=== PATIENT | female | born 1955 | race Caucasian/White ===

== ENCOUNTER 2017-08-27 10:32 | Emergency (ER) | payer OTHER ==
[2017-08-27] MEDS ORDERED: methylPREDNISolone Sod Succ/PF 125 MG/2 ML VIAL ONE (11:00)
[2017-08-27] MEDS ORDERED: Magnesium 2 GM/NS 0.9% 50 ML 2 GM in Premix Bag 1 BAG IVPB SCH (11:15)
== END 2017-08-27 12:55 | disposition home or self-care (01) ==
LOC: ERS 10:32
DX: J44.1 Chronic obstructive pulmonary disease with (acute) exacerbation (principal); E11.9 Type 2 diabetes mellitus without complications; I10 Essential (primary) hypertension; J45.909 Unspecified asthma, uncomplicated; F41.9 Anxiety disorder, unspecified; F17.210 Nicotine dependence, cigarettes, uncomplicated; Z79.4 Long term (current) use of insulin; Z79.899 Other long term (current) drug therapy
CPT/HCPCS: 96365; 96375; J2930; J3475

== ENCOUNTER 2018-01-10 09:31 | Inpatient (IN) | payer OTHER ==
--- NOTE | 2018-01-10 10:15 | RAD ---
PORTABLE CHEST: Date: 01/10/18 PROVIDED CLINICAL HISTORY: Cough. FINDINGS: Comparison with 03/10/16. Cardiac silhouette appears enlarged, which may be at least partially on the basis of portable techniq ue. Prominence of the pulmonary interstitium is redemonstrated. No definite focal consolidation, pleu ral fluid, or pneumothorax apparent. Evaluation is limited by patient body habitus. IMPRESSION: No definite evidence for an acute cardiopulmonary process. If there is persistent clinical concern, f ollow-up PA and lateral views of the chest are recommended. POS: [facility]
[2018-01-10 10:19] LABS: #Lymphocytes 0.7 thou/uL (1.20-3.40); #Monocytes 0.9 thou/uL (0.11-0.59); #Neutrophils 8.5 thou/uL (1.40-6.50); %Basophils 0.2 % (0.0-1.0); %Eosinophils 0.2 % (0.0-10.0); %Lymphocytes 6.5 % (21.0-51.0); %Monocytes 8.6 % (0.0-10.0); %Neutrophils 84.6 % (42.0-75.0); Hemoglobin 10.9 g/dL (12.0-16.0); Mean Corpuscular HGB CONC 32.1 g/dL (32.0-36.0); Mean Corpuscular Hemoglobin 29.1 pg (27.0-31.0); Mean Corpuscular Volume 90.6 fl (81.0-99.0); Mean Platelet Volume 7.8 fL (7.4-10.4); Platelet Count 239 thou/uL (130-400); RBC Distribution Width 17.4 % (11.5-14.5); Red Blood Cell (RBC) Count 3.75 mill/uL (4.20-5.40)
[2018-01-10 10:23] LABS: ALT (SGPT) Less than 7 U/L (8-55); AST (SGOT) 11 U/L (5-34); Albumin 3.7 g/dL (3.4-4.8); Alkaline Phosphatase 76 U/L (40-150); Anion Gap 12 mmol/L (10-20); BUN (Urea Nitrogen) 10 mg/dL (9.8-20.1); Bilirubin, Total 0.7 mg/dL (0.2-1.2); Calc. Creatinine Clearance 0 mL/min (70-130); Calcium 10.6 mg/dL (7.8-10.44); Carbon Dioxide 27 mmol/L (23-31); Chloride 96 mmol/L (98-107); Estimated GFR-MDRD Greater than 90; Glucose 169 mg/dL (80-115); Protein, Total 7.7 g/dL (6.0-8.3); Sodium 131 mmol/L (136-145)
[2018-01-10] MEDS ORDERED: Acetaminophen 500 MG TAB ONE (10:26)
[2018-01-10 10:33] LABS: CKMB 0.7 ng/mL (0-6.6); Troponin I Less than 0.010 ng/mL (< 0.028)
[2018-01-10] MEDS ORDERED: Azithromycin 500 MG VIAL ONE (10:51)
--- NOTE | 2018-01-10 12:18 | PDOC.FPRHP ---
- History of Present Illness Chief Complaint: COPD exacerbation History of Present Illness: This stable 62yo F is being admitted for treatment of COPD exacerbation. She has a pertinent PMH including COPD, autoimmune hepatitis,, tobacco abuse ( stopped 2 weeks ago), and DM. She is complaining of fever, cough, and body aches. This started about 6 days ago. She has been feeling weak overall during this time. She has been coughing up yellow sputum. She has a bipap machine at home which she normally uses only at night but she has been wearing it all day for the last few days. She was evaluated in clinic 3 days ago and was prescribed levoquin and prednisone but was not able to pick them up from the pharmacy because her car broke down and she had no one who could help her pick them up. She also complains of sore throat and ear pain. ED Course: steroids, rocephin, azithromycin, bipap cultures taken admitted to IMCU 2/2 sepsis and bipap requirement - Allergies/Adverse Reactions Allergies Allergy/AdvReac Type Severity Reaction Status Date / Time surgical steel Allergy Uncoded 01/10/18 12:35 - Home Medications Medication Instructions Recorded Confirmed Type Acetaminophen [Acetaminophen Extra 1,000 mg PO Q6HR PRN 01/10/18 01/10/18 History Strength] Acetaminophen [Acetaminophen Extra 500 mg PO Q6HR PRN 01/10/18 01/10/18 History Strength] Budesonide-Formoterol [Symbicort 1 puff INH BID 01/10/18 01/10/18 History 160-4.5] Cetirizine HCl [Zyrtec] 10 mg PO DAILY 01/10/18 01/10/18 History DULoxetine HCl 60 mg PO DAILY 01/10/18 01/10/18 History Fluticasone Propionate [Flonase 1 spray EA NARE DAILY 01/10/18 01/10/18 History Allergy Relief] Insulin Detemir 100 UNITS/ML 40 unit SQ QAM 01/10/18 01/10/18 History [Levemir] Lisinopril 10 mg PO DAILY 01/10/18 01/10/18 History Ondansetron [Zofran ODT] 4 mg PO Q6HR PRN 01/10/18 01/10/18 History Pantoprazole [Protonix] 40 mg PO BID 01/10/18 01/10/18 History Tiotropium [Spiriva Handihaler] 18 mcg INH DAILY 01/10/18 01/10/18 History azaTHIOprine [Azasan] 100 mg PO DAILY 01/10/18 01/10/18 History metFORMIN HCl 1,000 mg PO BID-WM 01/10/18 01/10/18 History - History PMHx: COPD, autoimmune hepatitis, PTSD, MDS, incontinence, tobacco abuse ( stopped 2 weeks ago), fibromyalgia, GERD, and DM PSHx: bowel resection, total hysterectomy FHx: patient adopted Social: 1/2 ppd smoker for 52 years, stopped 2 weeks ago - Review of Systems General: reports: fever/chills, fatigue. denies: weight/appetite/sleep changes Eyes: denies: eye pain, vision changes ENT: reports: nasal congestion, rhinorrhea Respiratory: reports: cough, congestion, shortness of breath Cardiovascular: denies: chest pain, palpitation, edema Gastrointestinal: denies: nausea, vomiting, diarrhea Genitourinary: reports: incontinence. denies: dysuria, polyuria Skin: denies: rashes, itching Musculoskeletal: denies: pain, arthritis/arthralgias Neurological: denies: numbness, weakness Psychological: denies: anxiety, depression - Vital signs BP: [144/88] HR: [105] RR: [34] Tmax: [100.7] Pox: [95]% on [bipap] Wt: [94.57 ] - Physical Exam Constitutional: NAD, awake, alert and oriented HEENT: normocephalic and atraumatic, PERRLA, TM's clear and intact (clear fluid behind TM), MMM Neck: supple, FROM Heart: RRR, normal S1/S2 -Lungs: inspiratory and expiratory wheezes throughout, good air movement, crackles at bases bilaterally Abdomen: soft, non-tender, bowel sounds present Musculoskeletal: normal structure, ROM grossly normal Neurological: no focal deficit, CN II-XII intact Skin: no rash/lesions, capillary refill <2 seconds Heme/Lymphatic: no unusual bruising or bleeding Psychiatric: normal mood and affect, good judgment and insight FMR H&P: Results - Labs Result Diagrams: 01/11/18 04:02 01/11/18 04:02 Lab results: WBC 10.0 thou/uL (4.8-10.8) 01/10/18 09:57 Hgb 10.9 g/dL (12.0-16.0) L 01/10/18 09:57 Hct 34.0 % (36.0-47.0) L 01/10/18 09:57 MCV 90.6 fl (81.0-99.0) 01/10/18 09:57 Plt Count 239 thou/uL (130-400) 01/10/18 09:57 Neutrophils % 84.6 % (42.0-75.0) H 01/10/18 09:57 Sodium 131 mmol/L (136-145) L 01/10/18 09:57 Potassium 4.0 mmol/L (3.5-5.1) 01/10/18 09:57 Chloride 96 mmol/L (98-107) L 01/10/18 09:57 Carbon Dioxide 27 mmol/L (23-31) 01/10/18 09:57 BUN 10 mg/dL (9.8-20.1) 01/10/18 09:57 Creatinine 0.64 mg/dL (0.6-1.1) 01/10/18 09:57 Glucose 169 mg/dL (80-115) H 01/10/18 09:57 Lactic Acid 1.6 mmol/L (0.5-2.2) 01/10/18 09:57 Calcium 10.6 mg/dL (7.8-10.44) H 01/10/18 09:57 Total Bilirubin 0.7 mg/dL (0.2-1.2) 01/10/18 09:57 AST 11 U/L (5-34) 01/10/18 09:57 ALT Less than 7 U/L (8-55) L 01/10/18 09:57 Alkaline Phosphatase 76 U/L (40-150) 01/10/18 09:57 CK-MB (CK-2) 0.7 ng/mL (0-6.6) 01/10/18 10:01 Serum Total Protein 7.7 g/dL (6.0-8.3) 01/10/18 09:57 Albumin 3.7 g/dL (3.4-4.8) 01/10/18 09:57 FMR H&P: A/P - Problem List (1) Acute respiratory failure with hypoxia Current Visit: No Status: Acute Code(s): J96.01 - ACUTE RESPIRATORY FAILURE WITH HYPOXIA (2) COPD with exacerbation Current Visit: No Status: Acute Code(s): J44.1 - CHRONIC OBSTRUCTIVE PULMONARY DISEASE W (ACUTE) EXACERBATION (3) Autoimmune hepatitis Current Visit: No Status: Chronic Code(s): K75.4 - AUTOIMMUNE HEPATITIS (4) Diabetes mellitus type 2 in obese Current Visit: No Status: Chronic Code(s): E11.9 - TYPE 2 DIABETES MELLITUS WITHOUT COMPLICATIONS; E66.9 - OBESITY, UNSPECIFIED (5) GERD (gastroesophageal reflux disease) Current Visit: No Status: Chronic Code(s): K21.9 - GASTRO-ESOPHAGEAL REFLUX DISEASE WITHOUT ESOPHAGITIS (6) HTN (hypertension) Current Visit: No Status: Chronic Code(s): I10 - ESSENTIAL (PRIMARY) HYPERTENSION (7) Tobacco abuse Current Visit: No Status: Chronic Code(s): Z72.0 - TOBACCO USE - Plan Stable 62 yo F w/ long smoking history admitted for COPD exacerbation # COPD exacerbation - yehuda sears in ED - levoquin, prednisone, duoneb - Bipap, wean as tolerated - blood cultures - meets sepsis criteria 2/2 tachycardia, fever, increased RR on presentation - CXR not convincing for PNA, f/u PA and lateral in AM # Autoimmune Hepatitis - cont home azathriopine - transaminases WNL # MDS - home meds # GERD - home meds # DM - home insulin regimen per patient - 40 U levemir AM - 20U humalog 75/25 w/ meals - accuchecks with meals & 0200, SSI # GERD - home meds # PPx - lovenox, SCDS # Code - full Dispo: 2-3 days pending improvement in resp status FMR H&P: Upper Level - Pertinent history Pt is a 62yo CF with PMHx COPD with a 25+ pack yr tobacco hx presents with a 5 day history of cough, fever (Tmax 100.7), sob and malaise. Also endorses increase in sputum production, yellow to green in color with inc need for duoneb treatment at home. 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 Pt did not start home meds as prescribed due to transportation difficulties. States she felt worse over the weekend, trying her home CPAP throughout the day to improve symptoms with minimal relief, therefore called EMS this am for progressive SOB. Her COPD hx is significant for multiple prior hospitalizations requiring BIPAP tx and abx, but has never been intubated. At baseline, pt endorses "good control " of COPD sxs with daily spiriva and duonebs. Not on supplemental O2 at home. PMHx also significant for DM2, autoimmune hepatitis, HTN, SHEBA on CPAP qhs. - Pertinent findings Pertinent findings include: Satting well on Bipap, but initially hypoxic at 85% on room air after duoneb. Febrile to 100.7. Appears mildly dehydrated/dry mucus membranes. Mild respiratory distress with bilateral insp/exp ronchi in both lung echeverria and exp wheezes. No peripheral edema, pulses intact. Soft abd with hepatomegaly. WBC 10 w/ left shift, chronic stable anemia, no BERENICE, mild hyponatremia to 131. CXR- diffuse peribronchial cuffing and perihilar increased markings diffusely. no focal consolidation or lobar infiltrate. - Plan Date/Time: 01/10/18 1217 62yo CF with PMHx DM2, autoimmune hepatitis, HTN, SHEBA and COPD p/w- 1) acute on chronic COPD- levaquin + steroids + duonebs scheduled & prn. continue bipap until able to wean to O2 by nasal cannula. given immunocompromising rx for authoimmune hepatitis tx, low threshold to expand abx coverage. no lactic acid and no wbc at this time. will monitor for clinical improvement and adjust therapy as indicated. 2) DM2- anticipate worsening with steroids given for COPD. Continue home insulin dose and add sliding scale. DM diet. 3) HTN- home rx 4) SHEBA- currently on Bipap. wean as tolerated and transition to cpap qhs. I, [Iman Blanca], have evaluated this patient and agree with findings/plan as outlined by above wireless internet installer resident. Pertinent changes/additions are listed in my assessment & plan. Attending Addendum - Attending Addendum Date/Time: 01/11/18 [id number] I personally evaluated the patient and discussed the management with Dr. Santoro at the time of admission yesterday, 01/10/2018. I agree with the History, Examination, Assessment and Plan documented above with any addition or exceptions noted below.
[2018-01-10 12:28] LABS: Bilirubin Moderate (Negative); Blood, Urine Moderate (Negative); Clarity TURBID (Clear); Glucose, Urine (Dipstick) Negative (Negative); Leukocyte Small (Negative); Nitrite Negative (Negative); Protein, Urine (Dipstick) 300 mg/dL (Neg-Trace)
[2018-01-10 12:31] LABS: Bacteria/HPF 4+ HPF (None Seen)
[2018-01-10] MEDS ORDERED: Sodium Chloride 0.9% 1,000 ML IV SCH (12:31)
[2018-01-10] MEDS ORDERED: Bisacodyl 5 MG TAB PO PRN (12:31)
[2018-01-10] MEDS ORDERED: Enoxaparin Sodium 30 MG/0.3 ML SYRINGE SC SCH (12:31)
[2018-01-10] MEDS ORDERED: Ondansetron ODT 4 MG TAB PO PRN (12:31)
[2018-01-10] MEDS ORDERED: cefTRIAXone\\ROCEPHIN 1 GM in Sodium Chloride 0.9% 100 ML IVPB SCH (12:31)
[2018-01-10 12:32] LABS: Pathc Cast-AUWi Flag 10.71 (0-2.49)
[2018-01-10 12:42] LABS: Crystals/HPF 2+ AMORPH URATES HPF (Negative); Hyaline Casts/LPF 0-3 HYALINE CAST LPF (0-3 Hyaline); RBC/HPF 0-3 HPF (0-3)
[2018-01-10 12:43] VITALS: BMI 40.7
[2018-01-10 12:43] LABS: Other Casts/LPF 0-3 COARSE GRAN LPF (0-3 Hyaline)
[2018-01-10] MEDS ORDERED: Ipratropium Bromide 2.5 ml Neb NEB PRN (12:47)
[2018-01-10] MEDS ORDERED: Magnesium Sulfate 3 GM, Admixture Fee 1 EACH in Sodium Chloride 0.9% 100 ML IVPB SCH (14:00)
[2018-01-10] MEDS ORDERED: Dextrose 50% Abboject 50 ML SYRINGE SLOW IVP PRN (14:41)
[2018-01-10] MEDS ORDERED: Dextrose 5% in Water 1,000 ML IV PRN (14:41)
[2018-01-10] MEDS: Sodium Chloride 0.9% 1,000 ML IV SCH ×2 (16:34→23:18)
[2018-01-10] MEDS ORDERED: Insulin NPH/Reg Insulin Hm 300 UNITS/3 ML VIAL SC SCH (17:00)
[2018-01-10] MEDS ORDERED: HumaLOG 300 UNITS/3 ML VIAL SC SCH ×2 (17:00→21:00)
--- NOTE | 2018-01-10 17:04 | CON ---
DATE OF CONSULTATION: 01/10/2018 HISTORY OF PRESENT ILLNESS: Ms. Can is a 62-year-old female. She tells me she has been followed by Dr. Bolton [facility]. She is followed by [facility]. She was admitted to the intermediate care unit on BiPAP. I was consulted. She has a prior history of chronic obstructive pulmonary disease. I do not find an y pulmonary function test in the records. She was admitted in 03/2016 here and what was felt to be C OPD exacerbation. She apparently has been hospitalized across town as well with this. She presented this morning with complaints of shortness of breath and has been admitted on BiPAP. PAST MEDICAL HISTORY: Remarkable for, 1. Autoimmune hepatitis on Imuran. 2. History of tobacco use. 3. Diabetes. 4. History of anxiety. 5. History of stress urinary incontinence. 6. History of chronic pain. 7. History of hypertension. 8. History of rhinitis. 9. History of reflux disease. 10. History of coronary disease. 11. History of treated hepatitis C. 12. History of a colectomy, it is not clear to me what the reason was. 13. History of foot surgery. 14. History of cholecystectomy. 15. History of herniorrhaphy. 16. History of hysterectomy. 17. History of cervical spine fusion. FAMILY HISTORY: There is no family history since she is adopted. SOCIAL HISTORY: She was a smoker up until 2 weeks ago. She is not a daily drinker. She does not us e drugs. CURRENT MEDICATIONS: Have been reviewed. REVIEW OF SYSTEMS: Twelve point is otherwise negative. She has had a cough, but no hemoptysis. PHYSICAL EXAMINATION: VITAL SIGNS: Temperature 99.2, heart rate 89, respiratory rate is 20, oximetry is 98% on BiPAP and b lood pressure 141/89. HEENT: Pupils are equal. Sclerae is anicteric. NECK: Supple, no lymphadenopathy. LUNGS: Clear and distant. HEART: Regular rhythm, no S3. ABDOMEN: Soft and nontender. EXTREMITIES: Without clubbing, cyanosis, or edema. NEUROLOGIC: Nonfocal. IMAGING DATA: Chest radiograph shows no alveolar infiltrates, reviewed by me. LABORATORY DATA: White count 10, hemoglobin 10.9, platelets 239. Sodium 131, potassium 4, chloride 96, bicarbonate 27, BUN 10, creatinine 0.64, glucose 169, calcium 1 0.6, and globulin is 4.0. IMPRESSION: 1. Acute on chronic respiratory failure secondary to chronic obstructive pulmonary disease exacerbat ion with hypoxemia. 2. Chronic obstructive pulmonary disease exacerbation with smoking use until 2 weeks ago. 3. Autoimmune hepatitis on Imuran. 4. Obesity? coexistent sleep apnea. 5. History of chronic pain. I do not feel she needs BiPAP. I reexamined her after BiPAP was removed and she was sitting on the s zhao of the bed using no accessory muscles and not in distress. We will continue with IV steroids, ne bulized treatments, and IV fluids. She could be switched to p.o. antibiotics since there is no clini balwinder evidence that she has pneumonia. This is a 70-minute consult in which 50% of the time was spent coordinating care on the unit.
[2018-01-10] MEDS: Insulin Regular 300 UNITS/3 ML VIAL SC PRN ×2 (18:27→20:16)
[2018-01-10] MEDS: Mometasone/Formoterol 120 PUFF INHALER INH SCH (18:38)
[2018-01-10] MEDS: Famotidine 20 MG TAB PO SCH (20:15)
[2018-01-10] MEDS: Docusate 100 MG CAP PO SCH (20:15)
[2018-01-10] MEDS ORDERED: Non-Formulary Item 1 EACH (Budesonide-Formoterol [Symbicort 80-4.5] 2 PUFF) INH SCH (21:00)
[2018-01-11 04:14] LABS: #Eosinphils 0.1 thou/uL (0.0-0.7); #Lymphocytes 0.2 thou/uL (1.20-3.40); #Monocytes 0.1 thou/uL (0.11-0.59); #Neutrophils 3.9 thou/uL (1.40-6.50); %Basophils 0.2 % (0.0-1.0); %Eosinophils 1.4 % (0.0-10.0); %Lymphocytes 5.1 % (21.0-51.0); %Monocytes 1.9 % (0.0-10.0); %Neutrophils 91.5 % (42.0-75.0); Hemoglobin 9.8 g/dL (12.0-16.0); Mean Corpuscular HGB CONC 32.1 g/dL (32.0-36.0); Mean Corpuscular Hemoglobin 29.3 pg (27.0-31.0); Platelet Count 191 thou/uL (130-400); RBC Distribution Width 16.8 % (11.5-14.5); Red Blood Cell (RBC) Count 3.36 mill/uL (4.20-5.40); White Blood Cell (WBC) Count 4.3 thou/uL (4.8-10.8)
[2018-01-11 04:29] LABS: ALT (SGPT) Less than 7 U/L (8-55); AST (SGOT) 11 U/L (5-34); Albumin 3.3 g/dL (3.4-4.8); Alkaline Phosphatase 65 U/L (40-150); Anion Gap 10 mmol/L (10-20); BUN (Urea Nitrogen) 11 mg/dL (9.8-20.1); Bilirubin, Total 0.2 mg/dL (0.2-1.2); Calc. Creatinine Clearance 143 mL/min (70-130); Carbon Dioxide 26 mmol/L (23-31); Chloride 104 mmol/L (98-107); Estimated GFR-MDRD Greater than 90; Globulin 3.7 g/dL (2.4-3.5); Glucose 253 mg/dL (80-115); Potassium 4.4 mmol/L (3.5-5.1); Sodium 136 mmol/L (136-145)
[2018-01-11] MEDS: Insulin Regular 300 UNITS/3 ML VIAL SC PRN (05:43)
[2018-01-11] MEDS: Sodium Chloride 0.9% 1,000 ML IV SCH (05:46)
--- NOTE | 2018-01-11 06:14 | PDOC.FM ---
- Subjective Subjective: Patient states that breathing has improved compared to yesterday. She has not required BiPAP since yesterday. - Objective MAR Reviewed: Yes Vital Signs & Weight: Vital Signs (12 hours) Temp Pulse Resp BP Pulse Ox 01/11/18 03:51 96.3 F L 77 22 H 116/59 L 96 01/11/18 02:01 63 18 99 01/10/18 23:58 96.5 F L 73 24 H 125/62 94 L 01/10/18 21:43 77 01/10/18 21:42 78 23 H 99 01/10/18 20:00 96.7 F L 86 18 95 01/10/18 19:34 96.7 F L 86 18 141/76 H 95 01/10/18 18:36 83 16 94 L Weight Weight 95.935 kg I&O: 01/09/18 01/10/18 01/11/18 05:59 06:59 06:59 Intake Total 3710 Output Total 1500 Balance 2210 Result Diagrams: 01/11/18 04:02 01/11/18 04:02 <Kaylin Wright - Last Filed: 01/11/18 08:26> - Objective Vital Signs & Weight: Vital Signs (12 hours) Temp Pulse Pulse Pulse Resp BP BP 01/11/18 11:11 98.1 F 96 18 01/11/18 10:01 133/74 01/11/18 09:50 79 76 133/74 01/11/18 09:31 72 18 01/11/18 07:53 97.0 F L 72 24 H 01/11/18 07:52 97.0 F L 72 24 H 01/11/18 03:51 96.3 F L 77 22 H 01/11/18 02:01 63 18 01/10/18 23:58 96.5 F L 73 24 H BP BP Pulse Ox Pulse Ox Pulse Ox 01/11/18 11:11 135/70 89 L 01/11/18 10:01 01/11/18 09:50 139/86 95 95 01/11/18 09:31 89 L 01/11/18 07:53 96 01/11/18 07:52 143/77 H 96 01/11/18 03:51 116/59 L 96 01/11/18 02:01 99 01/10/18 23:58 125/62 94 L Weight Weight 95.935 kg I&O: 01/10/18 01/11/18 01/12/18 06:59 06:59 06:59 Intake Total 3710 240 Output Total 1500 Balance 2210 240 Result Diagrams: 01/11/18 04:02 01/11/18 04:02 <Abner Williamson - Last Filed: 01/11/18 11:48> Phys Exam - Physical Examination Constitutional: NAD Respiratory: wheezing present Cardiovascular: RRR Gastrointestinal: soft RUQ tenderness to palpation Musculoskeletal: no edema Neurological: moves all 4 limbs Psychiatric: A&O x 3 <Kaylin Wright - Last Filed: 01/11/18 08:26> Dx/Plan (1) COPD with exacerbation Code(s): J44.1 - CHRONIC OBSTRUCTIVE PULMONARY DISEASE W (ACUTE) EXACERBATION Status: Acute Plan: - Switch IV to PO Levaquin. - Continue Q4 Duonebs with Q2 PRN - Continue Spiriva and Dulera. -consider changing IV steroids to PO. - antitussive added. - repeat CXR pending. (2) Normocytic anemia Code(s): D64.9 - ANEMIA, UNSPECIFIED Status: Acute Plan: -Possibly iron deficiency vs. anemia of chronic disease. - iron studies pending (3) Diabetes mellitus type 2 in obese Code(s): E11.9 - TYPE 2 DIABETES MELLITUS WITHOUT COMPLICATIONS; E66.9 - OBESITY , UNSPECIFIED Status: Chronic Plan: Levemir 40 units qhs. Diabetic diet added. Changed from mild to moderate SSI. Continue AC/HS accuchecks (4) GERD (gastroesophageal reflux disease) Code(s): K21.9 - GASTRO-ESOPHAGEAL REFLUX DISEASE WITHOUT ESOPHAGITIS Status: Chronic Plan: Continue Pepcid (5) HTN (hypertension) Code(s): I10 - ESSENTIAL (PRIMARY) HYPERTENSION Status: Chronic Plan: Continue Lisinopril. (6) Tobacco abuse Code(s): Z72.0 - TOBACCO USE Status: Chronic Plan: Counseling provided. (7) Autoimmune hepatitis Code(s): K75.4 - AUTOIMMUNE HEPATITIS Status: Chronic Plan: Azathioprine held on admission due to infection. - Plan Plan: Disposition: Improving, transfer to Medical floor. <Kaylin Wright - Last Filed: 01/11/18 08:26> Attending Addendum - Attending Addendum Date/Time: 01/11/18 1147 I personally evaluated the patient and discussed the management with Dr. Wright. I agree with and repeated the History, Examination, Assessment and Plan documented above with any addition or exceptions noted below. Improving. ROS: no f/c, no cp/palps. Diffuse wheezes, but moving air and no accessory use. COPD exac, continue current treatment. <Abner Williamson - Last Filed: 01/11/18 11:48>
[2018-01-11] MEDS ORDERED: Spiriva 18 MCG CAP (Box of 5 Caps) INH SCH ×2 (07:00)
[2018-01-11] MEDS ORDERED: predniSONE 20 MG TAB PO SCH (08:00)
[2018-01-11] MEDS ORDERED: guaiFENesin/Dextromethorphan 10 ML UDCUP PO PRN (08:26)
[2018-01-11] MEDS ORDERED: Lisinopril 5 MG TAB PO SCH (09:00)
[2018-01-11] MEDS ORDERED: Insulin Detemir 100 UNITS/ML 45 UNITS in Pre-Filled Syringe 1 EACH SC SCH (09:00)
[2018-01-11] MEDS ORDERED: Insulin Detemir 100 UNITS/ML 40 UNITS in Pre-Filled Syringe 1 EACH SC SCH (09:00)
[2018-01-11] MEDS ORDERED: azaTHIOprine 50 MG TAB PO SCH (09:00)
--- NOTE | 2018-01-11 09:28 | RAD ---
CHEST 2 VIEWS: HISTORY: COPD. COMPARISON: 01/10/18. FINDINGS: Cardiac silhouette and pulmonary vasculature are unremarkable. Mediastinum is midline. Lungs are hy perinflated. There is no confluent airspace consolidation, pneumothorax, or pleural fluid. Calcifie d granulomata are consistent with healed granulomatous disease. Degenerative changes of each shoulde r. route carrier leads overlie the chest. IMPRESSION: Chronic obstructive pulmonary disease. POS: [facility]
[2018-01-11 09:30] LABS: Iron 20 ug/dL (50-170); Iron Binding Capacity, Total 345 mcg/dL (265-497)
[2018-01-11] MEDS: Mometasone/Formoterol 120 PUFF INHALER INH SCH ×2 (09:32→19:48)
[2018-01-11] MEDS: Enoxaparin Sodium 40 MG/0.4 ML SYRINGE SC SCH (10:00)
[2018-01-11] MEDS: Famotidine 20 MG TAB PO SCH ×2 (10:01→20:33)
[2018-01-11] MEDS: Lisinopril 10 MG TAB PO SCH (10:01)
[2018-01-11] MEDS: Docusate 100 MG CAP PO SCH ×2 (10:01→20:33)
[2018-01-11] MEDS: Citalopram 20 MG TAB PO SCH (10:01)
[2018-01-11] MEDS ORDERED: cefTRIAXone\\ROCEPHIN 1 GM, Syringe 0.4 ML in Sterile Water 9.6 ML SLOW IVP SCH (11:00)
[2018-01-11] MEDS: HumaLOG 300 UNITS/3 ML VIAL SC PRN ×3 (11:17→20:44)
--- NOTE | 2018-01-11 12:47 | PRG ---
DATE OF SERVICE: 01/11/2018 Ms. Can is still wheezing. PHYSICAL EXAMINATION: VITAL SIGNS: She is afebrile, heart rate 96, respiratory rate is 18, oximetry is 89 on room air, blo od pressure 135/70. LUNGS: Lungs are remarkable for very coarse wheezes diffusely posteriorly and anteriorly. HEART: Regular rhythm. ABDOMEN: Soft. LABORATORY DATA: White count 4.3, hemoglobin 9.8, platelets 191,000. Sodium 136, potassium 4.4, chloride 104, bicarbonate 26, BUN 11, creatinine 0.6. She was taken to Radiology for a 2-view chest. Nothing new seen on her chest radiograph. IMPRESSION: Chronic obstructive pulmonary disease exacerbation. PLAN: Nebulized treatments, steroid treatments. She will be switched to p.o. antibiotics. She will probably be switched to p.o. steroids in the morning if she continues to improve. She should contin ue to be hydrated either p.o. or intravenously.
[2018-01-11] MEDS: Acetaminophen 325 MG TAB PO PRN (13:14)
--- NOTE | 2018-01-11 14:18 | PQF ---
DATE: 01-11-18 ATTN: DR. CHIQUI DESAI Please exercise your independent, professional judgment in responding to the clarification form. Clinical indicators are provided on the bottom of this form for your review Please check appropriate box(s) to clarify if the following diagnosis has been ruled in or ruled out: SEPSIS [ x ] Ruled in diagnosis [ ] Continue to treat [ x ] Resolved [ ] Ruled out diagnosis [ ] Other diagnosis [ ] Unable to determine In addition, please specify: Present on Admission (POA): [ x ] Yes [ ] No [ ] Unable to determine For continuity of documentation, please document condition throughout progress notes and discharge summary. Thank You. CLINICAL INDICATORS - SIGNS / SYMPTOMS / LABS H&P: ADMITTED TO [facility] 2/2 SEPSIS AND BIPAP REQUIREMENT, MEETS SEPSIS CRITERIA 2/2 TACHYCARDIA, FEVER, INCREASED RR ON PRESENTATION H&P: ACUTE COPD EXACERBATION WBC: 01-11-18: 4.2 RR: 34 TEMP: 100.7 HR: 105, 109 RISK FACTORS: ER DOCUMENTATION: SOB, HX OF COPD, FEVER, COUGH, PREVIOUS SMOKER, DM 2 TREATMENTS: (MAR) LEVAQUIN, IVF (This form is maintained as a part of the permanent medical record) 2014 [employer] All Rights Reserved [email or web address] Office: [phone] [facility] HOSPITALJoanie
[2018-01-11] MEDS ORDERED: Guaifenesin DM 100-10/5 ML UDCUP PO PRN (20:15)
[2018-01-11] MEDS: Nicotine 7 MG PATCH TD SCH (21:45)
[2018-01-11] MEDS ORDERED: Sterile Water 10 ML ONE (23:20)
[2018-01-12] MEDS ORDERED: HumaLOG 300 UNITS/3 ML VIAL SC PRN (02:50)
[2018-01-12] MEDS: HumaLOG 300 UNITS/3 ML VIAL SC PRN ×3 (05:57→18:20)
[2018-01-12] MEDS: Mometasone/Formoterol 120 PUFF INHALER INH SCH ×2 (05:59→19:15)
[2018-01-12] MEDS ORDERED: Spiriva 18 MCG CAP (Box of 5 Caps) INH SCH (07:00)
[2018-01-12] MEDS: Citalopram 20 MG TAB PO SCH (09:49)
[2018-01-12] MEDS: Docusate 100 MG CAP PO SCH ×2 (09:49→21:50)
[2018-01-12] MEDS: Lisinopril 10 MG TAB PO SCH (09:49)
[2018-01-12] MEDS: Famotidine 20 MG TAB PO SCH ×2 (09:50→21:50)
[2018-01-12] MEDS: Enoxaparin Sodium 40 MG/0.4 ML SYRINGE SC SCH (09:50)
[2018-01-12] MEDS: Insulin Detemir 100 UNITS/ML 50 UNITS in Pre-Filled Syringe 1 EACH SC SCH (09:50)
--- NOTE | 2018-01-12 12:05 | PDOC.FM ---
- Subjective Subjective: Patient states that her symptoms have not improved compared to yesterday. She continues to complain of productive cough and dyspnea worse without oxygen. - Objective Vital Signs & Weight: Vital Signs (12 hours) Temp Pulse Resp BP BP Pulse Ox 01/12/18 09:49 135/74 01/12/18 08:00 98.0 F 69 20 135/74 97 01/12/18 02:29 12 Weight Weight 95.935 kg I&O: 01/11/18 01/12/18 01/13/18 06:59 06:59 06:59 Intake Total 3710 480 Output Total 1500 Balance 2210 480 Result Diagrams: 01/11/18 04:02 01/11/18 04:02 <Kaylin Wright - Last Filed: 01/12/18 12:04> - Objective Vital Signs & Weight: Vital Signs (12 hours) Temp Pulse Resp BP BP Pulse Ox 01/12/18 09:49 135/74 01/12/18 08:00 98.0 F 69 20 135/74 97 01/12/18 02:29 12 Weight Weight 95.935 kg I&O: 01/11/18 01/12/18 01/13/18 06:59 06:59 06:59 Intake Total 3710 480 Output Total 1500 Balance 2210 480 Result Diagrams: 01/11/18 04:02 01/11/18 04:02 <Abner Williamson - Last Filed: 01/12/18 12:12> Phys Exam - Physical Examination Constitutional: NAD HEENT: PERRLA Respiratory: wheezing present Cardiovascular: RRR Musculoskeletal: no edema, pulses present Neurological: moves all 4 limbs Psychiatric: normal affect, A&O x 3 <Kaylin Wright - Last Filed: 01/12/18 12:04> Dx/Plan (1) COPD with exacerbation Code(s): J44.1 - CHRONIC OBSTRUCTIVE PULMONARY DISEASE W (ACUTE) EXACERBATION Status: Acute Plan: - Continue PO Levaquin. - Continue Q4 Duonebs with Q2 PRN - Continue Spiriva and Dulera. -continue PO steroids. - antitussive added. - Incentive spirometry; increase activity as tolerated. - possible d/c today (2) Normocytic anemia Code(s): D64.9 - ANEMIA, UNSPECIFIED Status: Acute Plan: - low Fe. - will begin supplemental Fe. (3) Diabetes mellitus type 2 in obese Code(s): E11.9 - TYPE 2 DIABETES MELLITUS WITHOUT COMPLICATIONS; E66.9 - OBESITY , UNSPECIFIED Status: Chronic Plan: Will increase long-acting insulin and add on mealtime insulin as well. Continue SSI (4) GERD (gastroesophageal reflux disease) Code(s): K21.9 - GASTRO-ESOPHAGEAL REFLUX DISEASE WITHOUT ESOPHAGITIS Status: Chronic Plan: Continue Pepcid (5) HTN (hypertension) Code(s): I10 - ESSENTIAL (PRIMARY) HYPERTENSION Status: Chronic Plan: Continue Lisinopril. (6) Tobacco abuse Code(s): Z72.0 - TOBACCO USE Status: Chronic Plan: Counseling provided. (7) Autoimmune hepatitis Code(s): K75.4 - AUTOIMMUNE HEPATITIS Status: Chronic Plan: Azathioprine held on admission due to infection. - Plan Plan: Disposition: stable, possible discharge tomorrow. <Kaylin Wright - Last Filed: 01/12/18 12:04> Attending Addendum - Attending Addendum Date/Time: 01/12/18 1211 I personally evaluated the patient and discussed the management with Dr. Wright. I agree with and repeated the History, Examination, Assessment and Plan documented above with any addition or exceptions noted below. ROS: no fever, chills; +cough and sputum production and shortness of breath No increased wob, exp wheezes, good air movement Continue nebs, steroids Increase insulin DVT/gi ppx - anticipate discharge tomorrow or the next day <Abner Williamson - Last Filed: 01/12/18 12:12>
[2018-01-12] MEDS: HumaLOG 300 UNITS/3 ML VIAL SC SCH ×2 (12:27→18:20)
[2018-01-12] MEDS ORDERED: Benzonatate 100 MG CAP PO SCH (15:00)
--- NOTE | 2018-01-12 19:58 | PRG ---
DATE OF SERVICE: 01/12/2018 SERVICE: Pulmonary Medicine. INTERVAL HISTORY: The patient is really doing quite well. She indicates she is 75% back to baseline , but is suggesting that she needs to be 98% back to baseline before should consider going home. She continues to have some dyspnea on exertion. She denies any chest pain, fevers, or chills. She is c oughing. The cough is becoming less productive, but she feels that there is still step down that she is having a hard time liberating. Otherwise, there were no overnight events. PHYSICAL EXAMINATION: VITAL SIGNS: Afebrile, pulse 68, blood pressure 138/84, respirations 20, saturation 94% on room air. GENERAL: The patient is awake, alert, no apparent distress. LUNGS: Decent air entry. There is a prolonged expiratory phase with polyphonic wheeze. There is al so large airway wheezing on inspiration and expiration. Dependent crackles are minimal throughout, b ibasilar regions. HEART: Normal rate, regular. ABDOMEN: Soft, nontender, nondistended. Bowel sounds are positive. MUSCULOSKELETAL: There is no cyanosis or clubbing. There is no pitting. GENITOURINARY: No Hong. NEUROLOGIC: Grossly nonfocal. ASSESSMENT: 1. Acute on chronic hypoxic respiratory failure. 2. Chronic obstructive pulmonary disease with acute exacerbation. DISCUSSION AND PLAN: We will continue antibiotics, nebulized medications and steroids. We will swit ch over to p.o. steroids. IV fluids will be interrupted. I will continue our Mucinex, but I will ge t rid of anything going to suppress her cough. If she continues to make progress and is ready to go home by tomorrow, I think this would be perfectly reasonable. She will need to complete a 10-day cou rse of prednisone, and a 7-day course of antibiotics.
[2018-01-12] MEDS: Nicotine 7 MG PATCH TD SCH (21:51)
[2018-01-13] MEDS: Acetaminophen 325 MG TAB PO PRN (03:56)
[2018-01-13] MEDS: Mometasone/Formoterol 120 PUFF INHALER INH SCH ×2 (06:32→19:07)
--- NOTE | 2018-01-13 06:48 | PDOC.FM ---
- Subjective Subjective: Pt states she feels better with CPAP last night. Walking and off and on O2. Not on home O2. Admits to wheezing but state she is much improved. - Objective Vital Signs & Weight: Vital Signs (12 hours) Temp Pulse Resp BP Pulse Ox 01/13/18 06:29 69 16 91 L 01/13/18 04:00 94 L 01/12/18 22:02 60 16 01/12/18 20:00 98.3 F 60 16 139/75 95 01/12/18 19:17 96 20 96 01/12/18 19:15 68 16 95 Weight Weight 95.935 kg I&O: 01/11/18 01/12/18 01/13/18 06:59 06:59 06:59 Intake Total 3710 480 Output Total 1500 Balance 2210 480 Result Diagrams: 01/11/18 04:02 01/11/18 04:02 <Kevin Ibrahim - Last Filed: 01/13/18 08:52> - Objective Vital Signs & Weight: Vital Signs (12 hours) Temp Pulse Resp BP BP BP Pulse Ox 01/13/18 09:52 85 18 93 L 01/13/18 08:56 142/76 H 01/13/18 08:00 98.2 F 67 20 142/76 H 93 L 01/13/18 06:29 69 16 91 L 01/13/18 04:00 94 L 01/13/18 03:45 79 131/77 94 L Weight Weight 95.935 kg I&O: 01/12/18 01/13/18 01/14/18 06:59 06:59 06:59 Intake Total 480 Balance 480 Result Diagrams: 01/11/18 04:02 01/11/18 04:02 <Abner Williamson - Last Filed: 01/13/18 11:20> Phys Exam - Physical Examination HEENT: PERRLA, moist MMs Neck: no nodes, no JVD Respiratory: wheezing present (diffuse b/l mostly expiratory) Cardiovascular: RRR, no significant murmur, no rub Gastrointestinal: soft, non-tender, no distention Musculoskeletal: no edema, pulses present Neurological: non-focal, normal sensation Psychiatric: normal affect, A&O x 3 <Kevin Ibrahim - Last Filed: 01/13/18 08:52> Dx/Plan (1) Normocytic anemia Code(s): D64.9 - ANEMIA, UNSPECIFIED Status: Acute (2) COPD with exacerbation Code(s): J44.1 - CHRONIC OBSTRUCTIVE PULMONARY DISEASE W (ACUTE) EXACERBATION Status: Acute (3) Hepatitis C Code(s): B19.20 - UNSPECIFIED VIRAL HEPATITIS C WITHOUT HEPATIC COMA Status: Acute (4) Diabetes mellitus type 2 in obese Code(s): E11.9 - TYPE 2 DIABETES MELLITUS WITHOUT COMPLICATIONS; E66.9 - OBESITY , UNSPECIFIED Status: Chronic (5) GERD (gastroesophageal reflux disease) Code(s): K21.9 - GASTRO-ESOPHAGEAL REFLUX DISEASE WITHOUT ESOPHAGITIS Status: Chronic (6) HTN (hypertension) Code(s): I10 - ESSENTIAL (PRIMARY) HYPERTENSION Status: Chronic (7) Tobacco abuse Code(s): Z72.0 - TOBACCO USE Status: Chronic (8) SHEBA (obstructive sleep apnea) Code(s): G47.33 - OBSTRUCTIVE SLEEP APNEA (ADULT) (PEDIATRIC) Status: Acute - Plan Plan: COPD Exacerbation: Continue prednisone, scheduled & PRN Albert Watts. On RA in room and now using CPAP at night. Continue to monitor respiratory status and maintain sats >88% Anemia: (Normocytic) - stable, continue Iron therapy. T2DM: BG now controlledon Levamir, mealtime insulin and SSI. On prednisone. GERD: Continue Pepcid OSAL CPAP nightly HTN: Controlled on Lisinopril Autoimmune Hepatitis: Holding medications currently. LFT's WNL. <Kevin Ibrahim - Last Filed: 01/13/18 08:52> Attending Addendum - Attending Addendum Date/Time: 01/13/18 1118 I personally evaluated the patient and discussed the management with Dr. Rowley. I agree with and repeated the History, Examination, Assessment and Plan documented above with any addition or exceptions noted below. Pt doing better. Improved cough/shortness of breath. Now with back pain x 3 days (had not told us about previously). No numbness, tingling, difficulty urinating. Will order x-rays. <Abner Williamson - Last Filed: 01/13/18 11:20>
--- NOTE | 2018-01-13 08:00 | PRG ---
DATE OF SERVICE: 01/13/2018 SERVICE: Pulmonary Medicine. INTERVAL HISTORY: The patient is doing really well from a respiratory standpoint. She got an excell ent night of sleep, because she was using her BiPAP. She continues to feel congested. She has a sobia d time getting the mucus up. Outside of this, there has been no interval change to her condition, an d she is actually pretty pleased with the progress she is making. PHYSICAL EXAMINATION: VITAL SIGNS: Afebrile, pulse 69, blood pressure 131/77, respirations 16, saturation 91% on room air with her home BiPAP. HEENT: Normocephalic, atraumatic. Sclerae are white. Conjunctivae pink. Oral and nasal mucosa is moist without lesions. LUNGS: Decent air entry. There is a prolonged expiratory phase. Rhonchi are extensive throughout b ilateral lung echeverria. They change with cough, but do not clear. No crackles. HEART: Normal rate, regular. ABDOMEN: Soft, nontender, nondistended. Bowel sounds are positive. MUSCULOSKELETAL: No cyanosis or clubbing. There is no pitting. : No Hong. LABORATORY DATA: Blood cultures negative x2. Urine culture is negative. ASSESSMENT: 1. Acute on chronic hypoxic respiratory failure, resolved to baseline. 2. Chronic obstructive pulmonary disease with acute exacerbation. PLAN: We will continue supportive care including antibiotics, nebulized medications, and steroids. When the patient is ready, she is prepared for transition out of the hospital. We will continue our mucolytics. Pulmonary Critical Care will continue to follow if she remains in-house. Ultimately, kota herrera will require a 10-day course of prednisone and a 7-day course of antibiotic.
[2018-01-13] MEDS: predniSONE 20 MG TAB PO SCH (08:54)
[2018-01-13] MEDS: guaiFENesin ER 600 MG TAB PO SCH ×2 (08:54→20:35)
[2018-01-13] MEDS: Citalopram 20 MG TAB PO SCH (08:54)
[2018-01-13] MEDS: Famotidine 20 MG TAB PO SCH ×2 (08:56→20:35)
[2018-01-13] MEDS: Lisinopril 10 MG TAB PO SCH (08:56)
[2018-01-13] MEDS: Docusate 100 MG CAP PO SCH ×2 (08:56→20:35)
[2018-01-13] MEDS: Insulin Detemir 100 UNITS/ML 50 UNITS in Pre-Filled Syringe 1 EACH SC SCH (08:56)
[2018-01-13] MEDS: HumaLOG 300 UNITS/3 ML VIAL SC SCH ×3 (08:57→16:57)
[2018-01-13] MEDS: Enoxaparin Sodium 40 MG/0.4 ML SYRINGE SC SCH (08:58)
--- NOTE | 2018-01-13 12:20 | RAD ---
LUMBAR SPINE THREE VIEWS: History: 62-year-old female with history of new onset low back pain. FINDINGS: There is multilevel disc osteophytosis and facet arthrosis. Vascular calcifications are noted. There is a small punctate calcification adjacent to the right L2 transverse process which appears to be sta ble when compared to a prior CT scan, 01-12-15. IMPRESSION: Lumbar spine spondylosis. No acute fracture or dislocation. POS: [facility]
[2018-01-13] MEDS: HumaLOG 300 UNITS/3 ML VIAL SC PRN ×2 (12:31→16:57)
[2018-01-13] MEDS: Nicotine 7 MG PATCH TD SCH (20:36)
[2018-01-14] MEDS: Mometasone/Formoterol 120 PUFF INHALER INH SCH (05:56)
--- NOTE | 2018-01-14 06:06 | PDOC.FM ---
- Subjective Subjective: Patient complains of continue back pain not worsening from yesterday. States respiratory sx are improving. sleeping well and exercisig, but states she is still very weak. - Objective Vital Signs & Weight: Vital Signs (12 hours) Temp Pulse Resp BP Pulse Ox 01/14/18 05:56 66 16 92 L 01/14/18 05:55 66 14 92 L 01/14/18 02:17 67 16 92 L 01/13/18 22:00 65 16 95 01/13/18 20:00 98.0 F 66 18 144/78 H 92 L 01/13/18 19:07 64 16 96 01/13/18 19:05 65 16 96 Weight Weight 95.935 kg I&O: 01/12/18 01/13/18 01/14/18 06:59 06:59 06:59 Intake Total 480 Balance 480 Result Diagrams: 01/11/18 04:02 01/11/18 04:02 <Kevin Ibrahim - Last Filed: 01/14/18 08:05> - Objective Vital Signs & Weight: Vital Signs (12 hours) Temp Pulse Resp BP BP Pulse Ox 01/14/18 09:39 62 16 93 L 01/14/18 09:05 134/77 01/14/18 08:00 98.1 F 65 20 134/77 93 L 01/14/18 05:56 66 16 92 L 01/14/18 05:55 66 14 92 L 01/14/18 02:17 67 16 92 L 01/13/18 22:00 65 16 95 Weight Weight 95.935 kg Result Diagrams: 01/11/18 04:02 01/11/18 04:02 <Abner Williamson - Last Filed: 01/14/18 09:42> Phys Exam - Physical Examination Constitutional: NAD HEENT: PERRLA, moist MMs Neck: no nodes, no JVD Respiratory: wheezing present (mild diffuse expiratory with ronchi b/l) Cardiovascular: RRR, no significant murmur Gastrointestinal: soft, non-tender Musculoskeletal: no edema, pulses present Neurological: non-focal, normal sensation (LE exam normal sensation, strength and ROM) Lymphatic: no nodes Psychiatric: normal affect Skin: no rash, normal turgor <Kevin Ibrahim - Last Filed: 01/14/18 08:05> Dx/Plan (1) Normocytic anemia Code(s): D64.9 - ANEMIA, UNSPECIFIED Status: Acute (2) COPD with exacerbation Code(s): J44.1 - CHRONIC OBSTRUCTIVE PULMONARY DISEASE W (ACUTE) EXACERBATION Status: Acute (3) Hepatitis C Code(s): B19.20 - UNSPECIFIED VIRAL HEPATITIS C WITHOUT HEPATIC COMA Status: Acute (4) Diabetes mellitus type 2 in obese Code(s): E11.9 - TYPE 2 DIABETES MELLITUS WITHOUT COMPLICATIONS; E66.9 - OBESITY , UNSPECIFIED Status: Chronic (5) GERD (gastroesophageal reflux disease) Code(s): K21.9 - GASTRO-ESOPHAGEAL REFLUX DISEASE WITHOUT ESOPHAGITIS Status: Chronic (6) HTN (hypertension) Code(s): I10 - ESSENTIAL (PRIMARY) HYPERTENSION Status: Chronic (7) Tobacco abuse Code(s): Z72.0 - TOBACCO USE Status: Chronic (8) SHEBA (obstructive sleep apnea) Code(s): G47.33 - OBSTRUCTIVE SLEEP APNEA (ADULT) (PEDIATRIC) Status: Acute - Plan Plan: Acute COPD Exacerbation: Much improved and now on RA with sats >90%, but still fatigued. When patient is discharged, plan 10d Prednisone course along with 7d antibiotic course. Continue to monitor respiratory status and maintain sats >88% . Pulm following. PT/OT Acute on chronic Respiratory Failure: Improving Anemia: (Normocytic) - stable, continue Iron therapy. T2DM: BG now controlled on Levamir, mealtime insulin and SSI. On prednisone. continue Metformin upon discharge. GERD: Continue Pepcid SHEBA: BiPAP nightly Chronic HTN: Controlled on Lisinopril. Slightly elevated- will monitor. Autoimmune Hepatitis: Stable, AZT re-started yesterday. LFT's WNL. <Kevin Ibrahim - Last Filed: 01/14/18 08:05> Attending Addendum - Attending Addendum Date/Time: 01/14/18 5540 I personally evaluated the patient and discussed the management with Dr. Ibrahim. I agree with and repeated the History, Examination, Assessment and Plan documented above with any addition or exceptions noted below. ROS: no fever/chills, no chest pain, no n/v Exam continues to improve with decreased wheezing and improved air movement labs and imaging reviewed. COPD exacerbation improved, anticipate discharge later today vs tomorrow Back pain stable/improved. Continue PRNs, no evident of fracture DVT/gi ppx <Abner Williamson - Last Filed: 01/14/18 09:42>
[2018-01-14] MEDS ORDERED: azaTHIOprine 50 MG TAB PO SCH (09:00)
[2018-01-14] MEDS: guaiFENesin ER 600 MG TAB PO SCH (09:03)
[2018-01-14] MEDS: predniSONE 20 MG TAB PO SCH (09:03)
[2018-01-14] MEDS: Citalopram 20 MG TAB PO SCH (09:04)
[2018-01-14] MEDS: Lisinopril 10 MG TAB PO SCH (09:05)
[2018-01-14] MEDS: Docusate 100 MG CAP PO SCH (09:05)
[2018-01-14] MEDS: HumaLOG 300 UNITS/3 ML VIAL SC SCH ×2 (09:05→12:26)
[2018-01-14] MEDS: Enoxaparin Sodium 40 MG/0.4 ML SYRINGE SC SCH (09:08)
[2018-01-14] MEDS: Insulin Detemir 100 UNITS/ML 50 UNITS in Pre-Filled Syringe 1 EACH SC SCH (09:18)
[2018-01-14] MEDS: Famotidine 20 MG TAB PO SCH (09:19)
[2018-01-14 15:59] VITALS: BP 144/79; TEMP 98
--- NOTE | 2018-01-14 16:59 | PRG ---
DATE OF SERVICE: 01/14/2018 SERVICE: Pulmonary Medicine. INTERVAL HISTORY: The patient is doing outstanding from a cardiovascular and respiratory standpoint. She denies any current chest pain, shortness of breath, fevers or chills. Otherwise, there has bee n no interval change to her condition. She has essentially returned to her usual state of health. S he was up walking around the [place] on two separate occasions today and she has been out of bed to sit into a chair 3 times daily. PHYSICAL EXAMINATION: VITAL SIGNS: Afebrile, pulse 71, blood pressure 144/79, respirations 18, saturation 94% on room air. GENERAL: The patient is awake, alert, no apparent distress. LUNGS: Excellent air entry with no prolonged expiratory phase, wheezing, rhonchi or crackles. HEART: Normal rate, regular. ABDOMEN: Soft, nontender, nondistended. Bowel sounds are positive. MUSCULOSKELETAL: No cyanosis or clubbing. No pitting in the bilateral lower extremities. NEUROLOGIC: Grossly nonfocal. ASSESSMENT: 1. Acute hypoxic respiratory failure, resolved. 2. Chronic obstructive pulmonary disease with acute exacerbation, resolving. PLAN: The patient is doing fantastic from a respiratory perspective. She is stable for transition h ome today or tomorrow. She will need a 10-day course of prednisone and 7-day course of antibiotic. She can follow up in the outpatient setting with Dr. Carbajal.
--- NOTE | 2018-01-14 22:14 | DIS-2 ---
DATE OF ADMISSION: 01/10/2018 DATE OF DISCHARGE: 01/14/2018 CONSULTS: Pulmonology did follow the patient throughout her stay. PROCEDURES: On 01/13/2018, she underwent an x-ray of her lumbar spine to evaluate for potential comp ression fracture and was negative. She also received a chest x-ray on 01/11/2018, which showed COPD. ADMISSION DIAGNOSES: Chronic obstructive pulmonary disease exacerbation, acute on chronic respirator y failure. SECONDARY DIAGNOSES: Community-acquired pneumonia, autoimmune hepatitis, type 2 diabetes, hypertensi on, gastroesophageal reflux disease, Gaytan's esophagus, [id number] smoking history. DISCHARGE DIAGNOSES: Chronic obstructive pulmonary disease exacerbation. DISCHARGE MEDICATIONS: She will be discharged home on a prednisone taper 40 mg for 2 days, 20 mg mina ly for 3 days, 10 mg daily for 3 days, then 5 mg daily for 2 days. She will be discharged on Levaqui n 500 mg daily for 7 days, discharged with lisinopril 10 mg daily, Insulin Detemir 40 units q.a.m., m etformin 1000 p.o. b.i.d., pantoprazole 40 p.o. b.i.d. Cetirizine 10 mg p.o. daily, azathioprine 100 mg p.o. daily, Flonase 1 spray daily in the nostril, Duloxetine 60 mg p.o. daily, Tiotropium 18 mcg i nhalation daily, Symbicort 1 puff b.i.d. HOSPITAL COURSE: The patient is a 62-year-old female with COPD, who presenting with chills and short ness of breath for 3 days. She was initially admitted to the ICU with breathing BiPAP intervention, but quickly improved and was transferred to the floor. Her respiratory status improved throughout he r stay, on steroids and albuterol inhalers scheduled. She was also given Levaquin as she presented w ith a fever also. The patient is not on home oxygen, but does use BiPAP nightly and during the day a s needed. She was able to exercise with physical therapy and maintained her saturations above 88% on room air. Also, during the stay, she was evaluated for her compression fracture of her lumbar spine . X-rays were negative, only showing spondylosis and degenerative changes. She does suffer from chr onic pain secondary to this cause. Azathioprine was restarted during her stay for her autoimmune hep atitis. Patient will be discharged home with follow up with Dr. Kaylin Wright within 1 week. DISPOSITION: Stable. DISCHARGE INSTRUCTIONS: 1. Location: Home. 2. Diet: Regular. 3. Activity: As tolerated. 4. Followup: Follow up with Dr. Wright in 7 days.
--- NOTE | 2018-01-16 13:12 | EKG ---
Test Reason : Blood Pressure : / mmHG Vent. Rate : 101 BPM Atrial Rate : 101 BPM P-R Int : 162 ms QRS Dur : 068 ms QT Int : 326 ms P-R-T Axes : 000 083 060 degrees QTc Int : 422 ms Sinus tachycardia Septal infarct , age undetermined Abnormal ECG Confirmed by DIRK LEE ([id number]), editorial manager WALTER TARANGO ([id number]) on 01/16/2018 1:12:00 PM Referred By: Confirmed By:DIRK LEE
== END 2018-01-14 16:00 | disposition home or self-care (01) | DRG 871 ==
LOC: ERS 09:31 → IMCU/EMU 12:25 → T4-B 01-11 14:02
PROVIDERS: ADMIT Family Medicine; ATTEND Family Medicine
DX: A41.9 Sepsis, unspecified organism (principal); J96.21 Acute and chronic respiratory failure with hypoxia; J18.9 Pneumonia, unspecified organism; B17.10 Acute hepatitis C without hepatic coma; K75.4 Autoimmune hepatitis; J44.1 Chronic obstructive pulmonary disease with (acute) exacerbation; E87.1 Hypo-osmolality and hyponatremia; Z68.41 Body mass index [BMI] 40.0-44.9, adult; D64.9 Anemia, unspecified; E11.9 Type 2 diabetes mellitus without complications; E66.9 Obesity, unspecified; K21.9 Gastro-esophageal reflux disease without esophagitis; I10 Essential (primary) hypertension; G47.33 Obstructive sleep apnea (adult) (pediatric); F43.10 Post-traumatic stress disorder, unspecified; Z87.891 Personal history of nicotine dependence; K22.70 Barrett's esophagus without dysplasia
CPT/HCPCS: 36415; 36416; 71045; 71046; 72100; 80053; 81003; 81015; 82553; 82728; 83540; 83550; 83605; 84484; 85025; 87040; 87086; 93005; 94640; 94660; 94760; 96365; 96375; A4216; G8978-GP-CK; G8979-GP-CJ; G8987-GO-CI; G8988-GO-CI; G8989-GO-CI; J0456; J0696; J1650; J1815; J1956; J2920; J3475; J7050; J7500; J7506; J7620

== ENCOUNTER 2018-02-18 07:24 | Outpatient (CLI) | payer OTHER ==
[2018-02-18] MEDS ORDERED: Iopamidol 370 76% 100 ML VIAL ONE (09:00)
[2018-02-18 09:19] LABS: Estimated GFR-MDRD - POC Greater than 90
--- NOTE | 2018-02-18 11:37 | CT ---
CT ABDOMEN WITH CONTRAST: Date: 02/18/18 HISTORY: Abdominal pain. COMPARISON: CT dated 01/12/15. FINDINGS: In the right lung base, there is a triangular-shaped opacity measuring 2.0 x 1.3 x 5.5 cm. Adjacent p leura is not specifically thickened. There is lipomatous hypertrophy of the interatrial septum. No pe ricardial effusion. There are multiple cystic structures throughout both kidneys. Largest cyst in the right kidney measur es up to 6.1 cm, increased in size from comparison examination. Increased from prior exam is parapelv ic cyst in the left kidney. Size increased hypodensity within medulla of superior pole left kidney, m easuring fluid attenuation also likely a cyst. Mild reservoir effect intrahepatic and extrahepatic biliary system. Very mild nodularity to the contour of the liver. Aortoiliac contour is normal. No adenopathy. Spleen is unremarkable. No significant evidence of variceal development. Small sliding hiatal hernia. Moderate degenerative disease of L5-S1. IMPRESSION: 1. Focal area of triangular mass-like density in the right lung base. This may be sequelae of mass, consolidation, or atelectasis. A follow-up CT of the chest in 2 weeks is recommended. 2. Bilateral renal cysts, slight increase in size since comparison exam. 3. Slight nodular appearance to liver consistent with cirrhosis. 4. Mild lipomatous hypertrophy inter atrial septum. 5. Of note that this is only a CT abdomen and not a CT abdomen/pelvis; therefore, pelvic structures are not interrogated. CODE: T POS: [facility]
== END 2018-02-18 07:25 | disposition home or self-care (01) ==
LOC: SCSCT 07:24
PROVIDERS: ATTEND Internal Medicine Gastroenterology
DX: R10.31 Right lower quadrant pain (principal); N28.1 Cyst of kidney, acquired; D17.79 Benign lipomatous neoplasm of other sites
CPT/HCPCS: 74160; 82565

== ENCOUNTER 2018-03-12 07:30 | Outpatient (CLI) | payer OTHER ==
[2018-03-12] MEDS ORDERED: ISOVUE-370 76%-LOCM 1 ML ONE (13:05)
== END 2018-03-12 07:31 | disposition home or self-care (01) ==
LOC: BICCT 07:30
PROVIDERS: ATTEND Internal Medicine Hematology & Oncology
DX: R91.8 Other nonspecific abnormal finding of lung field (principal); D53.8 Other specified nutritional anemias; J98.4 Other disorders of lung
CPT/HCPCS: 71260

== ENCOUNTER 2018-03-25 13:05 | Day surgery (SDC) | payer OTHER ==
[2018-03-25] MEDS ORDERED: Sodium Chloride 0.9% 20 ML ONE (13:17)
[2018-03-25 13:23] VITALS: BP 151/77; TEMP 98.7
[2018-03-25] MEDS ORDERED: Ferumoxytol (NON ERSD) 510 MG in Sodium Chloride 0.9% 250 ML 150 ML IVPB SCH (13:30)
[2018-03-25 14:20] LABS: #Lymphocytes 1.1 thou/uL (1.20-3.40); #Monocytes 0.3 thou/uL (0.11-0.59); #Neutrophils 2.4 thou/uL (1.40-6.50); %Basophils 0.3 % (0.0-1.0); %Monocytes 7.5 % (0.0-10.0); %Neutrophils 63.2 % (42.0-75.0); Hemoglobin 8.9 g/dL (12.0-16.0); Mean Corpuscular Hemoglobin 25.1 pg (27.0-31.0); Mean Corpuscular Volume 81.1 fl (81.0-99.0); Mean Platelet Volume 9.2 fL (7.4-10.4); Platelet Count 202 thou/uL (130-400); RBC Distribution Width 17.4 % (11.5-14.5); Red Blood Cell (RBC) Count 3.56 mill/uL (4.20-5.40); White Blood Cell (WBC) Count 3.8 thou/uL (4.8-10.8)
== END 2018-03-25 15:28 | disposition home or self-care (01) ==
LOC: ONC/OP 13:05
PROVIDERS: ATTEND Nurse Practitioner Acute Care
DX: D53.8 Other specified nutritional anemias (principal)
CPT/HCPCS: 85025; 96365; A4216; J7050; Q0138

== ENCOUNTER 2018-04-01 12:55 | Day surgery (SDC) | payer OTHER ==
[2018-04-01] MEDS ORDERED: Ferumoxytol (ERSD) 510 MG in Sodium Chloride 0.9% 250 ML 150 ML IV SCH (13:30)
[2018-04-01 14:04] VITALS: BP 163/76; TEMP 97.8
== END 2018-04-01 14:51 | disposition home or self-care (01) ==
LOC: ONC/OP 12:55
PROVIDERS: ATTEND Internal Medicine Hematology & Oncology
DX: D53.8 Other specified nutritional anemias (principal)
CPT/HCPCS: 96365; J7050; Q0139

== ENCOUNTER 2018-04-08 13:03 | Day surgery (SDC) | payer OTHER ==
[2018-04-08] MEDS ORDERED: Ferumoxytol (ERSD) 510 MG in Sodium Chloride 0.9% 250 ML 150 ML IV SCH (13:15)
[2018-04-08 14:46] VITALS: BP 133/63; TEMP 98.9
== END 2018-04-08 15:47 | disposition home or self-care (01) ==
LOC: ONC/OP 13:03
PROVIDERS: ATTEND Internal Medicine Hematology & Oncology
DX: D53.8 Other specified nutritional anemias (principal)
CPT/HCPCS: 96365; J7050; Q0139

== ENCOUNTER 2018-08-13 11:36 | Day surgery (SDC) | payer OTHER ==
[2018-08-13] MEDS ORDERED: Ferumoxytol (NON ERSD) 510 MG in Sodium Chloride 0.9% 150 ML IVPB SCH (12:00)
[2018-08-13] MEDS ORDERED: Sodium Chloride 0.9% 20 ML ONE (12:57)
[2018-08-13 13:30] VITALS: BP 162/84; TEMP 98.3
[2018-08-13] MEDS ORDERED: Prevnar 13-Val Conj/PF 0.5 ML SYRINGE IM ONE (16:00)
== END 2018-08-13 14:51 | disposition home or self-care (01) ==
LOC: ONC/OP 11:36
PROVIDERS: ATTEND Internal Medicine Hematology & Oncology
DX: D53.8 Other specified nutritional anemias (principal); Z79.4 Long term (current) use of insulin; Z79.51 Long term (current) use of inhaled steroids; Z79.52 Long term (current) use of systemic steroids; Z79.899 Other long term (current) drug therapy; Z91.048 Other nonmedicinal substance allergy status
CPT/HCPCS: 96365; J7050; Q0138

== ENCOUNTER 2018-08-25 08:15 | Day surgery (SDC) | payer OTHER ==
[2018-08-25] MEDS ORDERED: Sodium Chloride 0.9% 20 ML ONE (08:33)
[2018-08-25] MEDS ORDERED: Ferumoxytol (NON ERSD) 510 MG in Sodium Chloride 0.9% 250 ML 150 ML IVPB SCH (09:00)
== END 2018-08-25 10:32 | disposition home or self-care (01) ==
LOC: ONC/OP 08:15
PROVIDERS: ATTEND Internal Medicine Hematology & Oncology
DX: D53.8 Other specified nutritional anemias (principal)
CPT/HCPCS: 96365; J7050; Q0138

== ENCOUNTER 2018-10-22 08:25 | Outpatient (CLI) | payer OTHER ==
--- NOTE | 2018-10-22 10:40 | ULT ---
HEPATIC DOPPLER ULTRASOUND: HISTORY: Autoimmune hepatitis. COMPARISON: CT examination from 02/18/2018. FINDINGS: The visualized portions of the aorta, IVC, and pancreas are unremarkable. The liver is enlarged, yuly suring 22 cm in length. No mass. Prior cholecystectomy. The common bile duct measures 8 mm. There is increased hepatic echotexture. The portal vein is patent with antegrade flow. There is normal phasicity of the hepatic and portal veins. The spleen measures 10.5 cm in length. T he splenic artery and veins are patent. There is a large cyst in the right kidney. IMPRESSION: 1. Hepatomegaly with increased echotexture, suggesting underlying hepatocellular disease. 2. Normal directional flow of the hepatic vessels. POS: [facility]
== END 2018-10-22 08:26 | disposition home or self-care (01) ==
LOC: BICULT 08:25
PROVIDERS: ATTEND Physician Assistant Medical
DX: K75.4 Autoimmune hepatitis (principal); D50.9 Iron deficiency anemia, unspecified; K52.9 Noninfective gastroenteritis and colitis, unspecified; R14.3 Flatulence; K22.70 Barrett's esophagus without dysplasia; R16.0 Hepatomegaly, not elsewhere classified; R93.2 Abnormal findings on diagnostic imaging of liver and biliary tract
CPT/HCPCS: 76705

== ENCOUNTER 2019-01-26 18:24 | Emergency (ER) | payer OTHER ==
[2019-01-26] MEDS ORDERED: HYDROcodone/Acetaminophen 5/325 mg Tablet ONE (19:24)
--- NOTE | 2019-01-26 19:28 | RAD ---
LEFT ANKLE THREE VIEWS: 01/26/19 HISTORY: Left ankle injury. FINDINGS: Ankle mortise and talar dome are intact. Soft tissue swelling of the lateral malleolus. No acute frac ture or dislocation. IMPRESSION: No acute osseous abnormalities are demonstrated. POS: [facility]
--- NOTE | 2019-01-26 19:29 | RAD ---
LEFT HIP TWO VIEWS: 01/26/19 HISTORY: Fall. Left hip pain. FINDINGS: Mild joint space narrowing, osteophytosis, and subchondral sclerosis. Ring artifact accounts for scle rotic density across the femoral neck on the frontal view. No acute fracture, dislocation or aggressi ve osseous erosions. Calcification over the arterial structures. Phleboliths and hemostasis clips ove rlie the pelvis. IMPRESSION: Prominent osteoarthritic changes left hip. Atherosclerosis. POS: [facility]
--- NOTE | 2019-01-26 19:34 | RAD ---
LEFT FOOT THREE VIEWS: 01/26/19 HISTORY: Left foot injury. FINDINGS: Lisfranc joint alignment is anatomic. Plantar arch is maintained. Moderate osteophytosis throughout t he foot. Plantar enthesophyte at the inferior aspect of the calcaneus. IMPRESSION: Mild degenerative changes. No acute osseous abnormalities are demonstrated. Plantar heel spur. POS: [facility]
== END 2019-01-26 19:48 | disposition home or self-care (01) ==
LOC: ERS 18:24
DX: S93.402A Sprain of unspecified ligament of left ankle, initial encounter (principal); E11.9 Type 2 diabetes mellitus without complications; I10 Essential (primary) hypertension; J45.909 Unspecified asthma, uncomplicated; F41.9 Anxiety disorder, unspecified; F17.210 Nicotine dependence, cigarettes, uncomplicated; Z79.899 Other long term (current) drug therapy; Z79.51 Long term (current) use of inhaled steroids; Z79.4 Long term (current) use of insulin; X50.9XXA Other and unspecified overexertion or strenuous movements or postures, initial encounter
CPT/HCPCS: 36415; 82728

== ENCOUNTER 2019-02-15 11:40 | Day surgery (SDC) | payer OTHER ==
[2019-02-15] MEDS: Ferumoxytol (ERSD) 510 MG in Sodium Chloride 0.9% 250 ML 150 ML IVPB SCH ×2 (11:51→12:02)
[2019-02-15 12:08] VITALS: BP 132/80; TEMP 99
== END 2019-02-15 12:38 | disposition home or self-care (01) ==
LOC: ONC/OP 11:40
PROVIDERS: ATTEND Internal Medicine Hematology & Oncology
DX: D53.8 Other specified nutritional anemias (principal); Z91.048 Other nonmedicinal substance allergy status
CPT/HCPCS: 96365; J7050; Q0139

== ENCOUNTER 2019-02-21 13:41 | Emergency (ER) | payer OTHER ==
[2019-02-21 14:47] LABS: #Lymphocytes 0.9 thou/uL (1.20-3.40); #Monocytes 0.2 thou/uL (0.11-0.59); #Neutrophils 3.9 thou/uL (1.40-6.50); %Basophils 0.5 % (0.0-1.0); %Eosinophils 0.9 % (0.0-10.0); %Lymphocytes 18.2 % (21.0-51.0); %Monocytes 4.4 % (0.0-10.0); Hemoglobin 13.2 g/dL (12.0-16.0); Mean Corpuscular HGB CONC 33.2 g/dL (32.0-36.0); Mean Corpuscular Hemoglobin 33.2 pg (27.0-31.0); Platelet Count 187 thou/uL (130-400); RBC Distribution Width 14.8 % (11.5-14.5); Red Blood Cell (RBC) Count 3.98 mill/uL (4.20-5.40); White Blood Cell (WBC) Count 5.1 thou/uL (4.8-10.8)
--- NOTE | 2019-02-21 14:54 | RAD ---
EXAM: Two views chest PROVIDED CLINICAL HISTORY: Lower back pain. COMPARISON: 01/11/2018 FINDINGS: Cardiac silhouette and pulmonary vasculature are within normal limits. The lungs are clear. The osse ous structures have a normal appearance. IMPRESSION: No acute cardiopulmonary process.
[2019-02-21 15:00] LABS: ALT (SGPT) 7 U/L (8-55); AST (SGOT) 13 U/L (5-34); Albumin 3.9 g/dL (3.4-4.8); Alkaline Phosphatase 73 U/L (40-150); Anion Gap 13 mmol/L (10-20); BUN (Urea Nitrogen) 9 mg/dL (9.8-20.1); Bilirubin, Total 0.3 mg/dL (0.2-1.2); CK (CPK) 55 U/L (29-168); Calc. Creatinine Clearance 0 mL/min (70-130); Calcium 9.8 mg/dL (7.8-10.44); Carbon Dioxide 28 mmol/L (23-31); Chloride 100 mmol/L (98-107); Estimated GFR-MDRD 90; Globulin 3.5 g/dL (2.4-3.5); Glucose 104 mg/dL (80-115); Potassium 4.5 mmol/L (3.5-5.1); Protein, Total 7.4 g/dL (6.0-8.3); Sodium 136 mmol/L (136-145)
--- NOTE | 2019-02-21 15:22 | CT ---
CT lumbar spine without IV contrast INDICATION: 63-year-old female with lumbar back pain and sciatic pain Comparison: None FINDINGS: Bones: No acute fracture evident. Spinal alignment within normal limits. Disc spaces: There is advanced disc degenerative disease at L5-S1 with vacuum disc phenomenon. There is mild multilevel disc degenerative disease of the lumbar spine. Osseous central canal and neural foramina: There is mild osseous neural foraminal narrowing at L4-5. There is moderate to severe left osseous neural foraminal narrowing at L5-S1. There is suggestion of at least [id number] central canal narrowing at L2-3. There is suggestion of mild central can al narrowing at L3-4 and L4-5. Retroperitoneum and paravertebral soft tissues: There are scattered vascular calcifications. IMPRESSION: 1. No acute fracture or subluxation. 2. Moderate spondylosis of the lumbar spine with findings suggesting central canal and neural foramin al narrowing. Nonemergent MR the lumbar spine may be helpful for improved characterization.
[2019-02-21] MEDS ORDERED: HYDROcodone/Acetaminophen 5/325 mg Tablet ONE (15:23)
[2019-02-21] MEDS ORDERED: Ketorolac Tromethamine 60 MG/2 ML VIAL ONE (15:23)
--- NOTE | 2019-02-21 15:23 | CT ---
EXAM: CT Pelvis WO Con PROVIDED CLINICAL HISTORY: Low back and pelvic pain. Patient states pain is different than typical sciatic type pain. COMPARISON: None available. FINDINGS: There is bilateral hip osteoarthritis. Degenerative changes are seen in the lower lumbar spine and in volving the pubic symphysis. Small sclerotic density most compatible with a bone island is seen in the posterior left acetabulum. No additional lytic or sclerotic osseous lesions are seen. Vascular calcifications are seen in the visualized infrarenal abdominal aorta and involving the iliac arteries. Postsurgical changes related to hysterectomy are noted. Multiple phleboliths are seen in the pelvis. There are postsurgical changes seen involving the ascending colon. No free fluid or fluid collection is seen in the abdomen or pelvis. There is no lymphadenopathy. Small fat-containing umbilical hernia is noted. The pelvic soft tissues demonstrate a grossly normal appearance. IMPRESSION: 1. Mild bilateral hip osteoarthritis with degenerative changes in lower lumbar spine. No acute osseou s abnormality is seen. 2. Vascular calcifications. 3. Hysterectomy.
== END 2019-02-21 17:33 | disposition home or self-care (01) ==
LOC: ERS 13:41
DX: M51.16 Intervertebral disc disorders with radiculopathy, lumbar region (principal); E11.9 Type 2 diabetes mellitus without complications; I10 Essential (primary) hypertension; J45.909 Unspecified asthma, uncomplicated; F41.9 Anxiety disorder, unspecified; F43.10 Post-traumatic stress disorder, unspecified; F17.210 Nicotine dependence, cigarettes, uncomplicated; Z79.899 Other long term (current) drug therapy; Z79.4 Long term (current) use of insulin
CPT/HCPCS: 36415; 71046; 72131; 72192; 80053; 82550; 83605; 84484; 85025; 87804; 93005; 94640; 94760; 96372; J1885; J7620

== ENCOUNTER 2019-02-22 11:25 | Day surgery (SDC) | payer OTHER ==
[2019-02-22] MEDS ORDERED: Sodium Chloride 0.9% 20 ML ONE (11:38)
[2019-02-22] MEDS ORDERED: Ferumoxytol (NON ERSD) 510 MG in Sodium Chloride 0.9% 150 ML IVPB SCH (11:45)
[2019-02-22 13:02] VITALS: BP 138/63; TEMP 99
== END 2019-02-22 13:02 | disposition home or self-care (01) ==
LOC: ONC/OP 11:25
PROVIDERS: ATTEND Internal Medicine Hematology & Oncology
DX: D53.8 Other specified nutritional anemias (principal)
CPT/HCPCS: 96365; J3490; Q0138

== ENCOUNTER 2019-03-01 10:48 | Day surgery (SDC) | payer OTHER ==
[2019-03-01] MEDS ORDERED: Ferumoxytol (ERSD) 510 MG in Sodium Chloride 0.9% 250 ML 150 ML IVPB SCH (11:15)
[2019-03-01 11:19] VITALS: BP 177/80; TEMP 97.7
== END 2019-03-01 12:39 | disposition home or self-care (01) ==
LOC: ONC/OP 10:48
PROVIDERS: ATTEND Nurse Practitioner Acute Care
DX: D53.8 Other specified nutritional anemias (principal); Z91.048 Other nonmedicinal substance allergy status
CPT/HCPCS: 96365; J7050; Q0139

== ENCOUNTER 2019-05-06 06:49 | Day surgery (SDC) | payer OTHER ==
[2019-05-04 15:38] VITALS: BMI 43.9
[2019-05-06] MEDS ORDERED: HYDROcodone/Acetaminophen 5/325 mg Tablet ONE ×2 (09:01→09:31)
--- NOTE | 2019-05-06 09:50 | CT ---
Lumbar spine CT scan post myelogram contrast: HISTORY: Lumbar spondylosis with myelopathy. Examination was performed following a lumbar myelogram. FINDINGS: There are some linear and interstitial parenchymal changes in the left lower lobe with minimal bronch iectasis evidence for chronic lung disease. There are generalized disc desiccation changes and ligament and facet hypertrophic changes. Generalized disc osteophytosis at T11-T12 and T12-L1 and L1-L2. At L2-L3 there is severe central spinal canal stenosis from diffuse disc osteophytosis and ligament a nd facet hypertrophic change. Moderate foraminal stenosis bilaterally. At L3-L4 there is moderate to severe central canal and lateral recess stenosis with moderate foramina l stenosis. At L4-L5 very severe central canal and lateral recess stenosis and moderate bilateral foraminal steno sis. At L5-S1 diffuse disc osteophytosis without significant central fecal sac compression with moderate t o severe bilateral foraminal stenosis. IMPRESSION: Multilevel up to severe canal, lateral recess, and foraminal stenosis, most marked at L2-L3.
--- NOTE | 2019-05-06 09:58 | CT ---
Exam: Cervical spine CT scan with post myelographic contrast: FINDINGS: Postlaminectomy at C4-C7 with with dorsal internal fixation screws and farooq stabilization from C4 thro ugh C7. Extensive generalized disc osteophytosis. C2-C3: Unremarkable C3-C4: Moderate bilateral recess stenosis and mild bilateral foraminal stenosis. C4-C5: Mild lateral recess stenosis C5-C6: Mild left ventral lateral recess stenosis with moderate to severe bilateral foraminal stenosis . C6-C7: Mild bilateral lateral recess stenosis and moderate to severe bilateral foraminal stenosis. C7-T1: Moderate central canal stenosis with mild bilateral foraminal stenosis. IMPRESSION: Laminectomy and dorsal internal fixation screw and farooq stabilization from C4 through C5. Stenotic jeremias nges as above.
--- NOTE | 2019-05-06 10:11 | RAD ---
Myelogram, 2 more regions: Cervical myelogram: Lumbar myelogram: Fluoroscopy time 4.6 minutes with 13 portable fluoroscopic spot images. Dose: 4091.7 uGym^2 PROCEDURE: Informed consent was obtained. Risks discussed with the patient included that of infection, contrast allergy, worsening neurologic symptoms including pain, numbness, tingling, and weakness, headache. A 22-gauge 5 inch needle was introduced into the thecal sac at L1-L2. Colorless spinal fluid was obta ined. The patient was injected with approximately 14 cc of 300 M contrast. Spot films were obtained of the lumbar spine initially semiupright as well as upright. Following this the patient was placed in a head down position and contrast media collected in the cervical spine with AP and crosstable lateral views of the cervical spine be performed. FINDINGS: Lumbar myelogram: Marked ventral and dorsal extradural changes are noted at L2-L3 resulting in severe stenosis. Moderat e dorsal and ventral extradural changes are noted at L3-L4 resulting in moderate stenosis. Moderate to severe lateral recess stenosis noted at L4-L5 with incomplete filling of the right and left latera l nerve roots at this level. Unremarkable L5-S1 level. Mild ventral extradural changes at L1-L2 and T12-L1. IMPRESSION: Multilevel variable severity stenosis with dorsal and ventral extradural defects, most marked at L2-L 3. Cervical myelogram: Following the lumbar myelogram, the patient was placed in a head down position and contrast media col lected in the cervical spine subarachnoid space. Extensive laminectomy and dorsal fusion changes noted at C4-C7. Contrast media density is somewhat suboptimal for good plain film evaluation. No evid ence for overt stenosis. IMPRESSION: Laminectomy and dorsal fusion changes at C4-C7. No significant stenosis.
[2019-05-06 10:30] VITALS: BP 141/85; TEMP 97.6
[2019-05-06] MEDS ORDERED: Iopamidol-M 300 61% 15 ML VIAL ONE (12:30)
== END 2019-05-06 10:20 | disposition home or self-care (01) ==
LOC: RAD 06:49
PROVIDERS: ATTEND Neurological Surgery
PROC: B01B1ZZ Fluoroscopy of Spinal Cord using Low Osmolar Contrast (ICD-10-PCS; principal; 2019-05-06)
DX: M48.061 Spinal stenosis, lumbar region without neurogenic claudication (principal); M48.02 Spinal stenosis, cervical region; M48.03 Spinal stenosis, cervicothoracic region; M48.07 Spinal stenosis, lumbosacral region; M47.16 Other spondylosis with myelopathy, lumbar region; Z91.048 Other nonmedicinal substance allergy status; Z79.51 Long term (current) use of inhaled steroids; Z79.4 Long term (current) use of insulin; Z79.899 Other long term (current) drug therapy
CPT/HCPCS: 62305; 72126; 72132

== ENCOUNTER 2019-05-27 10:54 | Day surgery (SDC) | payer OTHER ==
[~2019-05-27 10:54] MED LIST: Ferumoxytol (NON ERSD) 510 MG in Sodium Chloride 0.9% 250 ML 150 ML IVPB SCH
[2019-05-27 11:48] VITALS: BP 125/67; TEMP 98.8
== END 2019-05-27 12:53 | disposition home or self-care (01) ==
LOC: ONC/OP 10:54
PROVIDERS: ATTEND Nurse Practitioner Acute Care
DX: D53.8 Other specified nutritional anemias (principal)
CPT/HCPCS: 96365; J7050; Q0138

== ENCOUNTER 2019-06-17 10:15 | Outpatient (CLI) | payer OTHER ==
--- NOTE | 2019-06-17 11:58 | ULT ---
Sonogram abdomen complete hepatitis. Cirrhosis. FINDINGS: Gallbladder surgically absent. Common duct is 1.0 cm. Liver heterogeneous without focal mas s or intrahepatic biliary dilatation. It measures up to 20.2 cm. Spleen is 14.3 cm without focal abnormality. Cysts arise from the cortex of each kidney, measuring up to 8.0 cm on the right with a septation and up to 3.0 cm on the left. No hydronephrosis. Visualized portions of the abdominal aorta, IVC, and pancreas have a normal sonographic appearance. IMPRESSION: Status post cholecystectomy. No evidence of acute biliary obstruction. Hepatosplenomegaly. Bilateral renal cysts.
== END 2019-06-17 10:16 | disposition home or self-care (01) ==
LOC: BICULT 10:15
PROVIDERS: ATTEND Internal Medicine
DX: K75.4 Autoimmune hepatitis (principal); K22.70 Barrett's esophagus without dysplasia; K21.9 Gastro-esophageal reflux disease without esophagitis; Z90.49 Acquired absence of other specified parts of digestive tract; R16.0 Hepatomegaly, not elsewhere classified; N28.1 Cyst of kidney, acquired
CPT/HCPCS: 76700

== ENCOUNTER 2019-07-14 10:05 | Outpatient (CLI) | payer OTHER ==
--- NOTE | 2019-07-14 10:28 | RAD ---
XR Chest Pa Lat @ P[facility] HISTORY: Dyspnea COMPARISON: 02/21/2019 exam. FINDINGS: Heart size is borderline. Some mild chronic interstitial lung changes are seen. Postoperati ve changes of the cervical spine are present. IMPRESSION: Chronic appearing lung change. Stable chest.
== END 2019-07-14 10:06 | disposition home or self-care (01) ==
LOC: RAD 10:05
PROVIDERS: ATTEND Internal Medicine Critical Care Medicine
DX: R06.00 Dyspnea, unspecified (principal); R91.8 Other nonspecific abnormal finding of lung field
CPT/HCPCS: 71046

== ENCOUNTER 2019-08-08 06:57 | Inpatient (IN) | payer OTHER ==
[2019-08-08 08:23] LABS: #Eosinphils 0.1 thou/uL (0.0-0.7); #Monocytes 0.3 thou/uL (0.11-0.59); #Neutrophils 4.4 thou/uL (1.40-6.50); %Basophils 0.4 % (0.0-1.0); %Eosinophils 1.4 % (0.0-10.0); %Lymphocytes 17.9 % (21.0-51.0); %Monocytes 5.5 % (0.0-10.0); %Neutrophils 74.7 % (42.0-75.0); Hemoglobin 13.1 g/dL (12.0-16.0); Mean Corpuscular HGB CONC 34.4 g/dL (32.0-36.0); Mean Corpuscular Hemoglobin 33.5 pg (27.0-31.0); Mean Corpuscular Volume 97.6 fL (78.0-98.0); Mean Platelet Volume 7.1 fL (7.4-10.4); Platelet Count 171 thou/uL (130-400); RBC Distribution Width 14.7 % (11.5-14.5); Red Blood Cell (RBC) Count 3.91 mill/uL (4.20-5.40); White Blood Cell (WBC) Count 5.8 thou/uL (4.8-10.8)
[2019-08-08 08:41] LABS: Anion Gap 12 mmol/L (10-20); BUN (Urea Nitrogen) 10 mg/dL (9.8-20.1); Calc. Creatinine Clearance 134 mL/min (70-130); Calcium 9.6 mg/dL (7.8-10.44); Carbon Dioxide 25 mmol/L (23-31); Chloride 104 mmol/L (98-107); Estimated GFR-MDRD 84; Glucose 136 mg/dL (80-115); Potassium 3.8 mmol/L (3.5-5.1); Sodium 137 mmol/L (136-145)
[2019-08-08] MEDS ORDERED: Sodium Chloride 0.9% 10 ML ONE (08:41)
[2019-08-08] MEDS ORDERED: Fentanyl 100 MCG/2 ML VIAL ONE ×3 (08:59→12:09)
[2019-08-08] MEDS ORDERED: HYDROmorphone 2 MG/ML VIAL SLOW IVP PRN (10:45)
[2019-08-08] MEDS ORDERED: Promethazine HCl 25 MG/ML VIAL SLOW IVP PRN (10:45)
[2019-08-08] MEDS ORDERED: Promethazine HCl 25 MG/ML VIAL IM PRN ×2 (10:45→14:01)
[2019-08-08] MEDS ORDERED: Ondansetron HCl/PF 4 MG/2 ML Vial IVP PRN (10:45)
[2019-08-08] MEDS ORDERED: HYDROmorphone 2 MG/ML VIAL ONE (11:11)
[2019-08-08] MEDS ORDERED: Lidocaine 1% PF 5 ML VIAL ONE (12:56)
[2019-08-08] MEDS ORDERED: Dexamethasone 20 MG/5 ML VIAL ONE (12:56)
[2019-08-08] MEDS ORDERED: Ondansetron PF 4 MG/2 ML Vial ONE (12:56)
[2019-08-08] MEDS ORDERED: PROPOFOL 200 MG/20 ML VIAL ONE (12:56)
[2019-08-08] MEDS ORDERED: Rocuronium Bromide 10 MG/ML (10ML VIAL) ONE (12:56)
[2019-08-08] MEDS ORDERED: Labetalol HCl 100 MG/20 ML VIAL ONE (12:56)
[2019-08-08] MEDS ORDERED: Glycopyrrolate 0.2 MG/ML 5 ML SYRINGE ONE (12:56)
[2019-08-08] MEDS ORDERED: Temazepam 15 MG CAP PO PRN (13:31)
[2019-08-08] MEDS ORDERED: Ondansetron ODT 4 MG TAB PO PRN (13:31)
[2019-08-08] MEDS ORDERED: traMADol HCl 50 MG TAB PO PRN ×3 (13:32→14:01)
[2019-08-08 13:34] VITALS: BMI 47.0
[2019-08-08] MEDS ORDERED: Acetaminophen 500 MG TAB PO PRN (13:35)
[2019-08-08] MEDS ORDERED: Loratadine 10 MG TAB PO PRN ×2 (13:36→18:00)
[2019-08-08] MEDS ORDERED: Albuterol Sulfate 2.5 mg/3 ml Neb NEB PRN ×2 (13:45→17:48)
[2019-08-08] MEDS ORDERED: Promethazine HCl 12.5 MG SUPP PR PRN (14:01)
[2019-08-08] MEDS ORDERED: Morphine 4 MG/ML VIAL SLOW IVP PRN (14:01)
[2019-08-08] MEDS ORDERED: diphenhydrAMINE 25 MG CAP PO PRN (14:01)
[2019-08-08] MEDS ORDERED: Mag-Al 1200 mg/1200 mg/30 ML UDCUP PO PRN (14:01)
[2019-08-08] MEDS ORDERED: Promethazine 25 MG TAB PO PRN (14:01)
[2019-08-08] MEDS ORDERED: diphenhydrAMINE 50 MG/ML VIAL IVP PRN (14:01)
[2019-08-08] MEDS ORDERED: HYDROcodone/Acetaminophen 10/325 mg Tablet PO PRN (14:01)
[2019-08-08] MEDS ORDERED: Ondansetron PF 4 MG/2 ML Vial IM PRN (14:01)
[2019-08-08] MEDS: Sodium Chloride 0.9% 1,000 ML IV SCH (14:30)
[2019-08-08] MEDS: HYDROcodone/Acetaminophen 10/325 mg Tablet PO PRN ×2 (15:26→20:19)
--- NOTE | 2019-08-08 16:23 | OP ---
DATE OF PROCEDURE: 08/08/2019 INTEGRITY MANAGER: Marco A Salinas MD PROCEDURES PERFORMED: L2-L3 laminectomy, posterolateral arthrodesis, pedicle screw instrumentation right L2 and right L3, demineralized bone matrix, and local morselized autograft. DESCRIPTION OF PROCEDURE: The patient was brought to the operating room and intubated. She was rolled in a prone position on gel-filled chest rolls. An incision was made exposing L2 and L3 and the level was confirmed by x-ray. We performed complete L3 and inferior L2 laminectomies, completely decompressing the neural elements. We then placed pedicle screws at right L2 and right L3 using lateral fluoroscopic guidance. The bone was found to be quite soft and vascular. The farooq was secured between the screws, connected by nuts, which were final tightened. The wound was extensively irrigated. MAC hemostasis was secured. A combination of demineralized bone matrix, local morselized autograft was laid over the lamina and posterolateral surfaces for the purpose of arthrodesis. Vancomycin powder was applied, and the wound was then closed in anatomic layers. Job ID: [id number]
[2019-08-08] MEDS: CEFAZOLIN 2 GM in Premix Bag 1 BAG IVPB SCH (17:32)
[2019-08-08] MEDS: tiZANidine HCl 4 MG TAB PO PRN ×2 (17:39→23:09)
[2019-08-08] MEDS ORDERED: Dextrose 5% in Water 1,000 ML IV PRN (17:53)
[2019-08-08] MEDS ORDERED: Dextrose 50% Abboject 50 ML SYRINGE SLOW IVP PRN (17:53)
[2019-08-08] MEDS ORDERED: HumaLOG 300 UNITS/3 ML VIAL SC PRN (17:53)
--- NOTE | 2019-08-08 18:20 | PDOC.EVN ---
Event Note - Event Note Event Note: Went to patient's room, but she was outside smoking. Will follow up tomorrow. Discussed with nurse. Accuchecks ordered AC and HS with SSI.
[2019-08-08] MEDS: Ipratropium Bromide 2.5 ml Neb NEB SCH (19:01)
[2019-08-08] MEDS: Mometasone/Formoterol 120 PUFF INHALER INH SCH ×2 (19:07)
[2019-08-08] MEDS: Fluticasone Propionate Nasal Spray 16 gm Bottle NASAL SCH (20:19)
[2019-08-08] MEDS: DULoxetine 30 MG CAP PO SCH (20:19)
[2019-08-08] MEDS ORDERED: Non-Formulary Item 1 EACH (Fluticasone Propionate [Flonase Allergy Relief] 1 SPRAY) EA NARE SCH (21:00)
[2019-08-08] MEDS ORDERED: DULoxetine 60 MG CAP PO SCH (21:00)
[2019-08-09] MEDS: Ipratropium Bromide 2.5 ml Neb NEB SCH ×2 (00:43→06:43)
[2019-08-09] MEDS: CEFAZOLIN 2 GM in Premix Bag 1 BAG IVPB SCH ×3 (03:03→17:40)
[2019-08-09] MEDS: Morphine 2 MG/ML SYRINGE SLOW IVP PRN ×2 (03:05→17:46)
[2019-08-09] MEDS: HYDROcodone/Acetaminophen 10/325 mg Tablet PO PRN ×2 (04:20→09:39)
[2019-08-09] MEDS: Sodium Chloride 0.9% 1,000 ML IV SCH ×2 (04:25→15:51)
--- NOTE | 2019-08-09 05:57 | PRG ---
DATE OF SERVICE: 08/09/2019 SUBJECTIVE: Patient is a 63-year-old female, status post L2-L3 decompression and fusion. Following the surgery, she was transitioned to the Med/Surg floor. She is currently postoperative day #1. She reports her pain has been well-controlled with p.o. medications, she is tolerating regular diet. She is voiding appropriately. She is ambulating short distances back and forth to the bathroom with her walker. She did have a PADMINI drain placed intraoperatively and had 150 mL out overnight. OBJECTIVE: On exam this morning, the patient is awake, alert, in no acute distress. She has free active range of motion of all extremities. No focal motor weakness. Her incision is clean, dry, and intact. There is some dark red blood in the PADMINI bulb. PLAN: We will continue to monitor PADMINI output. I anticipate that it maybe able to be removed in the next day or two. We will continue to mobilize appropriately and I anticipate back to assisted living in the next few days. Job ID: [id number]
[2019-08-09] MEDS: Mometasone/Formoterol 120 PUFF INHALER INH SCH ×4 (06:37→19:16)
[2019-08-09] MEDS: Pregabalin 50 MG CAP PO SCH (08:31)
[2019-08-09] MEDS: DULoxetine 30 MG CAP PO SCH ×2 (08:33→19:52)
[2019-08-09] MEDS: azaTHIOprine 50 MG TAB PO SCH (08:33)
[2019-08-09] MEDS: Lisinopril 20 MG TAB PO SCH (08:34)
[2019-08-09] MEDS: Furosemide 20 MG TAB PO SCH (08:34)
[2019-08-09] MEDS: Insulin Glargine 25 UNITS in Pre-Filled Syringe 1 EACH SC SCH (08:35)
[2019-08-09] MEDS: Fluticasone Propionate Nasal Spray 16 gm Bottle NASAL SCH ×2 (08:36→19:56)
[2019-08-09] MEDS ORDERED: Lisinopril 10 MG TAB PO SCH (09:00)
[2019-08-09] MEDS ORDERED: Non-Formulary Item 1 EACH (Insulin Detemir 100 Units/Ml [Levemir] 25 UNIT) SQ SCH (09:00)
[2019-08-09] MEDS ORDERED: AZATHIOPRINE 100 MG PO SCH (09:00)
[2019-08-09] MEDS ORDERED: Pregabalin 50 MG CAP PO SCH (09:00)
[2019-08-09] MEDS ORDERED: Furosemide 20 MG TAB PO SCH (09:00)
--- NOTE | 2019-08-09 12:01 | PDOC.HOSPP ---
- Subjective Encounter Date: 08/09/19 Encounter Time: 10:00 Subjective: feels better, has back pain mobilizes using her walker - Objective Vital Signs & Weight: Vital Signs (12 hours) Temp Pulse Resp BP BP Pulse Ox 08/09/19 11:38 99.1 F 69 18 148/80 H 94 L 08/09/19 08:34 144/68 H 08/09/19 08:00 98.3 F 71 18 144/68 H 92 L 08/09/19 06:40 71 16 91 L 08/09/19 06:37 71 16 91 L 08/09/19 03:08 98.2 F 68 16 127/66 94 L Weight Weight 240 lb 8 oz I&O: 08/08/19 08/09/19 08/10/19 06:59 06:59 06:59 Intake Total 2565 Output Total 215 Balance 2350 Result Diagrams: 08/08/19 08:15 08/08/19 08:15 Additional Labs: Accuchecks 08/09/19 08/09/19 08/08/19 11:24 05:09 20:58 POC Glucose 132 H 136 H 192 H Hospitalist ROS - Medication Medications: Active Medications Generic Name Dose Route Start Last Admin Trade Name Freq PRN Reason Stop Dose Admin Hydrocodone Bitart/Acetaminophen 2 tab 08/08/19 14:01 08/09/19 09:39 [place] 10/325 PO 2 tab Q4H PRN Administration PAIN (4-6) Albuterol/Ipratropium 3 ml 08/08/19 19:00 08/09/19 06:40 Duoneb NEB 3 ml F2OC-IP MONICA Administration Azathioprine 100 mg 08/09/19 09:00 08/09/19 08:33 Imuran PO 100 mg DAILY MONICA Administration Duloxetine HCl 30 mg 08/08/19 21:00 08/09/19 08:33 Cymbalta PO 30 mg BID MONICA Administration Fluticasone Propionate 0 gm 08/08/19 21:00 08/09/19 08:36 Flonase Nasal [place] NASAL 1 spr BID MONICA Administration Furosemide 20 mg 08/09/19 09:00 08/09/19 08:34 Lasix PO 20 mg DAILY MONICA Administration Insulin Glargine 25 units/ 0.25 mls @ 0 mls/hr 08/09/19 09:00 08/09/19 08:35 Miscellaneous Medication SC 0.25 mls QAM MONICA Administration Sodium Chloride 1,000 mls @ 75 mls/hr 08/08/19 14:01 08/09/19 04:25 Normal Saline 0.9% IV Not Given .[id number] MONICA Cefazolin Sodium/Dextrose 2 gm 50 mls @ 100 mls/hr 08/08/19 18:00 08/09/19 09 :38 / Device IVPB 50 mls Q8H MONICA Administration Insulin Human Lispro 0 units 08/08/19 17:53 08/08/19 23:09 Humalog SC 2 units .MILD SLIDING SCALE PRN Administration Mild Correctional Scale Lisinopril 20 mg 08/09/19 09:00 08/09/19 08:34 Zestril PO 20 mg DAILY MONICA Administration Mometasone Furoate/Formoterol Fumar 2 puff 08/08/19 18:30 08/09/19 06:37 Dulera 200 Mcg/5 Mcg Inhaler INH 2 puff BID-RT MONICA Administration Mometasone Furoate/Formoterol Fumar 2 puff 08/08/19 18:30 08/09/19 06:42 Dulera 200 Mcg/5 Mcg Inhaler INH Not Given BID-RT MONICA Morphine Sulfate 2 mg 08/08/19 14:03 08/09/19 03:05 Morphine SLOW IVP 2 mg Q1H PRN Administration MODERATE BREAKTHROUGH PAIN Pantoprazole Sodium 40 mg 08/08/19 21:00 08/09/19 08:34 Protonix PO 40 mg BID MONICA Administration Pregabalin 100 mg 08/09/19 09:00 08/09/19 08:31 Lyrica PO 100 mg DAILY MONICA Administration Sodium Chloride 10 ml 08/08/19 21:00 08/09/19 09:38 Flush - Normal Saline IVF 10 ml Q12HR MONICA Administration Tizanidine HCl 4 mg 08/08/19 14:01 08/08/19 23:09 Zanaflex PO 4 mg Q6H PRN Administration MUSCLE SPASM - Exam General Appearance: NAD, awake alert Eye: PERRL, anicteric sclera ENT: no oropharyngeal lesions, dry oral mucosa Neck: supple, no JVD Heart: RRR, no murmur Respiratory: no wheezes, no rales, rhonchi Gastrointestinal: soft, non-tender, non-distended, normal bowel sounds Extremities: no cyanosis, 1+ LE edema Skin: normal turgor, no lesions Neurological: cranial nerve grossly intact, no focal deficits Psychiatric: normal affect, A&O x 3 Hosp A/P (1) COPD (chronic obstructive pulmonary disease) Status: Chronic Qualifiers: COPD type: chronic bronchitis Chronic bronchitis type: simple Qualified Code(s): J41.0 - Simple chronic bronchitis (2) s/p lumbar lamincectomy Status: Acute Plan: L2-3, 08/08/2019 (3) Hepatitis C Code(s): B19.20 - UNSPECIFIED VIRAL HEPATITIS C WITHOUT HEPATIC COMA Status: Chronic Qualifiers: Viral hepatitis chronicity: chronic Hepatic coma status: without hepatic coma Qualified Code(s): B18.2 - Chronic viral hepatitis C (4) Normocytic anemia Code(s): D64.9 - ANEMIA, UNSPECIFIED Status: Chronic (5) SHEBA (obstructive sleep apnea) Code(s): G47.33 - OBSTRUCTIVE SLEEP APNEA (ADULT) (PEDIATRIC) Status: Chronic (6) Autoimmune hepatitis Code(s): K75.4 - AUTOIMMUNE HEPATITIS Status: Chronic (7) Diabetes mellitus type 2 in obese Code(s): E11.9 - TYPE 2 DIABETES MELLITUS WITHOUT COMPLICATIONS; E66.9 - OBESITY , UNSPECIFIED Status: Chronic (8) GERD (gastroesophageal reflux disease) Code(s): K21.9 - GASTRO-ESOPHAGEAL REFLUX DISEASE WITHOUT ESOPHAGITIS Status: Chronic Qualifiers: Esophagitis presence: esophagitis presence not specified Qualified Code(s) : K21.9 - Gastro-esophageal reflux disease without esophagitis (9) HTN (hypertension) Code(s): I10 - ESSENTIAL (PRIMARY) HYPERTENSION Status: Chronic Qualifiers: Hypertension type: essential hypertension Qualified Code(s): I10 - Essential (primary) hypertension (10) Tobacco abuse Code(s): Z72.0 - TOBACCO USE Status: Chronic - Plan continue duonebs, counselled to quit smoking on imuran for AI hepatitis, lantus, lisinopril, lyrica, dulera, cymbalta, lasix , protonix. morphine, tizanidine, ultram prn for pain dc plan likely in am once her drain is removed hemostable
[2019-08-09] MEDS: tiZANidine HCl 4 MG TAB PO PRN ×2 (13:48→19:56)
[2019-08-10] MEDS: CEFAZOLIN 2 GM in Premix Bag 1 BAG IVPB SCH (02:53)
[2019-08-10] MEDS: HYDROcodone/Acetaminophen 10/325 mg Tablet PO PRN ×3 (03:52→15:50)
[2019-08-10] MEDS: tiZANidine HCl 4 MG TAB PO PRN ×2 (03:53→14:52)
[2019-08-10] MEDS: Mometasone/Formoterol 120 PUFF INHALER INH SCH (07:09)
--- NOTE | 2019-08-10 07:21 | PRG ---
DATE OF SERVICE: 08/10/2019 SUBJECTIVE: The patient is a 63-year-old female, who is postoperative day #2, status post L2-L3 decompression and fusion. Overnight, her PADMINI drain output continued to trend downward with 50 mL out overnight. The patient reports she has been slow to mobilize and she is requiring assistance for getting out of bed. She is requesting possible admission to the retirement unit, which is attached to her assisted living facility in [place]. OBJECTIVE: On exam this morning, the patient is awake, alert, in no acute distress. She has free active range of motion of all extremities. No focal motor weakness. Incision is clean, dry, and intact. There is a small amount of serosanguineous fluid in the PADMINI bulb. PLAN: We will continue to mobilize appropriately with the assistance of PT. I will discuss with Case Management possibility of the patient transitioning from inpatient to retirement facility within her assisted living facility. Job ID: [id number]
[2019-08-10] MEDS: azaTHIOprine 50 MG TAB PO SCH (09:01)
[2019-08-10] MEDS: Pregabalin 50 MG CAP PO SCH (09:01)
[2019-08-10] MEDS: Lisinopril 20 MG TAB PO SCH (09:02)
[2019-08-10] MEDS: Furosemide 20 MG TAB PO SCH (09:07)
[2019-08-10] MEDS: Cephalexin 250 MG CAP PO SCH ×2 (09:07→14:40)
[2019-08-10] MEDS: DULoxetine 30 MG CAP PO SCH (09:07)
[2019-08-10] MEDS: Fluticasone Propionate Nasal Spray 16 gm Bottle NASAL SCH (09:08)
[2019-08-10] MEDS: Insulin Glargine 25 UNITS in Pre-Filled Syringe 1 EACH SC SCH (09:15)
[2019-08-10] MEDS: Sodium Chloride 0.9% 1,000 ML IV SCH (11:29)
[2019-08-10 16:11] VITALS: BP 130/88; TEMP 98.5
--- NOTE | 2019-08-11 15:09 | DIS ---
DATE OF ADMISSION: 08/08/2019 DATE OF DISCHARGE: 08/10/2019 HOSPITAL COURSE: The patient is a 63-year-old female, who was recently evaluated in our office for progressive back and leg pain, who underwent L2-L3 decompression and fusion for lumbar stenosis. Following the surgery, she was transitioned to the Med/Surg floor. She initially had pain control issues, but this improved during her admission course. She was ambulating slowly and short distances with her walker. She was urinating appropriately and tolerating a regular diet. Her PADMINI drain was removed on postoperative day number 2. OBJECTIVE: GENERAL: On exam, the patient appeared comfortable, in no acute distress. EXTREMITIES: She had free active range of motion of all extremities. No focal motor weakness. Her incision remained clean, dry, and intact. The patient was previously living in assisted living. However, considering her recent surgeries and need for continued therapy, we felt it would be best she transition to the long term facility in her facility at discharge. She was transitioned to long term at discharge. I will follow up with the patient in 2 weeks. I have discussed home care precautions. Job ID: [id number]
--- NOTE | 2019-08-11 22:52 | EKG ---
Test Reason : PREOP Blood Pressure : / mmHG Vent. Rate : 065 BPM Atrial Rate : 065 BPM P-R Int : 228 ms QRS Dur : 080 ms QT Int : 416 ms P-R-T Axes : 085 067 056 degrees QTc Int : 432 ms Sinus rhythm with 1st degree A-V block Otherwise normal ECG When compared with ECG of 21-FEB-2019 14:22, Criteria for Septal infarct are no longer Present Confirmed by Chencho BERNSTEIN ([id number]) on 08/11/2019 10:52:05 PM Referred By: LYNNE Confirmed By:Chencho BERNSTEIN
== END 2019-08-10 16:35 | DRG 460 ==
LOC: SURG A 06:57 → EDSTATUS 17:09
PROVIDERS: ADMIT Neurological Surgery; ATTEND Neurological Surgery
PROC: 0SG0071 Fusion of Lumbar Vertebral Joint with Autologous Tissue Substitute, Posterior Approach, Posterior Column, Open Approach (ICD-10-PCS; principal; 2019-08-08)
DX: M48.062 Spinal stenosis, lumbar region with neurogenic claudication (principal); Z68.42 Body mass index [BMI] 45.0-49.9, adult; J41.0 Simple chronic bronchitis; B19.20 Unspecified viral hepatitis C without hepatic coma; D64.9 Anemia, unspecified; G47.33 Obstructive sleep apnea (adult) (pediatric); K75.4 Autoimmune hepatitis; K21.9 Gastro-esophageal reflux disease without esophagitis; E66.9 Obesity, unspecified; F17.200 Nicotine dependence, unspecified, uncomplicated; Z79.899 Other long term (current) drug therapy
CPT/HCPCS: 36415; 36416; 76000; 80048; 85025; 93005; 93010; 94640; C1713; C1768; J0131; J0690; J1100; J1170; J1815; J2001; J2270; J2405; J2704; J3010; J3370; J3490; J7500; J7620

== ENCOUNTER 2019-08-23 14:50 | Outpatient (CLI) | payer OTHER ==
--- NOTE | 2019-08-23 15:06 | RAD ---
TWO VIEWS LUMBAR SPINE: COMPARISON: 01/13/2018. FINDINGS: Five lumbar-type vertebrae. Laminectomy defect at L3. Unilateral right-sided transpedicular screw at L2 and L3. Lumbar spine vertebral body height is obtained. No fracture. Stable degenerative changes of the lumba r spine. Spondylolisthesis: 1.6 mm of retrolisthesis of L2 upon L3 and 1.5 mm of retrolisthesis of L3 upon L4. IMPRESSION: Lumbar fusion as above. Transcribed Date/Time: 08/23/2019 3:09 PM
== END 2019-08-23 14:51 | disposition home or self-care (01) ==
LOC: BICRAD 14:50
PROVIDERS: ATTEND Neurological Surgery
DX: M48.062 Spinal stenosis, lumbar region with neurogenic claudication (principal); Z98.1 Arthrodesis status
CPT/HCPCS: 72100

== ENCOUNTER 2019-10-06 12:48 | Outpatient (CLI) | payer OTHER ==
--- NOTE | 2019-10-06 13:09 | RAD ---
XR Lumbar Spine 2 Or 3 View: 10/06/2019 12:00 AM Postop COMPARISON: Prior exam dated August 23, 2019 FINDINGS: Fracture: None. Alignment: Mild retrolisthesis of L3 on L4 and L2 on L3 is stable. Degenerative Change: Mild spondylosis is stable Soft tissues: Pedicle screws with interconnecting farooq on the right at L2-3 is stable. Laminectomy jeremias nges at L3 is stable. IMPRESSION: Stable postoperative lumbar spine
== END 2019-10-06 12:49 | disposition home or self-care (01) ==
LOC: TBSIIMAG 12:48
PROVIDERS: ATTEND Neurological Surgery
DX: M48.061 Spinal stenosis, lumbar region without neurogenic claudication (principal); Z98.890 Other specified postprocedural states
CPT/HCPCS: 72100

== ENCOUNTER 2019-11-14 10:52 | Day surgery (SDC) | payer MEDICARE, MEDICAID ==
[2019-11-14] MEDS ORDERED: Sodium Chloride 0.9% 20 ML ONE (11:38)
[2019-11-14 12:04] VITALS: BP 141/69; TEMP 98.5
== END 2019-11-14 14:35 | disposition home or self-care (01) ==
LOC: ONC/OP 10:52
PROVIDERS: ATTEND Internal Medicine Hematology & Oncology
DX: D53.8 Other specified nutritional anemias (principal); Z91.048 Other nonmedicinal substance allergy status
CPT/HCPCS: 96365; J7050; Q0138

== ENCOUNTER 2019-12-23 09:25 | Outpatient (CLI) | payer MEDICARE, MEDICAID ==
[2019-12-23] MEDS ORDERED: Magnevist 469MG/ML 20 ML VIAL ONE (11:19)
--- NOTE | 2019-12-23 13:44 | MRI ---
MRI ABDOMEN WITH AND WITHOUT IV CONTRAST: Date: 12/23/2019 HISTORY: Generalized abdominal pain. FINDINGS: The patient is post cholecystectomy. No abnormal biliary or pancreatic ductal dilatation is seen. The pancreas and adrenal glands are normal. The spleen is enlarged, measuring 14.5 cm in length. There a re multiple bilateral renal cysts, the largest is in the anterior aspect of the right kidney measurin g 8.8 cm. There are a couple of tiny cysts in the right lobe of the liver. IMPRESSION: 1. Liver and renal cysts. 2. Splenomegaly. POS: MARNIE
== END 2019-12-23 09:26 | disposition home or self-care (01) ==
LOC: BICMRI 09:25
PROVIDERS: ATTEND Internal Medicine
DX: K75.4 Autoimmune hepatitis (principal); R10.84 Generalized abdominal pain; R14.0 Abdominal distension (gaseous); R19.7 Diarrhea, unspecified; K74.69 Other cirrhosis of liver; N28.1 Cyst of kidney, acquired; K76.89 Other specified diseases of liver; R16.1 Splenomegaly, not elsewhere classified
CPT/HCPCS: 74183; A9579

== ENCOUNTER 2020-04-06 13:56 | Outpatient (CLI) | payer MEDICARE, OTHER ==
--- NOTE | 2020-04-06 15:21 | MMO ---
Bilateral MAMMO Bilat Diag [facility]. CLINICAL HISTORY: Patient is 64 years old and is seen for diagnostic exam and palpable abnormality in the left breast. The patient family history of breast cancer is unknown. The patient has no personal history of cancer. VIEWS: The views performed were: bilateral craniocaudal with tomosynthesis; bilateral mediolateral oblique with tomosynthesis; and bilateral mediolateral with tomosynthesis. FILMS COMPARED: The present examination has been compared to prior imaging studies performed at [facility] on 10/03/2015, 10/04/2015 and 04/06/2020. This study has been interpreted with the assistance of computer-aided detection. MAMMOGRAM FINDINGS: The breasts are almost entirely fat. The nodule at 8:00 left breast is solid on US and should be biopsied. Benign calcifications are noted bilaterally. In the right breast, there are no suspicious masses, calcifications or areas of architectural distortion. IMPRESSION: FINDING IN THE LEFT BREAST IS SUSPICIOUS. AN ULTRASOUND-GUIDED BREAST BIOPSY IS RECOMMENDED. THE RESULTS OF THIS EXAM WERE SENT TO THE PATIENT. ACR BI-RADS Category 4 - Suspicious abnormality - biopsy should be considered MAMMOGRAPHY NOTE: 1. A negative mammogram report should not delay a biopsy if a dominant of clinically suspicious mass is present. 2. Approximately 10% to 15% of breast cancers are not detected by mammography. 3. Adenosis and dense breasts may obscure an underlying neoplasm. Reported by: DIMITRI KELLY MD Electonically Signed: [id number]
--- NOTE | 2020-04-06 15:30 | ULT ---
LEFT BREAST ULTRASOUND: HISTORY: Palpable mass in the retroareolar region of the left breast. CORRELATION: Correlation is made with mammogram of the same date. FINDINGS: Sonographic evaluation of the region of palpable concern at the 8 o'clock position of the retroareola r region of the left breast demonstrates a well-circumscribed nonshadowing 7 x 8 x 5 mm well-circumsc ribed nonshadowing solid mass likely corresponding to the mammographic finding. Also noted is a dila fannie duct in the retroareolar region. The patient also complained of a mass in the left axilla. Sonographic evaluation of the left axilla demonstrates a 6 mm well-circumscribed nodule in the skin. The deep portions of the axilla demonstra te no mass. IMPRESSION: BIRADS category 4 - suspicious abnormality. Recommend ultrasound-guided biopsy of the 7 x 8 x 5 mm s olid nodule at the 8 o'clock position of the left retroareolar breast. Discussed in person with the patient at 3:05 p.m. Discussed over the telephone with Dr. Kaylin tovar at 3:19 p.m. SORAYA GRACE
== END 2020-04-06 13:57 | disposition home or self-care (01) ==
LOC: BICMAMMO 13:56
PROVIDERS: ATTEND Family Medicine
DX: N63.20 Unspecified lump in the left breast, unspecified quadrant (principal); N63.24 Unspecified lump in the left breast, lower inner quadrant
CPT/HCPCS: 76642; 77066; G0279

== ENCOUNTER → 2020-04-12 | Day surgery (SDC) | payer MEDICARE, OTHER ==
--- NOTE | 2020-04-12 18:41 | ULT ---
ULTRASOUND GUIDED BIOPSY LEFT BREAST MASS: 04/12/20 HISTORY: Superficial heterogeneously hypoechoic lesion noted at the 8 o'clock position of the left breast. FINDINGS: Informed consent obtained prior to the procedure. Preprocedural imaging demonstrates a complex heterogeneously hypoechoic lesion at the 8 o'clock posit ion of the left breast measuring approximately 7 x 5 x 10 mm. Skin overlying this lesion was prepped and draped in the normal sterile fashion and anesthetized with 1% buffered lidocaine. With direct sonographic guidance, an 18 gauge spinal needle was advanced into the lesion. Aspiration yields small volume fluid but a significant hypoechoic residual component is present. Thus, three 14 gauge core biopsies were obtained of the lesion. Post biopsy clip was placed and confirmed to be in p bear location on postprocedural mammography. The patient tolerated the procedure well. IMPRESSION: Fine needle aspiration and ultrasound guided 18 gauge core biopsy of complex hypoechoic lesion at the 8 o'clock position of the left breast. POS: [facility]
--- NOTE | 2020-04-13 08:22 | MMO ---
FILMS COMPARED: The present examination has been compared to prior imaging studies performed at [facility] on 10/03/2015, 10/04/2015 and 04/06/2020. MAMMOGRAM FINDINGS: The breasts are almost entirely fat. There is a biopsy clip seen in the left breast. In the right breast, there are no suspicious masses, calcifications or areas of architectural distortion. IMPRESSION: BIOPSY CLIP IN THE LEFT BREAST IS CONFIRMED UTILIZING POST PROCEDURE MAMMOGRAM. Reported by: JULIETA HOLGUIN MD Electonically Signed: [id number]
== END ==
LOC: BICULT 12:35
PROVIDERS: ATTEND Family Medicine
PROC: 0H9U3ZX Drainage of Left Breast, Percutaneous Approach, Diagnostic (ICD-10-PCS; principal; 2020-04-12)
DX: D24.2 Benign neoplasm of left breast (principal); Z91.048 Other nonmedicinal substance allergy status
CPT/HCPCS: 19083; 88305; 88341; 88342

== ENCOUNTER 2020-07-12 14:40 | Day surgery (SDC) | payer MEDICARE, MEDICAID ==
[2020-07-12] MEDS ORDERED: Ferumoxytol (ERSD) 510 MG in Sodium Chloride 0.9% 250 ML 150 ML IVPB SCH (15:00)
[2020-07-12 15:16] VITALS: BP 119/56
== END 2020-07-12 16:01 | disposition home or self-care (01) ==
LOC: ONC/OP 14:40
PROVIDERS: ATTEND Internal Medicine Hematology & Oncology
DX: D53.8 Other specified nutritional anemias (principal); Z91.040 Latex allergy status; Z91.048 Other nonmedicinal substance allergy status
CPT/HCPCS: 96365; J7050; Q0139

== ENCOUNTER 2020-08-07 07:24 | Outpatient (CLI) | payer MEDICARE, MEDICAID, OTHER ==
[2020-08-07 14:13] LABS: #Eosinphils 0.1 thou/uL (0.0-0.7); #Lymphocytes 0.9 thou/uL (1.20-3.40); #Monocytes 0.3 thou/uL (0.11-0.59); %Basophils 0.1 % (0.0-1.0); %Eosinophils 0.7 % (0.0-10.0); %Neutrophils 83.2 % (42.0-75.0); Hemoglobin 13.7 g/dL (12.0-16.0); Mean Corpuscular HGB CONC 33.4 g/dL (32.0-36.0); Mean Corpuscular Volume 98.8 fL (78.0-98.0); Mean Platelet Volume 7.6 fL (7.4-10.4); Platelet Count 198 thou/uL (130-400); Red Blood Cell (RBC) Count 4.15 mill/uL (4.20-5.40); White Blood Cell (WBC) Count 7.2 thou/uL (4.8-10.8)
[2020-08-07 15:01] LABS: Anion Gap 15 mmol/L (10-20); BUN (Urea Nitrogen) 10 mg/dL (9.8-20.1); Calc. Creatinine Clearance 0 mL/min (70-130); Calcium 9.7 mg/dL (7.8-10.44); Carbon Dioxide 26 mmol/L (23-31); Chloride 100 mmol/L (98-107); Estimated GFR-MDRD 78; Glucose 90 mg/dL (80-115); Potassium 4.5 mmol/L (3.5-5.1); Sodium 136 mmol/L (136-145)
--- NOTE | 2020-08-08 07:07 | EKG ---
Test Reason : Blood Pressure : / mmHG Vent. Rate : 073 BPM Atrial Rate : 073 BPM P-R Int : 210 ms QRS Dur : 074 ms QT Int : 408 ms P-R-T Axes : 034 095 075 degrees QTc Int : 449 ms Sinus rhythm with 1st degree A-V block Rightward axis Low voltage QRS Confirmed by DR. Toyin GLASS ([id number]) on 08/08/2020 7:07:27 AM Referred By: DERICK Confirmed By:DR. Toyin GLASS
[2020-08-08 11:54] LABS: SARS-CoV-2 MS2 Positive; SARS-CoV-2 N Gene Negative; SARS-CoV-2 S Gene Negative; SARS-CoV-2 by NAA Not Detected (NotDetected); SARS-CoV-2 orf1ab Negative
== END 2020-08-07 07:25 | disposition home or self-care (01) ==
LOC: LABBT 07:24
PROVIDERS: ATTEND Specialist
DX: Z01.818 Encounter for other preprocedural examination (principal); Z20.828 Contact with and (suspected) exposure to other viral communicable diseases; D05.12 Intraductal carcinoma in situ of left breast
CPT/HCPCS: 80048; 81001; 83036; 85025; 87086; 93005; U0003; 36415; 87635; 93010

== ENCOUNTER → 2020-08-10 | Day surgery (SDC) | payer MEDICARE, MEDICAID ==
[2020-08-08 12:34] VITALS: BMI 37.8
--- NOTE | 2020-08-09 11:05 | HP ---
HISTORY OF PRESENT ILLNESS: Korey Can is a 64-year-old female followed by Dr. Kaylin Wright, [facility] physicians, Dr. Pitts oncology, for hematology reasons and seen by me recently for left breast biopsy, infra-areolar incision on 06/15/2020 for a papular lesion with atypia. Margins were marked and pathology reveals multifocal DCIS with tumor present in 12 of the 17 blocks. Intermediate nuclear grade, no necrosis. Margins involved posterior, focal. Superior and lateral margins close within 1 mm but free. No microcalcifications. The patient has since seen Dr. Pitts for DCIS, left breast, multifocal, ER/SC positive. She is followed by Dr. Pitts for her chronic anemia and leukopenia. It is likely secondary to AZT and iron deficiency anemia with a history of autoimmune hepatitis, on AZT, bilateral pulmonary nodules. The patient lives in [facility]. She is obese 230 pounds, 60 inches. The patient overall is doing well. She has had a discussion with Dr. Pitts regarding her left breast DCIS with positive focally involved margin and close other margins. The patient does not want to undergo radiation therapy and she does not want to have to travel for daily radiation therapy. I have offered arrangements for her to discuss radiation with radiation oncologist, and perhaps some other living arrangements can be made during the time she is having radiation, but she has declined and wants to proceed with mastectomy without reconstruction. Plan is for left simple mastectomy outpatient. She understands the risks and benefits and consents. PAST MEDICAL HISTORY: 1. Diabetes mellitus type 2 since 2010. 2. Hypertension. 3. Arthritis. 4. Asthma. 5. COPD. 6. Anxiety. 7. Depression. 8. Anemia. 9. Autoimmune hepatitis. 10. GERD. 11. Hemorrhoids. PAST SURGICAL HISTORY: 1. Cholecystectomy in 1995. 2. Cervical spine fusion 2011. 3. Right foot surgery in 1981. 4. Hysterectomy with BSO in 1977. 5. Bowel resection in 2007. SOCIAL HISTORY: The patient is , has three children. Lives alone. She does smoke less than half a pack a day. Former alcohol use, none now. MEDICATIONS: 1. Temazepam. 2. Lisinopril. 3. Tramadol. 4. Zofran. 5. Ipratropium bromide inhalers. 6. Alprazolam 0.5 mg twice a day as needed. 7. Furosemide 20 mg once a day as needed. 8. Fluticasone spray. 9. [place] ophthalmic ointment drops. 10. Januvia 100 mg tablets once a day. 11. Zetia 10 mg once a day. 12. Fluoxetine 40 mg once a day. 13. Spiriva hand-held inhaler once a day. 14. Azathioprine daily. 15. Levemir daily. 16. Protonix daily. 17. Symbicort daily. 18. Duloxetine 30 mg a day. 19. Cetirizine for allergies. 20. Lyrica 50 mg orally. 21. Xopenex inhalers. 22. Lisinopril 5 mg a day. 23. Flonase daily. 24. Celexa daily. FAMILY HISTORY: The patient is adopted. Family history unknown. PHYSICAL EXAMINATION: VITAL SIGNS: 230 pounds, 60 inches, 44 BMI, 131/65, 61. HEAD EARS, EYES, NOSE AND THROAT: Unremarkable. LUNGS: Clear to auscultation. CARDIAC: Regular rate and rhythm. No murmur or gallop. ABDOMEN: Soft, obese, nontender. EXTREMITIES: Unremarkable. Axilla without masses. BREAST: Right breast without masses. Left breast infra-areolar incision fairly well healed with some slight overlapping edges, but no signs of infection. There is a firmness beneath the nipple areolar area consistent with recent wide local excisional biopsy. ASSESSMENT/PLAN: 1. Ductal carcinoma in situ, left breast. The patient desires mastectomy, simple, to avoid radiation. This is probably better considering her smoking history and multifocal nature of her ductal carcinoma in situ. She understands the risks and benefits and consents. We will proceed. 2. Other medical problems as noted above. Job ID: [id number]
[~2020-08-10] MED LIST changes: +Acetaminophen 500 MG TAB ONE; +Bupivacaine HCl 0.5%/Epinephrine 1:200,000/PF 30 ml Vial ONE; +Bupivacaine/Epinephrine 0.25% 30 ML VIAL ONE; +Fentanyl 100 MCG/2 ML VIAL ONE; -Ferumoxytol (NON ERSD) 510 MG in Sodium Chloride 0.9% 250 ML 150 ML IVPB SCH; +Gabapentin 300 MG CAP ONE; +HYDROcodone/Acetaminophen 5/325 mg Tablet ONE; +Ketorolac Tromethamine 30 MG/ML VIAL ONE; +Lidocaine 1% PF 5 ML VIAL ONE; +Lidocaine 2% PF 5 ML VIAL ONE; +Lidocaine 2% w/Epinephrine 1:200K 20 ML VIAL ONE; +Ondansetron PF 4 MG/2 ML Vial ONE; +PROPOFOL 200 MG/20 ML VIAL ONE
--- NOTE | 2020-08-10 09:27 | OP ---
DATE OF PROCEDURE: 08/10/2020 PREOPERATIVE DIAGNOSES: 1. Ductal carcinoma in situ, multifocal, left breast. 2. Desires re-excision with radiation instead of mastectomy. POSTOPERATIVE DIAGNOSES: 1. Ductal carcinoma in situ, multifocal, left breast. 2. Desires re-excision with radiation instead of mastectomy. PROCEDURE PERFORMED: Re-excision of left breast ductal carcinoma in situ, posterior superior, lateral, medial, and inferior margins marked appropriately for pathology evaluation and identification. ANESTHESIA: General, local with 0.25% Marcaine 60 mL with epinephrine, mixed with 2% Xylocaine. DESCRIPTION OF PROCEDURE: The patient was taken to the operating room where under general anesthesia, left breast was prepared with ChloraPrep and draped in routine fashion. Infra-areolar incision made, carried down to skin and subcutaneous tissue after anesthetizing the area with local anesthetic infiltrated in the skin and subcutaneous tissue. The old seroma cavity identified and was re-resected, obtaining new superior, posterior, medial, lateral, and inferior margins. Margins marked appropriately with sutures for pathology evaluation. Good hemostasis obtained with cautery. Subcutaneous tissue was approximated with 3-0 Monocryl, skin with subdermal 4-0 Monocryl, and [place] glue applied after infiltrating local anesthetic in the biopsy cavity. The patient tolerated the procedure well. Job ID: [id number]
== END ==
LOC: SDC 05:57
PROVIDERS: ATTEND Specialist
PROC: 0HBU0ZZ Excision of Left Breast, Open Approach (ICD-10-PCS; principal; 2020-08-10)
DX: D05.12 Intraductal carcinoma in situ of left breast (principal); N60.92 Unspecified benign mammary dysplasia of left breast; E11.9 Type 2 diabetes mellitus without complications; I10 Essential (primary) hypertension; M19.90 Unspecified osteoarthritis, unspecified site; J44.9 Chronic obstructive pulmonary disease, unspecified; F41.9 Anxiety disorder, unspecified; F32.9 Major depressive disorder, single episode, unspecified; K21.9 Gastro-esophageal reflux disease without esophagitis; K75.4 Autoimmune hepatitis; E66.9 Obesity, unspecified; Z68.37 Body mass index [BMI] 37.0-37.9, adult; Z87.891 Personal history of nicotine dependence; Z79.4 Long term (current) use of insulin; Z79.899 Other long term (current) drug therapy; Z91.040 Latex allergy status; Z91.09 Other allergy status, other than to drugs and biological substances; Z90.49 Acquired absence of other specified parts of digestive tract; Z98.1 Arthrodesis status
CPT/HCPCS: 36416; 88307; J0690; J1885; J2001; J2405; J2704; J3010

== ENCOUNTER 2020-12-11 08:47 | Outpatient (CLI) | payer MEDICARE, OTHER ==
--- NOTE | 2020-12-11 10:20 | ULT ---
ULTRASOUND ABDOMEN: HISTORY: Autoimmune hepatitis. Dysphagia. Heartburn. FINDINGS: The patient is post cholecystectomy. The liver demonstrates increased echogenicity consistent with f atty infiltration without focal mass or intrahepatic ductal dilatation. The common duct measures 6 m m in diameter. The spleen is enlarged measuring 15.6 cm in length. The pancreas is not well visualized due to overlying bowel gas. The visualized portions of the aorta and IVC are unremarkable. No hydronephrosis is seen on either side. There is a 6.5 x 7.1 x 6.8 cm cyst arising from the medial aspect of the right mid kidney and a 1.9 x 3.5 x 3.1 cm cyst arising fro m the medial aspect of the inferior left kidney. No free fluid is seen. IMPRESSION: 1. Fatty liver. 2. Status post cholecystectomy. 3. Bilateral renal cysts. 4. Splenomegaly. POS: OFF
== END 2020-12-11 08:48 | disposition home or self-care (01) ==
LOC: BICULT 08:47
PROVIDERS: ATTEND Internal Medicine
DX: K75.4 Autoimmune hepatitis (principal); R13.10 Dysphagia, unspecified; R12 Heartburn; K76.0 Fatty (change of) liver, not elsewhere classified; N28.1 Cyst of kidney, acquired; R16.1 Splenomegaly, not elsewhere classified; Z90.49 Acquired absence of other specified parts of digestive tract
CPT/HCPCS: 93975

== ENCOUNTER 2021-05-01 14:21 | Inpatient (IN) | payer MEDICARE, MEDICAID ==
[2021-05-01] MEDS ORDERED: Ondansetron PF 4 MG/2 ML Vial IVP PRN (19:55)
[2021-05-01] MEDS ORDERED: Dextrose 50% Abboject 50 ML SYRINGE SLOW IVP PRN (19:57)
[2021-05-01] MEDS ORDERED: Dextrose 5% in Water 1,000 ML IV PRN (19:57)
[2021-05-01 21:54] LABS: Troponin I Less than 0.010 ng/mL (< 0.028)
[2021-05-01 22:15] VITALS: BMI 46.7
[2021-05-01] MEDS ORDERED: Furosemide 20 MG/2 ML VIAL SLOW IVP SCH (23:00)
[2021-05-01] MEDS: methylPREDNISolone Sod Succ 40 MG VIAL IVP SCH (23:46)
[2021-05-01] MEDS: Acetaminophen 325 MG TAB PO PRN (23:47)
[2021-05-02 00:09] LABS: Troponin I Less than 0.010 ng/mL (< 0.028)
[2021-05-02 04:57] LABS: Anion Gap 15 mmol/L (10-20); BUN (Urea Nitrogen) 13 mg/dL (9.8-20.1); Calc. Creatinine Clearance 145 mL/min (70-130); Calcium 9.3 mg/dL (7.8-10.44); Carbon Dioxide 25 mmol/L (23-31); Chloride 99 mmol/L (98-107); Glucose 251 mg/dL (80-115); Iron 50 ug/dL (50-170); Iron Binding Capacity, Total 298 mcg/dL (265-497); Potassium 4.4 mmol/L (3.5-5.1); Sodium 135 mmol/L (136-145)
[2021-05-02 04:58] LABS: Iron 50 ug/dL (50-170); Iron Binding Capacity, Total 299 mcg/dL (265-497)
[2021-05-02 05:03] LABS: Hemoglobin 12.2 g/dL (12.0-16.0); Lymphocytes 5 % (21-51); MDiff Complete? YES; Mean Corpuscular HGB CONC 34.4 g/dL (32.0-36.0); Mean Corpuscular Volume 95.8 fL (78.0-98.0); Mean Platelet Volume 7.9 fL (7.4-10.4); Metamyelocyte 1 % (0-0); Monocytes 1 % (0-10); Neutrophil 93 % (42-75); Platelet Count 162 thou/uL (130-400); Platelet Morphology Comment Appears Adequate; RBC Distribution Width 16.6 % (11.5-14.5); Red Blood Cell (RBC) Count 3.69 mill/uL (4.20-5.40); White Blood Cell (WBC) Count 5.5 thou/uL (4.8-10.8)
[2021-05-02] MEDS: methylPREDNISolone Sod Succ 40 MG VIAL IVP SCH ×3 (05:34→18:19)
[2021-05-02] MEDS: HumaLOG 300 UNITS/3 ML VIAL SC PRN ×4 (06:24→21:05)
[2021-05-02] MEDS ORDERED: Furosemide 20 MG/2 ML VIAL SLOW IVP SCH (09:00)
[2021-05-02] MEDS ORDERED: traMADol HCl 50 MG TAB PO PRN (09:19)
[2021-05-02] MEDS ORDERED: Ibuprofen 200 MG TAB PO PRN (09:19)
[2021-05-02] MEDS ORDERED: Sucralfate 1 GM/10 ML UDCUP PO PRN (09:19)
[2021-05-02] MEDS ORDERED: Loratadine 10 MG TAB PO PRN (09:25)
[2021-05-02] MEDS ORDERED: ALPRAZolam 0.5 MG TAB PO SCH (10:00)
[2021-05-02] MEDS ORDERED: Alogliptin 25 MG TAB PO SCH (10:00)
[2021-05-02] MEDS ORDERED: DULoxetine 60 MG CAP PO SCH (10:00)
[2021-05-02] MEDS ORDERED: Cyanocobalamin (Vitamin B-12) 1,000 MCG TAB PO SCH (10:00)
[2021-05-02] MEDS ORDERED: Cyclobenzaprine 10 MG TAB PO SCH (10:00)
[2021-05-02] MEDS ORDERED: azaTHIOprine 50 MG TAB PO SCH (10:00)
[2021-05-02] MEDS ORDERED: Lisinopril 20 MG TAB PO SCH (10:00)
[2021-05-02] MEDS ORDERED: Ezetimibe 10 MG TAB PO SCH (10:00)
[2021-05-02] MEDS ORDERED: Pregabalin 50 MG CAP PO SCH (10:15)
[2021-05-02] MEDS ORDERED: Lantus 1000 UNITS/10 ML VIAL SC SCH (10:15)
[2021-05-02] MEDS: Cyclobenzaprine 10 MG TAB PO SCH ×2 (15:13→21:04)
[2021-05-02] MEDS: ALPRAZolam 0.5 MG TAB PO SCH ×2 (15:13→21:03)
[2021-05-02] MEDS: Mometasone 200 MCG/Formoterol 5 MCG 120 PUFF INHALER INH SCH (18:48)
[2021-05-02] MEDS: Mometasone Furoate 30 PUFF 220 MCG INH SCH (18:52)
[2021-05-02] MEDS ORDERED: Non-Formulary Item 1 EACH (Insulin Detemir [Levemir Flextouch] 100 UNIT/ML Insuln.Pen) SQ SCH (21:00)
[2021-05-02] MEDS: Doxycycline 100 MG CAP PO SCH (21:04)
[2021-05-02] MEDS: FLUoxetine HCl 20 MG CAP PO SCH (21:04)
[2021-05-02] MEDS: Divalproex Sodium 125 mg Sprinkle Capsule PO SCH (21:04)
[2021-05-02] MEDS: Lantus 1000 UNITS/10 ML VIAL SC SCH (21:05)
[2021-05-03] MEDS: methylPREDNISolone Sod Succ 40 MG VIAL IVP SCH ×4 (00:01→17:17)
[2021-05-03 05:06] LABS: #Lymphocytes 0.2 thou/uL (1.20-3.40); #Monocytes 0.2 thou/uL (0.11-0.59); #Neutrophils 7.9 thou/uL (1.40-6.50); %Basophils 0.2 % (0.0-1.0); %Eosinophils 0.2 % (0.0-10.0); %Lymphocytes 2.7 % (21.0-51.0); %Monocytes 2.6 % (0.0-10.0); %Neutrophils 94.4 % (42.0-75.0); Hemoglobin 11.1 g/dL (12.0-16.0); Mean Corpuscular HGB CONC 33.1 g/dL (32.0-36.0); Mean Corpuscular Volume 96.7 fL (78.0-98.0); Mean Platelet Volume 8.1 fL (7.4-10.4); Platelet Count 175 thou/uL (130-400); RBC Distribution Width 16.5 % (11.5-14.5); Red Blood Cell (RBC) Count 3.48 mill/uL (4.20-5.40); White Blood Cell (WBC) Count 8.4 thou/uL (4.8-10.8)
[2021-05-03 05:20] LABS: Anion Gap 14 mmol/L (10-20); BUN (Urea Nitrogen) 18 mg/dL (9.8-20.1); Calc. Creatinine Clearance 121 mL/min (70-130); Calcium 9.1 mg/dL (7.8-10.44); Carbon Dioxide 27 mmol/L (23-31); Chloride 98 mmol/L (98-107); Glucose 349 mg/dL (80-115); Potassium 4.6 mmol/L (3.5-5.1); Sodium 134 mmol/L (136-145)
[2021-05-03] MEDS: Acetaminophen 325 MG TAB PO PRN (05:45)
[2021-05-03] MEDS: HumaLOG 300 UNITS/3 ML VIAL SC PRN ×4 (05:49→20:50)
[2021-05-03] MEDS: Mometasone 200 MCG/Formoterol 5 MCG 120 PUFF INHALER INH SCH ×2 (07:10→19:01)
[2021-05-03] MEDS: DULoxetine 60 MG CAP PO SCH (08:11)
[2021-05-03] MEDS: Alogliptin 25 MG TAB PO SCH (08:11)
[2021-05-03] MEDS: Doxycycline 100 MG CAP PO SCH ×2 (08:11→20:51)
[2021-05-03] MEDS: FLUoxetine HCl 20 MG CAP PO SCH ×2 (08:11→20:51)
[2021-05-03] MEDS: Cyclobenzaprine 10 MG TAB PO SCH ×3 (08:12→20:50)
[2021-05-03] MEDS: Pregabalin 50 MG CAP PO SCH (08:12)
[2021-05-03] MEDS: Ezetimibe 10 MG TAB PO SCH (08:12)
[2021-05-03] MEDS: Docusate 100 MG CAP PO SCH (08:12)
[2021-05-03] MEDS: Divalproex Sodium 125 mg Sprinkle Capsule PO SCH ×2 (08:13→20:51)
[2021-05-03] MEDS: Lisinopril 20 MG TAB PO SCH (08:13)
[2021-05-03] MEDS: azaTHIOprine 50 MG TAB PO SCH (08:14)
[2021-05-03] MEDS: Cyanocobalamin (Vitamin B-12) 1,000 MCG TAB PO SCH (08:14)
[2021-05-03] MEDS: ALPRAZolam 0.5 MG TAB PO SCH ×3 (08:14→20:51)
[2021-05-03] MEDS: Lantus 1000 UNITS/10 ML VIAL SC SCH ×2 (08:15→20:50)
[2021-05-03] MEDS ORDERED: Non-Formulary Item 1 EACH (Tiotropium [Spiriva Handihaler] 18 MCG Box) INH SCH (09:00)
[2021-05-03] MEDS ORDERED: Furosemide 20 MG TAB PO SCH (09:00)
[2021-05-03] MEDS: Furosemide 40 MG/4 ML VIAL SLOW IVP SCH (15:00)
[2021-05-03] MEDS: Mometasone Furoate 30 PUFF 220 MCG INH SCH (19:20)
[2021-05-04] MEDS: methylPREDNISolone Sod Succ 40 MG VIAL IVP SCH ×4 (00:50→21:25)
[2021-05-04 04:33] LABS: Anion Gap 15 mmol/L (10-20); BUN (Urea Nitrogen) 19 mg/dL (9.8-20.1); Calc. Creatinine Clearance 141 mL/min (70-130); Calcium 9.4 mg/dL (7.8-10.44); Carbon Dioxide 26 mmol/L (23-31); Chloride 98 mmol/L (98-107); Glucose 218 mg/dL (80-115); Potassium 4.5 mmol/L (3.5-5.1); Sodium 134 mmol/L (136-145)
[2021-05-04] MEDS: Furosemide 40 MG/4 ML VIAL SLOW IVP SCH ×2 (05:30→14:57)
[2021-05-04] MEDS: Mometasone 200 MCG/Formoterol 5 MCG 120 PUFF INHALER INH SCH ×2 (06:56→19:06)
[2021-05-04] MEDS ORDERED: Calcium Carbonate 500 MG ChewTAB PO PRN (08:00)
[2021-05-04] MEDS ORDERED: Benzonatate 100 MG CAP PO PRN (08:00)
[2021-05-04] MEDS ORDERED: Cepastat Lozenges 1 LOZ PO PRN (08:00)
[2021-05-04] MEDS ORDERED: Sodium Chloride 0.65% Nasal 44 ML BOT EA NARE PRN (08:00)
[2021-05-04] MEDS ORDERED: Loperamide HCl 2 MG CAP PO PRN (08:00)
[2021-05-04] MEDS ORDERED: HYDROcodone/Acetaminophen 5/325 mg Tablet PO PRN (08:00)
[2021-05-04] MEDS ORDERED: Bisacodyl 5 MG TAB PO PRN (08:00)
[2021-05-04] MEDS ORDERED: GUAIFENESIN SF SOLN 200 MG/10 ML UDCUP PO PRN (08:00)
[2021-05-04] MEDS ORDERED: hydrALAZINE 20 MG/ML VIAL SLOW IVP PRN (08:00)
[2021-05-04] MEDS ORDERED: Ondansetron ODT 4 MG TAB PO PRN (08:00)
[2021-05-04] MEDS ORDERED: Senokot S 8.6-50 MG TAB PO PRN (08:00)
[2021-05-04] MEDS ORDERED: Temazepam 15 MG CAP PO PRN (08:00)
[2021-05-04] MEDS: Ezetimibe 10 MG TAB PO SCH (09:44)
[2021-05-04] MEDS: Pregabalin 50 MG CAP PO SCH (09:44)
[2021-05-04] MEDS: ALPRAZolam 0.5 MG TAB PO SCH ×3 (09:44→21:19)
[2021-05-04] MEDS: Divalproex Sodium 125 mg Sprinkle Capsule PO SCH ×2 (09:45→21:19)
[2021-05-04] MEDS: azaTHIOprine 50 MG TAB PO SCH (09:45)
[2021-05-04] MEDS: Docusate 100 MG CAP PO SCH (09:45)
[2021-05-04] MEDS: Cyclobenzaprine 10 MG TAB PO SCH ×3 (09:45→21:19)
[2021-05-04] MEDS: FLUoxetine HCl 20 MG CAP PO SCH ×2 (09:45→21:19)
[2021-05-04] MEDS: Cyanocobalamin (Vitamin B-12) 1,000 MCG TAB PO SCH (09:45)
[2021-05-04] MEDS: Doxycycline 100 MG CAP PO SCH ×2 (09:45→21:20)
[2021-05-04] MEDS: DULoxetine 60 MG CAP PO SCH (09:46)
[2021-05-04] MEDS: Enoxaparin Sodium 40 MG/0.4 ML SYRINGE SC SCH (09:47)
[2021-05-04] MEDS: Lisinopril 20 MG TAB PO SCH (09:47)
[2021-05-04] MEDS: Alogliptin 25 MG TAB PO SCH (09:49)
[2021-05-04] MEDS: Lantus 1000 UNITS/10 ML VIAL SC SCH ×2 (14:55→21:23)
[2021-05-04 15:03] LABS: Free T4 (Free Thyroxine) 0.79 ng/dL (0.70-1.48)
[2021-05-04 16:29] LABS: Hemoglobin A1c 6.1 % (4.0-6.0)
[2021-05-04 16:32] LABS: ALT (SGPT) 7 U/L (8-55); AST (SGOT) 10 U/L (5-34); Albumin 3.7 g/dL (3.4-4.8); Alkaline Phosphatase 39 U/L (40-110); Bilirubin, Direct 0.1 mg/dL (0.1-0.3); Bilirubin, Total 0.2 mg/dL (0.2-1.2); Protein, Total 6.8 g/dL (5.8-8.1)
[2021-05-04 16:41] LABS: #Lymphocytes 0.9 thou/uL (1.20-3.40); #Monocytes 0.6 thou/uL (0.11-0.59); #Neutrophils 8.1 thou/uL (1.40-6.50); %Basophils 0.1 % (0.0-1.0); %Eosinophils 0.2 % (0.0-10.0); %Lymphocytes 9.7 % (21.0-51.0); %Monocytes 5.7 % (0.0-10.0); %Neutrophils 84.3 % (42.0-75.0); Hemoglobin 12.2 g/dL (12.0-16.0); Mean Corpuscular HGB CONC 32.2 g/dL (32.0-36.0); Mean Corpuscular Hemoglobin 31.4 pg (27.0-31.0); Mean Corpuscular Volume 97.5 fL (78.0-98.0); Mean Platelet Volume 7.8 fL (7.4-10.4); Platelet Count 217 thou/uL (130-400); White Blood Cell (WBC) Count 9.6 thou/uL (4.8-10.8)
[2021-05-04 17:30] LABS: Bacteria/HPF 4+ HPF (None Seen); Bilirubin Negative (Negative); Blood, Urine Negative (Negative); Clarity Clear (Clear); Glucose, Urine (Dipstick) Normal (Negative); Ketone, Urine Negative (Negative); Leukocyte Negative Leu/uL (Negative); Nitrite 2+ (Negative); Protein, Urine (Dipstick) Negative (Neg-Trace); RBC/HPF 0-3 HPF (0-3); Specific Gravity, Urine 1.013 (1.002-1.036); Squamous Epithelial None Seen HPF (0-3); Urobilinogen Normal mg/dL (Less than 2); WBC/HPF 0-3 HPF (0-3); pH, Urine 6.5 (5.0-9.0)
[2021-05-04 17:32] LABS: Urine Culture Reflex Yes Yes
[2021-05-04] MEDS: Mometasone Furoate 30 PUFF 220 MCG INH SCH (19:08)
[2021-05-04] MEDS: HumaLOG 300 UNITS/3 ML VIAL SC PRN (21:24)
[2021-05-05] MEDS: methylPREDNISolone Sod Succ 40 MG VIAL IVP SCH (06:03)
[2021-05-05] MEDS: Furosemide 40 MG/4 ML VIAL SLOW IVP SCH ×2 (06:03→14:26)
[2021-05-05] MEDS: HumaLOG 300 UNITS/3 ML VIAL SC PRN (06:04)
[2021-05-05] MEDS: Mometasone 200 MCG/Formoterol 5 MCG 120 PUFF INHALER INH SCH ×2 (06:51→19:28)
[2021-05-05] MEDS: Pregabalin 50 MG CAP PO SCH (07:50)
[2021-05-05] MEDS: azaTHIOprine 50 MG TAB PO SCH (07:50)
[2021-05-05] MEDS: Divalproex Sodium 125 mg Sprinkle Capsule PO SCH ×2 (07:51→07:55)
[2021-05-05] MEDS: ALPRAZolam 0.5 MG TAB PO SCH ×3 (07:54→20:54)
[2021-05-05] MEDS: Enoxaparin Sodium 40 MG/0.4 ML SYRINGE SC SCH (07:54)
[2021-05-05] MEDS: DULoxetine 60 MG CAP PO SCH (07:54)
[2021-05-05] MEDS: Alogliptin 25 MG TAB PO SCH (07:54)
[2021-05-05] MEDS: Cyclobenzaprine 10 MG TAB PO SCH ×3 (07:55→20:54)
[2021-05-05] MEDS: Cyanocobalamin (Vitamin B-12) 1,000 MCG TAB PO SCH (07:55)
[2021-05-05] MEDS: Docusate 100 MG CAP PO SCH (07:56)
[2021-05-05] MEDS: Doxycycline 100 MG CAP PO SCH ×2 (07:56→20:54)
[2021-05-05] MEDS: FLUoxetine HCl 20 MG CAP PO SCH ×2 (07:56→20:55)
[2021-05-05] MEDS: Ezetimibe 10 MG TAB PO SCH (07:56)
[2021-05-05] MEDS: Lisinopril 20 MG TAB PO SCH (07:58)
[2021-05-05] MEDS: Lantus 1000 UNITS/10 ML VIAL SC SCH ×2 (07:58→20:59)
[2021-05-05] MEDS: Mometasone Furoate 30 PUFF 220 MCG INH SCH (18:34)
[2021-05-05] MEDS ORDERED: methylPREDNISolone Sod Succ 40 MG VIAL IVP SCH (21:00)
[2021-05-06] MEDS: Furosemide 40 MG/4 ML VIAL SLOW IVP SCH ×2 (06:19→14:48)
[2021-05-06] MEDS: HumaLOG 300 UNITS/3 ML VIAL SC PRN ×3 (06:19→20:50)
[2021-05-06] MEDS: Mometasone 200 MCG/Formoterol 5 MCG 120 PUFF INHALER INH SCH ×2 (06:59→18:31)
[2021-05-06] MEDS: FLUoxetine HCl 20 MG CAP PO SCH ×2 (07:51→20:43)
[2021-05-06] MEDS: Enoxaparin Sodium 40 MG/0.4 ML SYRINGE SC SCH (07:51)
[2021-05-06] MEDS: azaTHIOprine 50 MG TAB PO SCH (07:52)
[2021-05-06] MEDS: Cyanocobalamin (Vitamin B-12) 1,000 MCG TAB PO SCH (07:52)
[2021-05-06] MEDS: Divalproex Sodium 125 mg Sprinkle Capsule PO SCH ×2 (07:53→20:42)
[2021-05-06] MEDS: DULoxetine 60 MG CAP PO SCH (07:53)
[2021-05-06] MEDS: ALPRAZolam 0.5 MG TAB PO SCH ×3 (07:53→20:42)
[2021-05-06] MEDS: Doxycycline 100 MG CAP PO SCH (07:53)
[2021-05-06] MEDS: Pregabalin 50 MG CAP PO SCH (07:53)
[2021-05-06] MEDS: Ezetimibe 10 MG TAB PO SCH (07:53)
[2021-05-06] MEDS: Lisinopril 20 MG TAB PO SCH (07:53)
[2021-05-06] MEDS: Cyclobenzaprine 10 MG TAB PO SCH ×3 (07:53→20:43)
[2021-05-06] MEDS: Alogliptin 25 MG TAB PO SCH (07:54)
[2021-05-06] MEDS: Docusate 100 MG CAP PO SCH (07:54)
[2021-05-06] MEDS: methylPREDNISolone Sod Succ 40 MG VIAL IVP SCH ×2 (07:55→20:43)
[2021-05-06] MEDS: Lantus 1000 UNITS/10 ML VIAL SC SCH ×2 (07:55→20:49)
[2021-05-06] MEDS: Mometasone Furoate 30 PUFF 220 MCG INH SCH (18:31)
[2021-05-07 05:13] LABS: Anion Gap 16 mmol/L (10-20); BUN (Urea Nitrogen) 25 mg/dL (9.8-20.1); Calc. Creatinine Clearance 116 mL/min (70-130); Calcium 9.1 mg/dL (7.8-10.44); Carbon Dioxide 26 mmol/L (23-31); Chloride 96 mmol/L (98-107); Glucose 219 mg/dL (80-115); Magnesium 1.8 mg/dL (1.6-2.6); Phosphorus 4.3 mg/dL (2.3-4.7); Potassium 4.3 mmol/L (3.5-5.1); Sodium 134 mmol/L (136-145)
[2021-05-07] MEDS: HumaLOG 300 UNITS/3 ML VIAL SC PRN ×2 (06:04→11:56)
[2021-05-07] MEDS: Furosemide 40 MG/4 ML VIAL SLOW IVP SCH ×2 (06:06→13:33)
[2021-05-07 06:26] LABS: #Lymphocytes 0.7 thou/uL (1.20-3.40); #Monocytes 0.4 thou/uL (0.11-0.59); #Neutrophils 6.2 thou/uL (1.40-6.50); %Basophils 0.1 % (0.0-1.0); %Eosinophils 0.3 % (0.0-10.0); %Lymphocytes 9.7 % (21.0-51.0); %Monocytes 4.9 % (0.0-10.0); Hemoglobin 12.9 g/dL (12.0-16.0); Mean Corpuscular HGB CONC 30.9 g/dL (32.0-36.0); Mean Corpuscular Hemoglobin 30.3 pg (27.0-31.0); Mean Corpuscular Volume 98.2 fL (78.0-98.0); Mean Platelet Volume 7.3 fL (7.4-10.4); Platelet Count 206 thou/uL (130-400); RBC Distribution Width 16.5 % (11.5-14.5); Red Blood Cell (RBC) Count 4.27 mill/uL (4.20-5.40); White Blood Cell (WBC) Count 7.3 thou/uL (4.8-10.8)
[2021-05-07] MEDS: Mometasone 200 MCG/Formoterol 5 MCG 120 PUFF INHALER INH SCH (07:43)
[2021-05-07] MEDS ORDERED: Magnesium 2 GM/50 ML 2 GM in Premix Bag 1 BAG IVPB SCH (08:15)
[2021-05-07] MEDS: Cyanocobalamin (Vitamin B-12) 1,000 MCG TAB PO SCH (09:15)
[2021-05-07] MEDS: Docusate 100 MG CAP PO SCH (09:15)
[2021-05-07] MEDS: azaTHIOprine 50 MG TAB PO SCH (09:15)
[2021-05-07] MEDS: Ezetimibe 10 MG TAB PO SCH (09:16)
[2021-05-07] MEDS: ALPRAZolam 0.5 MG TAB PO SCH (09:16)
[2021-05-07] MEDS: Divalproex Sodium 125 mg Sprinkle Capsule PO SCH (09:16)
[2021-05-07] MEDS: DULoxetine 60 MG CAP PO SCH (09:16)
[2021-05-07] MEDS: Pregabalin 50 MG CAP PO SCH (09:16)
[2021-05-07] MEDS: Cyclobenzaprine 10 MG TAB PO SCH (09:17)
[2021-05-07] MEDS: methylPREDNISolone Sod Succ 40 MG VIAL IVP SCH (09:17)
[2021-05-07] MEDS: Lisinopril 20 MG TAB PO SCH (09:17)
[2021-05-07] MEDS: Enoxaparin Sodium 40 MG/0.4 ML SYRINGE SC SCH (10:38)
[2021-05-07] MEDS: Alogliptin 25 MG TAB PO SCH (10:38)
[2021-05-07] MEDS: FLUoxetine HCl 20 MG CAP PO SCH (10:38)
[2021-05-07] MEDS: Lantus 1000 UNITS/10 ML VIAL SC SCH (10:39)
[2021-05-07 12:03] VITALS: BP 140/66; TEMP 98.2
[2021-05-09] MEDS ORDERED: BUPRENORPHINE 20 MCG/HR DT SCH (09:00)
== END 2021-05-07 14:10 | disposition home or self-care (01) | DRG 280 ==
LOC: 2NO 20:30
PROVIDERS: ADMIT Family Medicine; ATTEND Internal Medicine
DX: I13.2 Hypertensive heart and chronic kidney disease with heart failure and with stage 5 chronic kidney disease, or end stage renal disease (principal); I21.A1 Myocardial infarction type 2; I50.33 Acute on chronic diastolic (congestive) heart failure; J96.21 Acute and chronic respiratory failure with hypoxia; J44.1 Chronic obstructive pulmonary disease with (acute) exacerbation; E87.1 Hypo-osmolality and hyponatremia; Z20.822 Contact with and (suspected) exposure to COVID-19; Z66 Do not resuscitate; F43.10 Post-traumatic stress disorder, unspecified; F41.9 Anxiety disorder, unspecified; F17.210 Nicotine dependence, cigarettes, uncomplicated; E78.5 Hyperlipidemia, unspecified; K75.4 Autoimmune hepatitis; G47.33 Obstructive sleep apnea (adult) (pediatric); M19.90 Unspecified osteoarthritis, unspecified site; B18.2 Chronic viral hepatitis C; K21.9 Gastro-esophageal reflux disease without esophagitis; M79.7 Fibromyalgia; N18.2 Chronic kidney disease, stage 2 (mild); E83.42 Hypomagnesemia; D53.9 Nutritional anemia, unspecified; R91.1 Solitary pulmonary nodule; G89.4 Chronic pain syndrome; E11.22 Type 2 diabetes mellitus with diabetic chronic kidney disease; Z99.81 Dependence on supplemental oxygen; Z99.3 Dependence on wheelchair; Z91.040 Latex allergy status; Z91.048 Other nonmedicinal substance allergy status; Z79.899 Other long term (current) drug therapy; Z79.4 Long term (current) use of insulin; Z90.49 Acquired absence of other specified parts of digestive tract; Z90.710 Acquired absence of both cervix and uterus; Z98.890 Other specified postprocedural states
CPT/HCPCS: 36415; 36416; 71045; 80048; 80076; 81001; 82728; 83036; 83540; 83550; 83735; 83880; 84100; 84439; 84443; 84481; 85025; 87077; 87086; 87186; 93306; 94640; J1650; J1815; J1940; J2920; J3475; J7500; J7620

== ENCOUNTER 2021-06-19 12:08 | Outpatient (CLI) | payer MEDICARE, MEDICAID ==
[2021-06-19 22:52] LABS: SARS-CoV-2 PCR by NAA Not Detected (NotDetected)
== END 2021-06-19 12:09 | disposition home or self-care (01) ==
LOC: LABBT 12:08
PROVIDERS: ATTEND Internal Medicine
DX: Z01.812 Encounter for preprocedural laboratory examination (principal); K21.00 Gastro-esophageal reflux disease with esophagitis, without bleeding; K75.4 Autoimmune hepatitis; R11.2 Nausea with vomiting, unspecified; J43.9 Emphysema, unspecified; Z20.822 Contact with and (suspected) exposure to COVID-19
CPT/HCPCS: U0003; U0005

== ENCOUNTER 2021-06-24 05:58 | Day surgery (SDC) | payer MEDICARE, MEDICAID ==
[2021-06-24] MEDS ORDERED: Ketamine 50 MG/ML (10ML VIAL) ONE (07:40)
[2021-06-24] MEDS ORDERED: Midazolam HCl 2 mg/2 ml Vial ONE (07:40)
[2021-06-24] MEDS ORDERED: PROPOFOL 200 MG/20 ML VIAL ONE (08:14)
[2021-06-24] MEDS ORDERED: Glycopyrrolate 0.2 MG/ML 5 ML SYRINGE ONE (08:14)
== END 2021-06-24 10:20 | disposition short-term general hospital (02) ==
LOC: SDC 05:58
PROVIDERS: ATTEND Internal Medicine
PROC: 0DJ08ZZ Inspection of Upper Intestinal Tract, Via Natural or Artificial Opening Endoscopic (ICD-10-PCS; principal; 2021-06-24)
PROC: 0DBC8ZX Excision of Ileocecal Valve, Via Natural or Artificial Opening Endoscopic, Diagnostic (ICD-10-PCS; 2021-06-24)
PROC: 0DBL8ZX Excision of Transverse Colon, Via Natural or Artificial Opening Endoscopic, Diagnostic (ICD-10-PCS; 2021-06-24)
DX: D12.3 Benign neoplasm of transverse colon (principal); K63.3 Ulcer of intestine; K22.70 Barrett's esophagus without dysplasia; D17.5 Benign lipomatous neoplasm of intra-abdominal organs; K64.8 Other hemorrhoids; K64.4 Residual hemorrhoidal skin tags; D50.9 Iron deficiency anemia, unspecified; K21.9 Gastro-esophageal reflux disease without esophagitis; K75.4 Autoimmune hepatitis; J43.9 Emphysema, unspecified; E11.9 Type 2 diabetes mellitus without complications; F17.200 Nicotine dependence, unspecified, uncomplicated; J30.89 Other allergic rhinitis; J30.81 Allergic rhinitis due to animal (cat) (dog) hair and dander; J30.1 Allergic rhinitis due to pollen; E66.9 Obesity, unspecified; Z68.42 Body mass index [BMI] 45.0-49.9, adult; Z86.010 Personal history of colon polyps; Z79.4 Long term (current) use of insulin; Z79.899 Other long term (current) drug therapy; Z91.038 Other insect allergy status; Z91.040 Latex allergy status; Z91.048 Other nonmedicinal substance allergy status; Z90.49 Acquired absence of other specified parts of digestive tract
CPT/HCPCS: 36416; 88305; 88341; 88342; J2250; J2704; J7620

== ENCOUNTER 2021-08-13 07:12 | Day surgery (SDC) | payer MEDICARE, MEDICAID ==
[2021-08-08 14:13] VITALS: BMI 50.8
[2021-08-13 08:11] VITALS: BP 132/66; TEMP 97.9
[2021-08-13] MEDS ORDERED: Iopamidol-M 300 61% 15 ML VIAL ONE (16:18)
== END 2021-08-13 10:15 | disposition home or self-care (01) ==
LOC: RAD 07:12 → EDSTATUS 08:00 → RAD 10:15
PROVIDERS: ATTEND Neurological Surgery
PROC: B02B1ZZ Computerized Tomography (CT Scan) of Spinal Cord using Low Osmolar Contrast (ICD-10-PCS; principal; 2021-08-13)
DX: M50.122 Cervical disc disorder at C5-C6 level with radiculopathy (principal); M51.14 Intervertebral disc disorders with radiculopathy, thoracic region; M51.15 Intervertebral disc disorders with radiculopathy, thoracolumbar region; M48.02 Spinal stenosis, cervical region; M48.03 Spinal stenosis, cervicothoracic region; M48.04 Spinal stenosis, thoracic region; M48.05 Spinal stenosis, thoracolumbar region; M48.062 Spinal stenosis, lumbar region with neurogenic claudication; M43.16 Spondylolisthesis, lumbar region; R91.1 Solitary pulmonary nodule; I70.0 Atherosclerosis of aorta; N28.1 Cyst of kidney, acquired; J43.9 Emphysema, unspecified; M79.7 Fibromyalgia; E78.5 Hyperlipidemia, unspecified; E11.9 Type 2 diabetes mellitus without complications; I10 Essential (primary) hypertension; F12.10 Cannabis abuse, uncomplicated; K21.9 Gastro-esophageal reflux disease without esophagitis; J30.81 Allergic rhinitis due to animal (cat) (dog) hair and dander; J30.1 Allergic rhinitis due to pollen; I25.10 Atherosclerotic heart disease of native coronary artery without angina pectoris; F17.210 Nicotine dependence, cigarettes, uncomplicated; E66.9 Obesity, unspecified; Z68.43 Body mass index [BMI] 50.0-59.9, adult; Z79.4 Long term (current) use of insulin; Z79.810 Long term (current) use of selective estrogen receptor modulators (SERMs); Z79.84 Long term (current) use of oral hypoglycemic drugs; Z79.899 Other long term (current) drug therapy; Z91.038 Other insect allergy status; Z91.040 Latex allergy status; Z98.1 Arthrodesis status
CPT/HCPCS: 62305; 72126; 72129; 72132

== ENCOUNTER 2021-09-12 08:17 | Outpatient (CLI) | payer MEDICARE, MEDICAID | END 2021-09-12 08:18 | disposition home or self-care (01) | LOC: CT 08:17 | PROVIDERS: ATTEND Internal Medicine | DX: K63.3 Ulcer of intestine (principal); K21.9 Gastro-esophageal reflux disease without esophagitis; K75.4 Autoimmune hepatitis; N28.1 Cyst of kidney, acquired; Z90.49 Acquired absence of other specified parts of digestive tract; Z90.710 Acquired absence of both cervix and uterus | CPT/HCPCS: 74177; 82565 ==

== ENCOUNTER 2021-11-05 11:50 | Outpatient (CLI) | payer MEDICARE, MEDICAID ==
[2021-11-05 13:36] LABS: #Eosinphils 0.1 10x3/uL (0.0-0.5); #Monocytes 0.5 10x3/uL (0.0-1.1); #Neutrophils 4.9 10x3/uL (1.5-8.4); %Basophils 0.3 % (0.0-2.0); %Lymphocytes 9.2 % (18.0-47.0); %Monocytes 7.5 % (0.0-10.0); %Neutrophils 81.7 % (40.0-75.0); Mean Corpuscular HGB CONC 30.9 g/dL (32.0-36.0); Mean Corpuscular Hemoglobin 29.3 pg (27.0-33.0); Mean Corpuscular Volume 94.9 fl (81.6-98.3); Mean Platelet Volume 11.7 fl (7.4-10.4); Platelet Count 94 10x3/uL (150-450); RBC Distribution Width 18.7 % (11.5-14.5); Red Blood Cell (RBC) Count 3.75 10x6/uL (3.90-5.03)
[2021-11-05 14:14] LABS: Platelet Clumps MODERATE; Platelet Morphology Comment PLT clumps seen-LOW
[2021-11-05 14:17] LABS: ALT (SGPT) 10 U/L (8-55); AST (SGOT) 27 U/L (5-34); Albumin 3.5 g/dL (3.4-4.8); Alkaline Phosphatase 39 U/L (40-110); Anion Gap 13 mmol/L (10-20); BUN (Urea Nitrogen) 14 mg/dL (9.8-20.1); Bilirubin, Total 0.2 mg/dL (0.2-1.2); Calc. Creatinine Clearance 0 mL/min (70-130); Calcium 9.4 mg/dL (7.8-10.44); Carbon Dioxide 32 mmol/L (23-31); Chloride 101 mmol/L (98-107); Globulin 3.1 g/dL (2.4-3.5); Glucose 127 mg/dL (80-115); Potassium 4.7 mmol/L (3.5-5.1); Protein, Total 6.6 g/dL (5.8-8.1); Sodium 141 mmol/L (136-145)
[2021-11-05 20:13] LABS: SARS-CoV-2 PCR by NAA Not Detected (NotDetected)
== END 2021-11-05 11:51 | disposition home or self-care (01) ==
LOC: LABBT 11:50
PROVIDERS: ATTEND Internal Medicine
DX: Z01.812 Encounter for preprocedural laboratory examination (principal); K21.9 Gastro-esophageal reflux disease without esophagitis; K75.4 Autoimmune hepatitis; K63.89 Other specified diseases of intestine; Z20.822 Contact with and (suspected) exposure to COVID-19
CPT/HCPCS: 80053; 85025; U0003; U0005

== ENCOUNTER 2021-11-06 11:01 | Emergency (ER) | payer MEDICARE, MEDICAID ==
[2021-11-06] MEDS ORDERED: Fentanyl 100 MCG/2 ML VIAL ONE (11:33)
[2021-11-06 12:04] LABS: #Lymphocytes 0.4 thou/uL (1.20-3.40); #Monocytes 0.2 thou/uL (0.11-0.59); #Neutrophils 3.1 thou/uL (1.40-6.50); %Basophils 0.4 % (0.0-1.0); %Eosinophils 0.8 % (0.0-10.0); %Lymphocytes 10.7 % (21.0-51.0); %Monocytes 5.3 % (0.0-10.0); %Neutrophils 82.8 % (42.0-75.0); Hemoglobin 10.7 g/dL (12.0-16.0); Mean Corpuscular HGB CONC 32.6 g/dL (32.0-36.0); Mean Corpuscular Hemoglobin 30.8 pg (27.0-31.0); Mean Corpuscular Volume 94.4 fL (78.0-98.0); Mean Platelet Volume 7.1 fL (7.4-10.4); Platelet Count 197 thou/uL (130-400); Red Blood Cell (RBC) Count 3.46 mill/uL (4.20-5.40); White Blood Cell (WBC) Count 3.7 thou/uL (4.8-10.8)
[2021-11-06 12:21] LABS: ALT (SGPT) 11 U/L (8-55); AST (SGOT) 15 U/L (5-34); Albumin 3.2 g/dL (3.4-4.8); Alkaline Phosphatase 39 U/L (40-110); Anion Gap 8 mmol/L (10-20); BUN (Urea Nitrogen) 15 mg/dL (9.8-20.1); Bilirubin, Total 0.2 mg/dL (0.2-1.2); Calc. Creatinine Clearance 0 mL/min (70-130); Calcium 9.8 mg/dL (7.8-10.44); Carbon Dioxide 34 mmol/L (23-31); Chloride 101 mmol/L (98-107); Globulin 3.2 g/dL (2.4-3.5); Glucose 169 mg/dL (80-115); Potassium 3.9 mmol/L (3.5-5.1); Protein, Total 6.4 g/dL (5.8-8.1); Sodium 139 mmol/L (136-145)
[2021-11-06 13:03] LABS: Bacteria/HPF 2+ HPF (None Seen); Bilirubin Negative (Negative); Blood, Urine Negative (Negative); Clarity Turbid (Clear); Glucose, Urine (Dipstick) Normal (Negative); Ketone, Urine Negative (Negative); Leukocyte 250 Leu/uL (Negative); Nitrite Negative (Negative); Protein, Urine (Dipstick) Negative (Neg-Trace); RBC/HPF 0-3 HPF (0-3); Specific Gravity, Urine 1.018 (1.002-1.036); Urobilinogen Normal mg/dL (Less than 2); WBC/HPF Greater than 50 HPF (0-3); pH, Urine 6.5 (5.0-9.0)
== END 2021-11-06 13:41 | disposition home or self-care (01) ==
LOC: ERS 11:01
DX: M54.50 Low back pain, unspecified (principal); N39.0 Urinary tract infection, site not specified; M25.511 Pain in right shoulder; M25.551 Pain in right hip; I44.0 Atrioventricular block, first degree; E66.01 Morbid (severe) obesity due to excess calories; I10 Essential (primary) hypertension; E11.9 Type 2 diabetes mellitus without complications; K21.9 Gastro-esophageal reflux disease without esophagitis; J44.9 Chronic obstructive pulmonary disease, unspecified; D64.9 Anemia, unspecified; M19.90 Unspecified osteoarthritis, unspecified site; W07.XXXA Fall from chair, initial encounter; Z87.891 Personal history of nicotine dependence; Z68.45 Body mass index [BMI] 70 or greater, adult; Z87.19 Personal history of other diseases of the digestive system; Z79.4 Long term (current) use of insulin; Z79.899 Other long term (current) drug therapy
CPT/HCPCS: 36415; 71045; 72131; 72170; 72192; 80053; 81003; 81015; 84484; 85025; 93005; 96374; J3010

== ENCOUNTER 2021-11-08 06:28 | Day surgery (SDC) | payer MEDICARE, MEDICAID ==
[2021-11-04 15:13] VITALS: BMI 46.4
[2021-11-08] MEDS ORDERED: Midazolam HCl 2 mg/2 ml Vial ONE (07:24)
[2021-11-08] MEDS ORDERED: Ketamine 50 MG/ML (10ML VIAL) ONE (07:31)
[2021-11-08] MEDS ORDERED: PROPOFOL 200 MG/20 ML VIAL ONE (08:28)
[2021-11-08] MEDS ORDERED: Lidocaine 1% PF 5 ML VIAL ONE (08:28)
[2021-11-08] MEDS ORDERED: Glycopyrrolate 0.2 MG/ML 5 ML SYRINGE ONE (08:28)
== END 2021-11-08 10:05 | disposition home or self-care (01) ==
LOC: SDC 06:28
PROVIDERS: ATTEND Internal Medicine
PROC: 0DBH8ZX Excision of Cecum, Via Natural or Artificial Opening Endoscopic, Diagnostic (ICD-10-PCS; principal; 2021-11-08)
DX: K63.3 Ulcer of intestine (principal); D17.5 Benign lipomatous neoplasm of intra-abdominal organs; K64.8 Other hemorrhoids; K64.4 Residual hemorrhoidal skin tags; D64.9 Anemia, unspecified; K21.9 Gastro-esophageal reflux disease without esophagitis; K75.4 Autoimmune hepatitis; J43.9 Emphysema, unspecified; E11.9 Type 2 diabetes mellitus without complications; F17.200 Nicotine dependence, unspecified, uncomplicated; J30.1 Allergic rhinitis due to pollen; J30.81 Allergic rhinitis due to animal (cat) (dog) hair and dander; J30.89 Other allergic rhinitis; Z86.010 Personal history of colon polyps; Z79.4 Long term (current) use of insulin; Z79.84 Long term (current) use of oral hypoglycemic drugs; Z79.899 Other long term (current) drug therapy; Z88.5 Allergy status to narcotic agent; Z91.038 Other insect allergy status; Z91.040 Latex allergy status; Z91.048 Other nonmedicinal substance allergy status; Z90.49 Acquired absence of other specified parts of digestive tract; Z98.1 Arthrodesis status
CPT/HCPCS: 36416; 88305; 88313; 88341; 88342; 93005; 93010; J2250; J2704

== ENCOUNTER 2021-11-28 12:33 | Outpatient (CLI) | payer MEDICARE | END 2021-11-28 12:34 | disposition home or self-care (01) | LOC: BICMAMMO 12:33 | PROVIDERS: ATTEND Nurse Practitioner Family | DX: C50.919 Malignant neoplasm of unspecified site of unspecified female breast (principal) | CPT/HCPCS: 77066; G0279 ==

== ENCOUNTER 2021-12-11 08:00 | Inpatient (IN) | payer MEDICARE, MEDICAID ==
[2021-12-16] MEDS ORDERED: Fentanyl 250 MCG/5 ML VIAL ONE ×2 (06:56→10:36)
[2021-12-16] MEDS ORDERED: ceFAZolin Sodium (SDC) 2 GM/100 ML BAG ONE (07:34)
[2021-12-16] MEDS ORDERED: PROPOFOL 200 MG/20 ML VIAL ONE (08:18)
[2021-12-16] MEDS ORDERED: Dexamethasone 20 MG/5 ML VIAL ONE (08:18)
[2021-12-16] MEDS ORDERED: Rocuronium Bromide 10 MG/ML (10ML VIAL) ONE (08:18)
[2021-12-16] MEDS ORDERED: Lidocaine 1% PF 5 ML VIAL ONE (08:18)
[2021-12-16] MEDS ORDERED: Labetalol HCl 100 MG/20 ML VIAL ONE (08:18)
[2021-12-16] MEDS ORDERED: Ondansetron PF 4 MG/2 ML Vial ONE (08:18)
[2021-12-16] MEDS ORDERED: SUGAMMADEX SODIUM 200 MG/2 ML VIAL ONE (09:38)
[2021-12-16] MEDS ORDERED: Morphine 4 MG/ML VIAL ONE ×3 (10:43→12:10)
[2021-12-16] MEDS ORDERED: Promethazine HCl 25 MG/ML VIAL ONE ×2 (10:59→12:34)
[2021-12-16] MEDS ORDERED: Promethazine HCl 25 MG/ML VIAL IM/IV PRN (12:30)
[2021-12-16] MEDS ORDERED: PACU-Morphine 4MG/ML VIAL SLOW IVP PRN ×2 (12:30)
[2021-12-16] MEDS ORDERED: Ondansetron HCl/PF 4 MG/2 ML Vial IVP PRN (12:30)
[2021-12-16 12:54] VITALS: BMI 45.3
[2021-12-16] MEDS ORDERED: Artificial Tear Sol 15 ML BOT EA EYE PRN (14:16)
[2021-12-16] MEDS ORDERED: Ibuprofen 200 MG TAB PO PRN (14:18)
[2021-12-16] MEDS ORDERED: Morphine 4 MG/ML VIAL SLOW IVP PRN (14:26)
[2021-12-16] MEDS ORDERED: diphenhydrAMINE 50 MG/ML VIAL IVP PRN (14:30)
[2021-12-16] MEDS ORDERED: Mag-Al 1200 mg/1200 mg/30 ML UDCUP PO PRN (14:30)
[2021-12-16] MEDS ORDERED: Promethazine 25 MG TAB PO PRN (14:30)
[2021-12-16] MEDS ORDERED: traMADol HCl 50 MG TAB PO PRN ×2 (14:30)
[2021-12-16] MEDS ORDERED: Ondansetron PF 4 MG/2 ML Vial IM PRN (14:30)
[2021-12-16] MEDS ORDERED: Promethazine HCl 12.5 MG SUPP PR PRN (14:30)
[2021-12-16] MEDS ORDERED: diphenhydrAMINE 25 MG CAP PO PRN (14:30)
[2021-12-16] MEDS ORDERED: Milk Of Magnesia 30 ML UDCUP PO PRN (14:30)
[2021-12-16] MEDS ORDERED: Promethazine HCl 25 MG/ML VIAL IM PRN (14:30)
[2021-12-16] MEDS: Morphine 4 MG/ML VIAL SLOW IVP PRN ×2 (14:35→16:01)
[2021-12-16] MEDS: Gabapentin 300 MG CAP PO SCH ×2 (14:36→19:53)
[2021-12-16] MEDS: Sodium Chloride 0.9% 1,000 ML IV SCH ×2 (14:36→22:37)
[2021-12-16] MEDS: HYDROcodone/Acetaminophen 10/325 mg Tablet PO PRN ×2 (14:44→19:59)
[2021-12-16] MEDS ORDERED: Dextrose 5% in Water 1,000 ML IV PRN (14:46)
[2021-12-16] MEDS ORDERED: HumaLOG 300 UNITS/3 ML VIAL SC PRN (14:46)
[2021-12-16] MEDS ORDERED: Dextrose 50% Abboject 50 ML SYRINGE SLOW IVP PRN (14:46)
[2021-12-16] MEDS ORDERED: Lisinopril 5 MG TAB PO SCH (15:00)
[2021-12-16] MEDS ORDERED: Loratadine 10 MG TAB PO PRN (15:03)
[2021-12-16] MEDS ORDERED: ALPRAZolam 1 MG TAB PO PRN (15:03)
[2021-12-16] MEDS ORDERED: Pregabalin 50 MG CAP PO PRN (15:06)
[2021-12-16] MEDS ORDERED: Sucralfate 1 GM/10 ML UDCUP PO PRN (15:07)
[2021-12-16] MEDS ORDERED: CEFAZOLIN 2 GM, Admixture Fee 1 EACH in Sodium Chloride 0.9% 100 ML IVPB SCH (16:00)
[2021-12-16] MEDS: HumaLOG 300 UNITS/3 ML VIAL SC PRN (16:01)
[2021-12-16 16:24] LABS: Hemoglobin A1c 6.3 % (4.0-6.0)
[2021-12-16] MEDS: CEFAZOLIN 2 GM, Admixture Fee 1 EACH in Sodium Chloride 0.9% 100 ML IVPB SCH ×2 (16:40→23:58)
[2021-12-16] MEDS: Fluticasone Propionate Nasal Spray 16 gm Bottle NASAL SCH (19:53)
[2021-12-16] MEDS: Lantus 1000 UNITS/10 ML VIAL SC SCH (19:53)
[2021-12-16] MEDS: guaiFENesin ER 600 MG TAB PO SCH (19:53)
[2021-12-16] MEDS: Divalproex Sodium 250 MG (DR) TAB PO SCH (19:54)
[2021-12-16] MEDS: Vit A,C & E/Lutein/Minerals Tablet PO SCH (19:54)
[2021-12-16] MEDS: Varenicline Tartrate 0.5 MG TAB PO SCH (19:54)
[2021-12-16] MEDS: Cyclobenzaprine 10 MG TAB PO PRN (19:59)
[2021-12-16] MEDS: Mometasone 200 MCG/Formoterol 5 MCG 120 PUFF INHALER INH SCH (20:00)
[2021-12-16] MEDS ORDERED: Non-Formulary Item 1 EACH (Divalproex [Depakote] 125 MG Tab) PO SCH (21:00)
[2021-12-16] MEDS ORDERED: Non-Formulary Item 1 EACH (Fluticasone Propionate [Flonase Allergy Relief] 9.9 ML Bottle) L NARE SCH (21:00)
[2021-12-16] MEDS ORDERED: Varenicline Tartrate 0.5 MG TAB PO SCH (21:00)
[2021-12-17] MEDS: HYDROcodone/Acetaminophen 10/325 mg Tablet PO PRN ×5 (03:37→22:15)
[2021-12-17] MEDS: Cyclobenzaprine 10 MG TAB PO PRN (06:23)
[2021-12-17 07:00] LABS: Cardiac Risk 2.6 (Less than 4.5)
[2021-12-17] MEDS: Mometasone 200 MCG/Formoterol 5 MCG 120 PUFF INHALER INH SCH ×2 (08:07→18:59)
[2021-12-17] MEDS: Fluticasone Propionate Nasal Spray 16 gm Bottle NASAL SCH ×2 (08:26→21:31)
[2021-12-17] MEDS: Varenicline Tartrate 0.5 MG TAB PO SCH ×2 (08:26→21:30)
[2021-12-17] MEDS: Gabapentin 300 MG CAP PO SCH ×3 (08:27→21:30)
[2021-12-17] MEDS: Alogliptin 25 MG TAB PO SCH (08:27)
[2021-12-17] MEDS: guaiFENesin ER 600 MG TAB PO SCH ×2 (08:27→21:30)
[2021-12-17] MEDS: Divalproex Sodium 250 MG (DR) TAB PO SCH ×2 (08:27→21:30)
[2021-12-17] MEDS: Lisinopril 5 MG TAB PO SCH (08:28)
[2021-12-17] MEDS: FLUoxetine HCl 20 MG CAP PO SCH (08:28)
[2021-12-17] MEDS: Ezetimibe 10 MG TAB PO SCH (08:28)
[2021-12-17] MEDS: Vit A,C & E/Lutein/Minerals Tablet PO SCH ×2 (08:28→21:31)
[2021-12-17] MEDS: Cyanocobalamin (Vitamin B-12) 1,000 MCG TAB PO SCH (08:28)
[2021-12-17] MEDS: Furosemide 40 MG TAB PO SCH (08:28)
[2021-12-17] MEDS: azaTHIOprine 50 MG TAB PO SCH (08:28)
[2021-12-17] MEDS: Lantus 1000 UNITS/10 ML VIAL SC SCH ×2 (08:29→21:31)
[2021-12-17] MEDS ORDERED: Albuterol Sulfate 2.5 mg/3 ml Neb NEB SCH (09:00)
[2021-12-17] MEDS ORDERED: azaTHIOprine 50 MG TAB PO SCH (09:00)
[2021-12-17] MEDS ORDERED: Docusate Sodium 100 MG/10 ML UDCUP PO SCH (09:00)
[2021-12-17] MEDS: CEFAZOLIN 2 GM, Admixture Fee 1 EACH in Sodium Chloride 0.9% 100 ML IVPB SCH ×2 (09:56→17:47)
[2021-12-17] MEDS: Morphine 4 MG/ML VIAL SLOW IVP PRN (14:48)
[2021-12-17] MEDS: Sodium Chloride 0.9% 1,000 ML IV SCH (17:31)
[2021-12-18] MEDS: CEFAZOLIN 2 GM, Admixture Fee 1 EACH in Sodium Chloride 0.9% 100 ML IVPB SCH (00:06)
[2021-12-18] MEDS: Acetaminophen 500 MG TAB PO PRN ×2 (04:15→18:07)
[2021-12-18] MEDS: Morphine 4 MG/ML VIAL SLOW IVP PRN (06:23)
[2021-12-18] MEDS: HumaLOG 300 UNITS/3 ML VIAL SC PRN ×2 (06:24→12:40)
[2021-12-18] MEDS: Cephalexin 250 MG CAP PO SCH ×3 (06:53→18:03)
[2021-12-18] MEDS: Sodium Chloride 0.9% 1,000 ML IV SCH ×2 (07:28→22:31)
[2021-12-18] MEDS: Mometasone 200 MCG/Formoterol 5 MCG 120 PUFF INHALER INH SCH ×2 (08:01→19:30)
[2021-12-18] MEDS: Albuterol Sulfate 2.5 mg/3 ml Neb NEB SCH (08:05)
[2021-12-18] MEDS: Divalproex Sodium 250 MG (DR) TAB PO SCH ×2 (08:31→22:28)
[2021-12-18] MEDS: Fluticasone Propionate Nasal Spray 16 gm Bottle NASAL SCH ×2 (08:31→22:24)
[2021-12-18] MEDS: Alogliptin 25 MG TAB PO SCH (08:31)
[2021-12-18] MEDS: Cyanocobalamin (Vitamin B-12) 1,000 MCG TAB PO SCH (08:32)
[2021-12-18] MEDS: Varenicline Tartrate 0.5 MG TAB PO SCH (08:32)
[2021-12-18] MEDS: FLUoxetine HCl 20 MG CAP PO SCH (08:33)
[2021-12-18] MEDS: Vit A,C & E/Lutein/Minerals Tablet PO SCH ×2 (08:33→22:28)
[2021-12-18] MEDS: Gabapentin 300 MG CAP PO SCH ×3 (08:33→22:28)
[2021-12-18] MEDS: guaiFENesin ER 600 MG TAB PO SCH ×2 (08:33→22:30)
[2021-12-18] MEDS: azaTHIOprine 50 MG TAB PO SCH (08:33)
[2021-12-18] MEDS: Ezetimibe 10 MG TAB PO SCH (08:33)
[2021-12-18] MEDS: Furosemide 40 MG TAB PO SCH (08:33)
[2021-12-18] MEDS: Lisinopril 5 MG TAB PO SCH (08:33)
[2021-12-18] MEDS: Lantus 1000 UNITS/10 ML VIAL SC SCH ×2 (09:45→22:31)
[2021-12-19] MEDS: Varenicline Tartrate 0.5 MG TAB PO SCH ×2 (00:53→08:52)
[2021-12-19] MEDS: Cephalexin 250 MG CAP PO SCH ×2 (00:54→05:52)
[2021-12-19] MEDS: Albuterol Sulfate 2.5 mg/3 ml Neb NEB SCH (07:03)
[2021-12-19] MEDS: Mometasone 200 MCG/Formoterol 5 MCG 120 PUFF INHALER INH SCH (07:06)
[2021-12-19] MEDS ORDERED: Polyethylene Glycol 3350 17 GM Packet PO PRN (07:26)
[2021-12-19 08:33] VITALS: TEMP 99.4
[2021-12-19] MEDS: FLUoxetine HCl 20 MG CAP PO SCH (08:43)
[2021-12-19] MEDS: Vit A,C & E/Lutein/Minerals Tablet PO SCH (08:44)
[2021-12-19] MEDS: Ezetimibe 10 MG TAB PO SCH (08:44)
[2021-12-19] MEDS: Gabapentin 300 MG CAP PO SCH (08:44)
[2021-12-19] MEDS: guaiFENesin ER 600 MG TAB PO SCH (08:44)
[2021-12-19] MEDS: Furosemide 40 MG TAB PO SCH (08:44)
[2021-12-19] MEDS: Alogliptin 25 MG TAB PO SCH (08:44)
[2021-12-19] MEDS: azaTHIOprine 50 MG TAB PO SCH (08:44)
[2021-12-19] MEDS: HYDROcodone/Acetaminophen 10/325 mg Tablet PO PRN (08:45)
[2021-12-19] MEDS: Lisinopril 5 MG TAB PO SCH (08:45)
[2021-12-19] MEDS: Fluticasone Propionate Nasal Spray 16 gm Bottle NASAL SCH (08:46)
[2021-12-19 08:47] VITALS: BP 150/80
[2021-12-19] MEDS: Lantus 1000 UNITS/10 ML VIAL SC SCH (08:49)
[2021-12-19] MEDS: Cyanocobalamin (Vitamin B-12) 1,000 MCG TAB PO SCH (08:53)
[2021-12-19] MEDS: Divalproex Sodium 250 MG (DR) TAB PO SCH (08:54)
[2021-12-19] MEDS ORDERED: Polyethylene Glycol 3350 17 GM Packet PO SCH (09:00)
[2021-12-19] MEDS ORDERED: Docusate 100 MG CAP PO SCH (09:00)
[2021-12-19] MEDS: Sodium Chloride 0.9% 1,000 ML IV SCH (09:08)
[2021-12-23] MEDS ORDERED: BUTRANS 20 MCG SCH (15:00)
== END 2021-12-19 10:25 | DRG 460 ==
LOC: SURG A 12-16 06:44 → EDSTATUS 12-16 08:00 → SURG A 12-16 12:46
PROVIDERS: ADMIT Neurological Surgery; ATTEND Neurological Surgery
PROC: 0SG1071 Fusion of 2 or more Lumbar Vertebral Joints with Autologous Tissue Substitute, Posterior Approach, Posterior Column, Open Approach (ICD-10-PCS; principal; 2021-12-16)
PROC: 0QP004Z Removal of Internal Fixation Device from Lumbar Vertebra, Open Approach (ICD-10-PCS; 2021-12-16)
PROC: 01NB0ZZ Release Lumbar Nerve, Open Approach (ICD-10-PCS; 2021-12-16)
DX: M48.062 Spinal stenosis, lumbar region with neurogenic claudication (principal); Z68.42 Body mass index [BMI] 45.0-49.9, adult; E11.9 Type 2 diabetes mellitus without complications; K21.9 Gastro-esophageal reflux disease without esophagitis; I10 Essential (primary) hypertension; I25.10 Atherosclerotic heart disease of native coronary artery without angina pectoris; J44.9 Chronic obstructive pulmonary disease, unspecified; M79.7 Fibromyalgia; R32 Unspecified urinary incontinence; J30.9 Allergic rhinitis, unspecified; F43.10 Post-traumatic stress disorder, unspecified; F32.9 Major depressive disorder, single episode, unspecified; E66.01 Morbid (severe) obesity due to excess calories; F17.210 Nicotine dependence, cigarettes, uncomplicated; F41.1 Generalized anxiety disorder; K75.4 Autoimmune hepatitis; H35.30 Unspecified macular degeneration; G56.00 Carpal tunnel syndrome, unspecified upper limb; M19.90 Unspecified osteoarthritis, unspecified site; K59.03 Drug induced constipation; T40.605A Adverse effect of unspecified narcotics, initial encounter; Z99.81 Dependence on supplemental oxygen; Z85.3 Personal history of malignant neoplasm of breast; Z91.040 Latex allergy status; Z88.5 Allergy status to narcotic agent; Z91.09 Other allergy status, other than to drugs and biological substances; Z79.899 Other long term (current) drug therapy; Z79.84 Long term (current) use of oral hypoglycemic drugs; Z79.52 Long term (current) use of systemic steroids; Z90.49 Acquired absence of other specified parts of digestive tract; Z79.810 Long term (current) use of selective estrogen receptor modulators (SERMs); Z90.12 Acquired absence of left breast and nipple
CPT/HCPCS: 36415; 36416; 76000; 80061; 83036; 94640; C1713; C1768; C1776; J0690; J1100; J1815; J2270; J2405; J2550; J2704; J3010; J3370; J3490; J7050; J7500; J7611

== ENCOUNTER 2021-12-12 12:29 | Outpatient (CLI) | payer MEDICARE ==
[2021-12-12 13:42] LABS: Hemoglobin 11.5 g/dL (12.0-15.5); Mean Corpuscular HGB CONC 30.3 g/dL (32.0-36.0); Mean Corpuscular Hemoglobin 29.2 pg (27.0-33.0); Mean Corpuscular Volume 96.4 fl (81.6-98.3); Mean Platelet Volume 9.9 fl (7.4-10.4); Platelet Count 225 10x3/uL (150-450); RBC Distribution Width 17.2 % (11.5-14.5); Red Blood Cell (RBC) Count 3.94 10x6/uL (3.90-5.03); White Blood Cell (WBC) Count 4.2 10x3/uL (3.5-10.5)
[2021-12-12 13:59] LABS: Anion Gap 13 mmol/L (10-20); BUN (Urea Nitrogen) 11 mg/dL (9.8-20.1); Calc. Creatinine Clearance 0 mL/min (70-130); Carbon Dioxide 31 mmol/L (23-31); Chloride 103 mmol/L (98-107); Glucose 142 mg/dL (80-115); Potassium 3.8 mmol/L (3.5-5.1); Sodium 143 mmol/L (136-145)
[2021-12-13 00:12] LABS: SARS-CoV-2 PCR by NAA Not Detected (NotDetected)
== END 2021-12-12 12:30 | disposition home or self-care (01) ==
LOC: LABBT 12:29
PROVIDERS: ATTEND Neurological Surgery
DX: Z01.818 Encounter for other preprocedural examination (principal); M48.062 Spinal stenosis, lumbar region with neurogenic claudication; Z20.822 Contact with and (suspected) exposure to COVID-19
CPT/HCPCS: 80048; 85027; 93005; U0003; U0005; 93010

== ENCOUNTER 2022-01-02 10:41 | Outpatient (CLI) | payer OTHER | END 2022-01-02 10:42 | disposition home or self-care (01) | LOC: TBSIIMAG 10:41 | PROVIDERS: ATTEND Physician Assistant | DX: M47.26 Other spondylosis with radiculopathy, lumbar region (principal); Z98.1 Arthrodesis status; Z98.890 Other specified postprocedural states | CPT/HCPCS: 72100 ==

== ENCOUNTER 2022-02-05 16:22 | Emergency (ER) | payer MEDICARE, OTHER ==
[~2022-02-05 16:22] MED LIST changes: -Acetaminophen 500 MG TAB ONE; -Bupivacaine HCl 0.5%/Epinephrine 1:200,000/PF 30 ml Vial ONE; -Bupivacaine/Epinephrine 0.25% 30 ML VIAL ONE; -Fentanyl 100 MCG/2 ML VIAL ONE; -Gabapentin 300 MG CAP ONE; -HYDROcodone/Acetaminophen 5/325 mg Tablet ONE; +Iopamidol-370 76% 500 ML 1 ML ONE; -Ketorolac Tromethamine 30 MG/ML VIAL ONE; -Lidocaine 1% PF 5 ML VIAL ONE; -Lidocaine 2% PF 5 ML VIAL ONE; -Lidocaine 2% w/Epinephrine 1:200K 20 ML VIAL ONE; -Ondansetron PF 4 MG/2 ML Vial ONE; -PROPOFOL 200 MG/20 ML VIAL ONE
[2022-02-05] MEDS ORDERED: Ondansetron PF 4 MG/2 ML Vial ONE (17:20)
[2022-02-05] MEDS ORDERED: Morphine 4 MG/ML VIAL ONE (17:20)
[2022-02-05 17:22] LABS: #Lymphocytes 0.6 thou/uL (1.20-3.40); #Monocytes 0.4 thou/uL (0.11-0.59); #Neutrophils 4.2 thou/uL (1.40-6.50); %Basophils 0.2 % (0.0-1.0); %Eosinophils 0.6 % (0.0-10.0); %Lymphocytes 11.9 % (21.0-51.0); %Monocytes 6.8 % (0.0-10.0); %Neutrophils 80.6 % (42.0-75.0); Hemoglobin 11.1 g/dL (12.0-16.0); Mean Corpuscular HGB CONC 32.6 g/dL (32.0-36.0); Mean Corpuscular Hemoglobin 31.5 pg (27.0-31.0); Mean Corpuscular Volume 96.8 fL (78.0-98.0); Mean Platelet Volume 7.4 fL (7.4-10.4); Platelet Count 162 thou/uL (130-400); RBC Distribution Width 17.6 % (11.5-14.5); Red Blood Cell (RBC) Count 3.53 mill/uL (4.20-5.40); White Blood Cell (WBC) Count 5.2 thou/uL (4.8-10.8)
[2022-02-05 17:44] LABS: ALT (SGPT) 8 U/L (8-55); AST (SGOT) 16 U/L (5-34); Albumin 3.3 g/dL (3.4-4.8); Alkaline Phosphatase 48 U/L (40-110); Anion Gap 13 mmol/L (10-20); BUN (Urea Nitrogen) 12 mg/dL (9.8-20.1); Bilirubin, Total 0.2 mg/dL (0.2-1.2); Calc. Creatinine Clearance 0 mL/min (70-130); Calcium 8.5 mg/dL (7.8-10.44); Carbon Dioxide 28 mmol/L (23-31); Chloride 102 mmol/L (98-107); Globulin 2.9 g/dL (2.4-3.5); Glucose 203 mg/dL (80-115); Potassium 4.6 mmol/L (3.5-5.1); Protein, Total 6.2 g/dL (5.8-8.1); Sodium 138 mmol/L (136-145)
[2022-02-05 18:31] LABS: Bacteria/HPF 4+ HPF (None Seen); Bilirubin Negative (Negative); Blood, Urine 1+ (Negative); Clarity Turbid (Clear); Glucose, Urine (Dipstick) Normal (Negative); Ketone, Urine Negative (Negative); Leukocyte 250 Leu/uL (Negative); Nitrite Negative (Negative); Protein, Urine (Dipstick) Negative (Neg-Trace); Specific Gravity, Urine 1.014 (1.002-1.036); Squamous Epithelial 0-3 HPF (0-3); Urobilinogen Normal mg/dL (Less than 2); WBC/HPF 21-50 HPF (0-3)
[2022-02-05 19:49] LABS: SARS-CoV-2 NAA Rapid Test DETECTED (NotDetected)
== END 2022-02-05 20:28 | disposition home or self-care (01) ==
LOC: ERS 16:22
DX: U07.1 COVID-19 (principal); N39.0 Urinary tract infection, site not specified; I44.0 Atrioventricular block, first degree; K21.9 Gastro-esophageal reflux disease without esophagitis; E11.9 Type 2 diabetes mellitus without complications; I10 Essential (primary) hypertension; J45.909 Unspecified asthma, uncomplicated; M19.90 Unspecified osteoarthritis, unspecified site; J42 Unspecified chronic bronchitis; D50.0 Iron deficiency anemia secondary to blood loss (chronic); Z87.891 Personal history of nicotine dependence; Z79.4 Long term (current) use of insulin; Z87.19 Personal history of other diseases of the digestive system
CPT/HCPCS: 0240U; 71045; 74177; 80053; 83605; 83880; 84484; 85025; 87040; 87077; 87086; 87186; 93005; 96374; 96375; 99285; 36415; 81003; 81015; J2270; J2405; Q9967

== ENCOUNTER 2022-04-14 09:31 | Outpatient (CLI) | payer MEDICARE, OTHER | END 2022-04-14 09:32 | disposition home or self-care (01) | LOC: ULT 09:31 | PROVIDERS: ATTEND Physician Assistant Medical | DX: K75.4 Autoimmune hepatitis (principal); R13.10 Dysphagia, unspecified; R19.7 Diarrhea, unspecified; R11.2 Nausea with vomiting, unspecified; R16.0 Hepatomegaly, not elsewhere classified; K22.89 Other specified disease of esophagus; D50.8 Other iron deficiency anemias; D53.8 Other specified nutritional anemias | CPT/HCPCS: 74220; 76705; 82728; 83540; 83550 ==

== ENCOUNTER 2022-04-28 08:31 | Outpatient (CLI) | payer MEDICARE, OTHER | END 2022-04-28 08:32 | disposition home or self-care (01) | LOC: NM 08:31 | PROVIDERS: ATTEND Physician Assistant Medical | DX: R11.2 Nausea with vomiting, unspecified (principal); K75.4 Autoimmune hepatitis; K52.9 Noninfective gastroenteritis and colitis, unspecified | CPT/HCPCS: 78264; 80053; 82105; 85025; 85610; A9541; 36415; 87177; 87505 ==

== ENCOUNTER 2022-05-20 13:25 | Outpatient (CLI) | payer MEDICARE, MEDICAID | END 2022-05-20 13:26 | disposition home or self-care (01) | PROVIDERS: ATTEND Student in an Organized Health Care Education/Training Program | DX: Z99.3 Dependence on wheelchair (principal) ==

== ENCOUNTER 2022-10-02 08:25 | Outpatient (CLI) | payer OTHER | END 2022-10-02 08:26 | disposition home or self-care (01) | LOC: ULT 08:25 | PROVIDERS: ATTEND Physician Assistant Medical | DX: K75.4 Autoimmune hepatitis (principal); K52.9 Noninfective gastroenteritis and colitis, unspecified; K74.60 Unspecified cirrhosis of liver; K76.6 Portal hypertension | CPT/HCPCS: 76705 ==

== ENCOUNTER 2023-03-12 12:14 | Outpatient (CLI) | payer OTHER, MEDICAID | END 2023-03-12 12:15 | disposition home or self-care (01) | LOC: MRI 12:14 | PROVIDERS: ATTEND Physician Assistant Medical | DX: R97.8 Other abnormal tumor markers (principal); R74.8 Abnormal levels of other serum enzymes; K86.89 Other specified diseases of pancreas; K83.1 Obstruction of bile duct; K83.8 Other specified diseases of biliary tract | CPT/HCPCS: 74183 ==